=== PATIENT | male | born 1955 | race Caucasian/White ===

== ENCOUNTER 2021-04-06 11:19 | Emergency (ER) | payer OTHER, SELFPAY ==
[2021-04-06 12:04] VITALS: BP 158/65; PULSE 66; RESP 18; TEMP 36.9; O2SAT 97; BMI 25.1
[2021-04-06 13:57] LABS: Basophils % 0.4 %; Eosinophils # 0.1 10^3/uL (0.0-0.8); Eosinophils % 0.8 %; Hematocrit 45.9 % (42.0-52.0); Lymphocytes # 1.7 10^3/uL (0.8-4.8); Lymphocytes % 22.9 %; Mean Corpuscular HGB Conc 32.7 g/dL (30.0-36.0); Mean Corpuscular Hemoglobin 29.3 pg (28.0-34.0); Mean Corpuscular Volume 89.6 fL (80-94); Mean Platelet Volume 12.1 fL (7.4-10.4); Monocytes # 0.5 10^3/uL (0.2-0.9); Neutrophils # 5.08 10^3/uL (1.8-7.7); Neutrophils % 68.6 %; Nucleated Red Blood Cells % 0 %; Platelet Count 187 10^3/cmm (130-400); Red Blood Count 5.12 10^6/uL (4.1-5.3); White Blood Count 7.4 10^3/uL (4.0-10.0)
[2021-04-06 14:17] LABS: Alanine Aminotransferase 17 U/L (0-41); Albumin Level 4.4 g/dL (3.5-5.2); Alkaline Phosphatase 69 IU/L (40-130); Anion Gap 14.8 (5-19); Aspartate Amino Transferase 15 U/L (0-40); Blood Urea Nitrogen 11 mg/dL (8-23); Calcium 9.3 mg/dL (8.5-10.5); Carbon Dioxide 25 mmol/L (22-29); Chloride 104 mmol/L (98-107); Globulin 2.5 g/dL (1.3-4.6); Glomerular Filtration Rate 97.3 mL/min (90-130); Glucose 94 mg/dL (65-115); Osmolality Calculated 289 mOsm/kg (285-295); Potassium 3.8 mmol/L (3.5-5.1); Sodium 140 mmol/L (136-145); Total Bilirubin 0.5 mg/dL (0.15-1.2); Total Protein 6.9 g/dL (6.6-8.7)
== END 2021-04-06 15:18 | disposition left against medical advice (07) ==
PROVIDERS: Family Medicine
DX: Z53.21 Procedure and treatment not carried out due to patient leaving prior to being seen by health care provider (principal)
CPT/HCPCS: 80053; 85025

== ENCOUNTER → 2021-05-12 09:59 | Outpatient (BNVA) | payer OTHER, SELFPAY | PROVIDERS: PCP Family Medicine; Referring Provider Family Medicine; Visit Provider Urology | DX: Z12.5 Encounter for screening for malignant neoplasm of prostate (principal); N40.0 Benign prostatic hyperplasia without lower urinary tract symptoms; R97.20 Elevated prostate specific antigen [PSA] | CPT/HCPCS: 81003; G0103 ==

== ENCOUNTER → 2021-05-19 11:38 | Outpatient (BNVA) | payer OTHER, SELFPAY | PROVIDERS: PCP Family Medicine; Referring Provider Family Medicine; Visit Provider Specialist | DX: G30.9 Alzheimer's disease, unspecified (principal); F02.80 Dementia in other diseases classified elsewhere, unspecified severity, without behavioral disturbance, psychotic disturbance, mood disturbance, and anxiety; Z87.891 Personal history of nicotine dependence | CPT/HCPCS: 96116; 99205 ==

== ENCOUNTER → 2021-08-18 13:50 | Outpatient (BNVA) | payer OTHER, SELFPAY | PROVIDERS: PCP Family Medicine; Visit Provider Specialist | DX: G30.9 Alzheimer's disease, unspecified (principal); F02.80 Dementia in other diseases classified elsewhere, unspecified severity, without behavioral disturbance, psychotic disturbance, mood disturbance, and anxiety; I69.320 Aphasia following cerebral infarction; Z87.891 Personal history of nicotine dependence | CPT/HCPCS: 99213; 99214 ==

== ENCOUNTER 2021-11-03 21:39 | Emergency (ER) | payer OTHER, MEDICARE, SELFPAY ==
[2021-11-03 21:44] VITALS: BP 126/89; PULSE 66; RESP 20; TEMP 36.3; O2SAT 94; BMI 25.8
--- NOTE | 2021-11-03 21:46 | W.ED.ANXIETY ---
HPI - Anxiety General: Chief Complaint: Anxiety Stated Complaint: anxiety Time Seen by Provider: 11/03/21 21:45 History of Present Illness: HPI narrative: Mr. Yuan is a 66-year-old gentleman with history of hypertension and reported Alzheimer's who presents emergency department due to arm tingling and anxiety. He reports being in his baseline health earlier this morning. He got into an argument with his and noticed at that time some left arm tingling. This was mild in intensity and relieved itself over about 2-hour period. He did notice that his blood pressure was elevated in addition of this. He laid down for nap and woke up feeling mildly anxious. He denies associated shortness of breath or specific chest pain. Denies other specific changes in health. No others known provoking or exacerbating factors identified. MD complaint: anxiety and other Onset (ago): hour(s) Symptoms: other Severity: mild Quality: constant and improving Place: home History of similar episodes: No Provoking factors: emotional stress Relieving factors: nothing Exacerbating factors: nothing Associated symptoms: Reports no associated symptoms Review of Systems General: Reports: 10 or more systems reviewed and unremarkable except in HPI and below PFSH ED PFSH: Medical History Benign prostatic hyperplasia without lower urinary tract symptoms Cardiac arrhythmia, unspecified Elevated PSA Mildly elevated PSA with negative TRUS/biopsy in 2010. Large benign feeling AIDE. Essential (primary) hypertension Surgical History History of ankle surgery History of surgery on arm Family History Father , AT AGE 67 Cancer Mother , AT AGE 72 No problems noted. Social History Smoking and tobacco status: former smoker (quit 5 years ago) Alcohol intake: never Marital status: / Current occupational status: retired History of recent travel: No Physical Exam Const: COMMON NORMALS: alert GENERAL APPEARANCE: cooperative and well developed HENMT: COMMON NORMALS: normocephalic and atraumatic HEAD & SCALP: normocephalic and atraumatic THROAT: posterior oropharynx normal Eye: COMMON NORMALS: conjunctivae normal CONJUNCTIVA: Yes conjunctivae normal SCLERA: sclerae normal Neck/C-Spine: COMMON NORMALS: supple GENERAL: Yes trachea midline Resp: COMMON NORMALS: normal respiratory effort EFFORT & INSPECTION: Yes able to speak in complete sentences Cardio: COMMON NORMALS: regular rate and regular rhythm RATE: regular rate RHYTHM: regular rhythm GI: COMMON NORMALS: Soft to palpation PALPATION: Yes Soft to palpation and No Tenderness to palpation present (GI) PERCUSSION: normal to percussion Extremity: GENERAL: Yes normal exam except as noted and No edema Neuro: COMMON NORMALS: moves all extremities SENSORIUM/ORIENTATION: Yes alert and No Orientation impaired Psych: COMMON NORMALS: mental status grossly normal and Normal thought process present THOUGHT PROCESS: Normal thought process present Course ED course: - Patient was seen and evaluated by me at bedside -Vital signs obtained - Initial evaluation notable for exam as above, no reported symptoms persist. - Discussed possible etiology of patient's symptoms including need for further evaluation with labs and imaging as clinically warranted. The patient reported that he feels better and does not want any testing or treatment at this time. - Based on my interaction with the patient he has capacity to make medical decisions. - Based on patient history, evaluation, labs, and imaging as interpreted the most likely cause of the patient's condition is symptoms with uncertain cause - The results of ED evaluation were discussed with the patient including prescriptions and/or symptomatic cares (if applicable) including appropriate and responsible use, followup plan, and return precautions. The patient verbalized understanding and felt safe for discharge. - Patient discharged in satisfactory condition. Note: Click bubbles or prepopulated peña in note writing are used for assistance with data collection and billing and are inherently more limited than narrative and other text portions of this note. Please use narrative for additional clinical history and defer to narrative/free test for any case of contradictory information. If information appears in only free text or click bubble it should be considered present or absent as reported. Please contact note filing writer for clarifications of clinical information or contradictory information. MDM is a brief summary, contradictory or erroneous seeming information should be clarified and full note should be reviewed. Vital Signs: Vital signs: Vital Signs Temperature 97.4 F L 11/03/21 21:44 Pulse Rate 66 11/03/21 21:44 Respiratory Rate 20 H 11/03/21 21:44 Blood Pressure 126/89 11/03/21 21:44 Pulse Oximetry 94 11/03/21 21:44 MDM - Anxiety Medical Records: Attestation: I reviewed the patient's medical records. Lab Data: Attestation: I reviewed the patient's lab results. Discharge Plan Discharge Patient Disposition: Home Clinical Impression: Episode of hypertension, Arm pain Condition: Stable Prescriptions: No Action donepezil [Aricept] 10 mg tablet 10 mg PO DAILY Qty: 30 RF: 5 finasteride 5 mg tablet 5 mg PO DAILY RF: 0 omega-3 fatty acids [Fish Oil Concentrate] 1,000 mg capsule 1,000 mg PO BID RF: 0 lisinopril 10 mg tablet 10 mg PO DAILY RF: 0 tamsulosin 0.4 mg capsule 0.4 mg PO DAILY RF: 0 meclizine 25 mg tablet 25 mg PO TID PRNRF: 0 Discharge Orders: Discharge ED (Routine); Ordered 11/03/21 Ordered By: Robert Martin Referrals: Kristie Vasquez MD [Primary Care Provider] - Patient Instructions: Hypertension (ED), Arm Pain (ED) Activity Restrictions/Additional Instructions: Thank you for visiting the emergency department. You were seen and evaluated for arm pain associated with high blood pressure. The exact cause of the symptoms is unclear. Given that these symptoms can be related to atypical chest pain I recommended labs and imaging as well as EKG which you are declining at this time. Please follow-up with your primary care provider. Return to the emergency department for recurrent symptoms, chest pain, shortness of breath, any new neurologic deficit, or anything else that you are concerned about a feel needs emergency department evaluation. Coding Level of Care Code ED Machine Cell Tuber for Cierra Mao
== END 2021-11-03 22:18 | disposition home or self-care (01) ==
PROVIDERS: Emergency Provider Emergency Medicine; PCP Family Medicine
DX: I10 Essential (primary) hypertension (principal); M79.603 Pain in arm, unspecified; G30.9 Alzheimer's disease, unspecified; F02.80 Dementia in other diseases classified elsewhere, unspecified severity, without behavioral disturbance, psychotic disturbance, mood disturbance, and anxiety; Z87.891 Personal history of nicotine dependence
CPT/HCPCS: 99282

== ENCOUNTER 2021-11-09 16:07 | Emergency (ER) | payer OTHER, MEDICARE, SELFPAY ==
[2021-11-09 16:20] VITALS: BP 141/101; PULSE 70; RESP 16; TEMP 36.8; O2SAT 98
--- NOTE | 2021-11-09 16:24 | ECG_ITS ---
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
[2021-11-09 17:42] LABS: Basophils # 0.1 10^3/uL (0.0-0.1); Basophils % 0.6 %; Eosinophils # 0.1 10^3/uL (0.0-0.8); Eosinophils % 1.3 %; Hematocrit 48.2 % (42.0-52.0); Hemoglobin 16.2 g/dL (11.7-16.6); Lymphocytes # 3.2 10^3/uL (0.8-4.8); Lymphocytes % 32.2 %; Mean Corpuscular HGB Conc 33.6 g/dL (30.0-36.0); Mean Corpuscular Hemoglobin 29.6 pg (28.0-34.0); Mean Platelet Volume 11.5 fL (7.4-10.4); Monocytes # 0.8 10^3/uL (0.2-0.9); Monocytes % 7.9 %; Neutrophils # 5.72 10^3/uL (1.8-7.7); Neutrophils % 57.6 %; Nucleated Red Blood Cells % 0 %; Platelet Count 214 10^3/cmm (130-400); Red Blood Count 5.48 10^6/uL (4.1-5.3); Red Cell Distribution Width 12.7 % (12.1-15.1); White Blood Count 9.9 10^3/uL (4.0-10.0)
[2021-11-09 17:56] LABS: Alanine Aminotransferase 25 U/L (0-41); Albumin Level 4.4 g/dL (3.5-5.2); Alkaline Phosphatase 69 IU/L (40-130); Anion Gap 17.1 (5-19); Aspartate Amino Transferase 16 U/L (0-40); Blood Urea Nitrogen 14 mg/dL (8-23); Carbon Dioxide 22 mmol/L (22-29); Chloride 102 mmol/L (98-107); Globulin 2.8 g/dL (1.3-4.6); Glomerular Filtration Rate 75.2 mL/min (90-130); Glucose 101 mg/dL (65-115); Osmolality Calculated 285 mOsm/kg (285-295); Potassium 4.1 mmol/L (3.5-5.1); Sodium 137 mmol/L (136-145); Total Bilirubin 0.4 mg/dL (0.15-1.2); Total Protein 7.2 g/dL (6.6-8.7)
--- NOTE | 2021-11-09 19:49 | W.ED.GENADLT ---
HPI - General Adult General: Chief complaint: General Medical Stated complaint: HIGH BP DIZZY Time Seen by Provider: 11/09/21 19:20 History of Present Illness: HPI narrative: CC: Elevated BP HPI: [66]yo patient w/ x hx of HTN, vertigo presenting to the ED with complaints that his BP is not well controlled. Patient is on lisinopril 10mg daily. Baseline daily BP of 280/167 at home for the last 2 days with a manual blood pressure in automatic forearm blood pressure. 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 Denies chest pain, SOB, palpitation, N/V/D, pain radiating to the shoulder, headache, vision changes, LOC, or focal neurological deficits. Patient also denies light-headedness, syncope, vertigo abdominal pain, back pain. Tolerating PO meds without issues. Onset: 2 day Duration: ongoing Location: home Severity: mild Associated symptoms: Deny chest pain, dyspnea, nausea, rash, palpitations or vomiting Review of Systems Const: Denies: fever(s) or chills Eyes: Denies: change in vision ENMT: Denies: mouth pain Card: Denies: chest pain or palpitations Resp: Denies: dyspnea or non-productive cough GI: Denies: abdominal pain, nausea, vomiting or diarrhea : Denies: dysuria Musc: Denies: extremity pain Skin/Breast: Denies: rash or new lesions Neuro: Denies: weakness in extremities Psych: Reports: other (Normal mood) Jerrell/Lymph: Denies: easy bruising PFSH ED PFSH: Medical History Benign prostatic hyperplasia without lower urinary tract symptoms Cardiac arrhythmia, unspecified Elevated PSA Mildly elevated PSA with negative TRUS/biopsy in 2010. Large benign feeling AIDE. Essential (primary) hypertension Surgical History History of ankle surgery History of surgery on arm Family History Father , AT AGE 67 Cancer Mother , AT AGE 72 No problems noted. Social History Smoking and tobacco status: former smoker (quit 5 years ago) Alcohol intake: never Marital status: / Current occupational status: retired History of recent travel: No Physical Exam Const: COMMON NORMALS: alert HENMT: COMMON NORMALS: atraumatic HEAD & SCALP: atraumatic MOUTH: moist mucous membranes not abnormal Eye: COMMON NORMALS: EOMs intact bilaterally and conjunctivae normal CONJUNCTIVA: Yes conjunctivae normal Neck/C-Spine: COMMON NORMALS: full ROM and supple Resp: COMMON NORMALS: normal respiratory effort and clear to auscultation bilaterally AUSCULTATION: clear to auscultation bilaterally Cardio: COMMON NORMALS: regular rate RATE: regular rate GI: COMMON NORMALS: Soft to palpation and non-tender PALPATION: Yes Soft to palpation Extremity: COMMON NORMALS: full ROM Neuro: SENSORIUM/ORIENTATION: Yes alert MOTOR EXAM: No Abnormal motor strength present and Other motor observations present (5 out of 5 strength in all extremities, sensation intact in all extremities) Psych: COMMON NORMALS: speech normal SPEECH: Yes normal speech MOOD & AFFECT: Yes euthymic mood Course Vital Signs: Vital signs: Vital Signs Temperature 98.2 F 11/09/21 16:20 Pulse Rate 70 11/09/21 16:20 Respiratory Rate 16 11/09/21 16:20 Blood Pressure 141/101 11/09/21 16:20 Pulse Oximetry 98 11/09/21 16:20 MDM - General Adult MDM Narrative: Medical decision making narrative: [66]yo patient w/ hx of HTN on lisinophril 10mg and vertigo presenting to the ED with high BP readings x 2 day without other medical complaints. BP in the ED of 141/101 on arrival. Given presentation, history and exam, I do not suspect aortic dissection, hypertensive encephalopathy, intracranial hemorrhage, ACS, TIA/CVA, flash pulmonary edema. [7:51pm] On reassessment patient blood pressure 141/101 improved to 126/89 without any intervention. Patient had normal creatinine. I do not suspect the patient has malignant/hypertensive emergency currently. However, patient may have stressors at home for which he has elevated blood pressure. Patient is given close follow-up in 2 days for reassessment of blood pressure to ensure that his numbers are adequately controlled. Patient did not require any intervention in the emergency room today. I have given patient follow up with our patient case coordinator to be seen by our outpatient PCP for blood pressure recheck in 48-72 hrs. Patient aware of a call from our patient case coordinator to schedule for appointment(s) and verbalizes understanding of the importance of following up. Based on history, exam, vital signs, and work up (as indicated) I do not suspect an ongoing emergent medical condition, and I believe the patient is safe for discharge and outpatient follow-up. The plan of care was discussed with the patient and all questions were answered. The patient agrees with the plan of care and is discharged in stable condition with verbal and written instructions, and verbalized understanding and ability to comply. I discussed the diagnosis and treatment plan at length with the patient. The patient understands signs and symptoms (including those which are new or worsening) which should prompt return to the ED. The patient is to seek prompt outpatient follow-up as noted verbally and/or in the discharge instructions. At the time of discharge the patient is well-appearing, well-hydrated, non-toxic, and assures appropriate follow-up as an outpatient. Lab Data: Labs: Lab Results 11/09/21 11/09/21 17:32 17:32 WBC 9.9 10^3/uL 10^3/ uL (4.0-10.0) RBC 5.48 10^6/uL H 10 ^6/uL (4.1-5.3) Hgb 16.2 g/dL g/dL (11.7-16.6) Hct 48.2 % % (42.0-52.0) MCV 88.0 fl fl (80-94) MCH 29.6 pg pg (28.0-34.0) MCHC 33.6 g/dL g/dL (30.0-36.0) RDW 12.7 % % (12.1-15.1) Plt Count 214 10^3/cmm 10^3 /cmm (130-400) MPV 11.5 fL H fL (7.4-10.4) Neut % (Auto) 57.6 % % Lymph % (Auto) 32.2 % % [place] % (Auto) 7.9 % % Eos % (Auto) 1.3 % % Baso % (Auto) 0.6 % % Neut # (Auto) 5.72 10^3/uL 10^3 /uL (1.8-7.7) Lymph # (Auto) 3.2 10^3/uL 10^3/ uL (0.8-4.8) [place] # (Auto) 0.8 10^3/uL 10^3/ uL (0.2-0.9) Eos # (Auto) 0.1 10^3/uL 10^3/ uL (0.0-0.8) Baso # (Auto) 0.1 10^3/uL 10^3/ uL (0.0-0.1) Nucleated RBC % (a uto) 0 % % Nucleated RBCs # 0.0 /100WBC /100W BC Sodium 137 mmol/L mmol/L (136-145) Potassium 4.1 mmol/L mmol/L (3.5-5.1) Chloride 102 mmol/L mmol/L (98-107) Carbon Dioxide 22 mmol/L mmol/L (22-29) Anion Gap 17.1 (5-19) BUN 14 mg/dL mg/dL (8-23) Creatinine 1.0 mg/dL mg/dL (0.7-1.2) GFR Calculation 75.2 mL/min L mL/ min (90-130) Glucose 101 mg/dL mg/dL (65-115) Calculated Osmolal ity 285 mOsm/kg mOsm/ kg (285-295) Calcium 9.0 mg/dL mg/dL (8.5-10.5) Total Bilirubin 0.4 mg/dL mg/dL (0.15-1.2) AST 16 U/L U/L (0-40) ALT 25 U/L U/L (0-41) Alkaline Phosphata se 69 IU/L IU/L (40-130) Total Protein 7.2 g/dL g/dL (6.6-8.7) Albumin 4.4 g/dL g/dL (3.5-5.2) Globulin 2.8 g/dL g/dL (1.3-4.6) Discharge Plan Discharge Patient Disposition: Home Clinical Impression: Hypertension Condition: Stable Prescriptions: No Action donepezil [Aricept] 10 mg tablet 10 mg PO DAILY Qty: 30 RF: 5 finasteride 5 mg tablet 5 mg PO DAILY RF: 0 omega-3 fatty acids [Fish Oil Concentrate] 1,000 mg capsule 1,000 mg PO BID RF: 0 lisinopril 10 mg tablet 10 mg PO DAILY RF: 0 tamsulosin 0.4 mg capsule 0.4 mg PO DAILY RF: 0 meclizine 25 mg tablet 25 mg PO TID PRNRF: 0 Discharge Orders: Discharge ED (Routine); Ordered 11/09/21 Ordered By: Nhung Lopez Referrals: Kristie Vasquez MD [Primary Care Provider] - Discharge Diet: Advance as tolerated Discharge Activity: Resume usual activity Patient Instructions: Chronic Hypertension (ED) Activity Restrictions/Additional Instructions: You need to follow-up with your primary care provider for further adjustment of your blood pressure. Your blood pressure puts you at risk for developing strokes and heart attack. Therefore it is very important for you to follow-up with this number to see if the numbers improve gradually. Because blood pressure adjustment is a gradual process, were not able to change it in 1 visit. Therefore please log your blood pressure and follow-up with your primary care provider in the next 72 hours for further adjustment of your blood pressures. Coding Level of Care Code ED Husbandry Technician for Cierra Mao
[2021-11-09 19:59] VITALS: BP 137/87; PULSE 78; RESP 16; O2SAT 97
--- NOTE | 2021-11-10 09:50 | DCPLANNER ---
proposal manager had message to speak with patient about scheduling a follow up appointment for patient with primary care. proposal manager called phone number [phone], unable to speak with anyone at this time or leave a voicemail.
== END 2021-11-09 19:59 | disposition home or self-care (01) ==
PROVIDERS: Nurse Practitioner Family; Emergency Provider Emergency Medicine; PCP Family Medicine
DX: I10 Essential (primary) hypertension (principal); Z87.891 Personal history of nicotine dependence
CPT/HCPCS: 80053; 85025; 93005; 99283

== ENCOUNTER → 2021-11-18 09:10 | Outpatient (BNVA) | payer OTHER, MEDICARE, SELFPAY | PROVIDERS: PCP Family Medicine; Visit Provider Specialist | DX: G30.9 Alzheimer's disease, unspecified (principal); F02.80 Dementia in other diseases classified elsewhere, unspecified severity, without behavioral disturbance, psychotic disturbance, mood disturbance, and anxiety; R42 Dizziness and giddiness; Z87.891 Personal history of nicotine dependence | CPT/HCPCS: 96116; 99214 ==

== ENCOUNTER → 2022-02-22 08:57 | Outpatient (BNVA) | payer OTHER, MEDICARE, SELFPAY | PROVIDERS: PCP Family Medicine; Visit Provider Specialist | DX: G30.9 Alzheimer's disease, unspecified (principal); F02.80 Dementia in other diseases classified elsewhere, unspecified severity, without behavioral disturbance, psychotic disturbance, mood disturbance, and anxiety; Z87.891 Personal history of nicotine dependence | CPT/HCPCS: 99213; 99214 ==

== ENCOUNTER → 2022-03-15 09:24 | Outpatient (BNVA) | payer OTHER, SELFPAY | PROVIDERS: PCP Family Medicine; Visit Provider Specialist | DX: G30.9 Alzheimer's disease, unspecified (principal); F02.80 Dementia in other diseases classified elsewhere, unspecified severity, without behavioral disturbance, psychotic disturbance, mood disturbance, and anxiety; R11.0 Nausea | CPT/HCPCS: 99213; 99214 ==

== ENCOUNTER 2022-04-06 06:00 | Outpatient (RCR) | payer OTHER, SELFPAY | END 2022-04-22 23:59 | disposition home or self-care (01) | LOC: TPT 06:00 | PROVIDERS: PCP Family Medicine; Referring Provider Specialist; Visit Provider Specialist | DX: R42 Dizziness and giddiness (principal) | CPT/HCPCS: 97110; 97163 ==

== ENCOUNTER 2022-04-23 06:00 | Outpatient (RCR) | payer OTHER, SELFPAY | END 2022-05-23 23:59 | disposition home or self-care (01) | LOC: TPT 06:00 | PROVIDERS: PCP Family Medicine; Referring Provider Specialist; Visit Provider Specialist | DX: R42 Dizziness and giddiness (principal) | CPT/HCPCS: 97110; 97140 ==

== ENCOUNTER → 2022-05-10 14:10 | Outpatient (BNVA) | payer OTHER, SELFPAY | PROVIDERS: PCP Family Medicine; Visit Provider Urology | DX: R97.20 Elevated prostate specific antigen [PSA] (principal) | CPT/HCPCS: 84153 ==

== ENCOUNTER → 2022-05-13 13:02 | Outpatient (BNVA) | payer OTHER, SELFPAY | PROVIDERS: PCP Family Medicine; Visit Provider Urology | DX: N40.0 Benign prostatic hyperplasia without lower urinary tract symptoms (principal); R97.20 Elevated prostate specific antigen [PSA] | CPT/HCPCS: 81003; 99213 ==

== ENCOUNTER 2022-05-24 06:00 | Outpatient (RCR) | payer OTHER, SELFPAY | END 2022-06-02 14:18 | disposition home or self-care (01) | LOC: TPT 06:00 | PROVIDERS: PCP Family Medicine; Referring Provider Specialist; Visit Provider Specialist | DX: R42 Dizziness and giddiness (principal) | CPT/HCPCS: 97110; 97164 ==

== ENCOUNTER 2022-08-10 10:04 | Emergency (ER) | payer OTHER, SELFPAY ==
[2022-08-10] VITALS (7 sets, daily range): BP systolic 125–127; BP diastolic 85–90; PULSE 63–85; RESP 14–20; TEMP 36.7; O2SAT 91–98; BMI 26.5
--- NOTE | 2022-08-10 10:15 | ECG_ITS ---
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 Measurements Intervals [place] Rate: 83 P: 44 CT: 161 QRS: 47 QRSD: 108 T: 54 QT: 358 QTc: 422 Interpretive Statements SINUS RHYTHM WITH OCCASIONAL VENTRICULAR PREMATURE COMPLEXES NONSPECIFIC T-WAVE ABNORMALITY Compared to ECG 11/09/2021 16:27:38 Ventricular premature complex(es) now present T-wave abnormality now present Electronically Signed On 08-11-2022 5:53:41 CDT by Rebekah Eng M.D. [id number]
[2022-08-10 10:38] LABS: Basophils # 0.1 10^3/uL (0.0-0.1); Basophils % 0.8 %; Eosinophils # 0.1 10^3/uL (0.0-0.8); Hematocrit 47.3 % (42.0-52.0); Hemoglobin 16.2 g/dL (11.7-16.6); Lymphocytes # 1.9 10^3/uL (0.8-4.8); Lymphocytes % 24.4 %; Mean Corpuscular HGB Conc 34.2 g/dL (30.0-36.0); Mean Corpuscular Hemoglobin 30.5 pg (28.0-34.0); Mean Corpuscular Volume 89.1 fl (80-94); Mean Platelet Volume 11.7 fL (7.4-10.4); Monocytes # 0.6 10^3/uL (0.2-0.9); Monocytes % 7.3 %; Neutrophils # 5.11 10^3/uL (1.8-7.7); Neutrophils % 66.2 %; Nucleated Red Blood Cells % 0 %; Platelet Count 193 10^3/cmm (130-400); Red Blood Count 5.31 10^6/uL (4.1-5.3); Red Cell Distribution Width 12.3 % (12.1-15.1); White Blood Count 7.7 10^3/uL (4.0-10.0)
--- NOTE | 2022-08-10 10:46 | PC.NURSE ---
PT PLACED ON CONTINUOUS NIBP, SPO2, AND CM
[2022-08-10 11:03] LABS: Alanine Aminotransferase 34 U/L (0-41); Albumin Level 4.3 g/dL (3.5-5.2); Alkaline Phosphatase 64 U/L (40-130); Anion Gap 16.4 (5-19); Aspartate Amino Transferase 29 U/L (0-40); Blood Urea Nitrogen 8 mg/dL (8-23); Calcium 9.6 mg/dL (8.5-10.5); Carbon Dioxide 22 mmol/L (22-29); Chloride 105 mmol/L (98-107); Globulin 3.4 g/dL (1.3-4.6); Glomerular Filtration Rate 84.7 mL/min (90-130); Glucose 110 mg/dL (65-115); Osmolality Calculated 287 mOsm/kg (285-295); Potassium 4.4 mmol/L (3.5-5.1); Sodium 139 mmol/L (136-145); Total Bilirubin 0.7 mg/dL (0.15-1.2); Total Protein 7.7 g/dL (6.6-8.7)
--- NOTE | 2022-08-10 12:18 | W.ED.ARRPALP ---
HPI - Arrhythmia/Palpitations General: Chief Complaint: Arrhythmia/Palpitations Stated Complaint: abnormal heartbeat Time Seen by Provider: 08/10/22 10:10 Source: patient Mode of arrival: ambulatory History of Present Illness: 67-year-old male presents emergency room complaining abnormal heartbeat. He was up and walking this morning he walked around [place] in [place] times he never had any chest pain there is a nurse that stops by to check on him a couple of times a week they noticed an irregular heartbeat and he was directed to the emergency room. He has no known history of any documented arrhythmias he is not on any negative Odilia tropes no recent change in medications. He states he felt a little lightheaded and weak like his eyes were fogging up while he was in route to the hospital. He had about a 20+ mile drive to get here. He never actually did syncopized. He has a history of Alzheimer's disease and has some attendant dizziness with that at times been referred to physical therapy for it in the past by Dr. Gold. On arrival here he denies any chest pain or shortness of breath no abdominal pain he states he feels completely fine now he is not having any further symptoms he never had any rapid heart rate and repeatedly denies any chest pain with exertional activity walking this morning. MD complaint: palpitations Onset (ago): hour(s) Duration: intermittent and now resolved Severity: mild Context: occurred during exertion Associated symptoms: Deny anxiety, cough, diaphoresis, muscle cramps, nausea, paresthesias, pre-syncope, sense of impending doom, short of breath, syncope or vomiting Review of Systems Const: Denies: fever(s), chills or diaphoresis ENMT: Denies: throat pain, ear or mastoid pain, nasal discharge or nasal congestion Card: Denies: syncope or pre-syncope Resp: Denies: dyspnea, productive cough or non-productive cough GI: Denies: abdominal pain, nausea or vomiting : Denies: flank pain, difficulty urinating, dysuria, urinary frequency or urinary urgency Musc: Denies: neck pain, back pain or muscle cramps Skin/Breast: Denies: rash or pruritus Psych: Denies: anxiety PFSH ED PFSH: Medical History Benign prostatic hyperplasia without lower urinary tract symptoms Cardiac arrhythmia, unspecified Elevated PSA Mildly elevated PSA with negative TRUS/biopsy in 2011. Large benign feeling AIDE. Essential (primary) hypertension Surgical History History of ankle surgery History of surgery on arm Family History Father , AT AGE 67 Cancer Mother , AT AGE 72 No problems noted. Social History Smoking and tobacco status: former smoker Alcohol intake: never Marital status: / Current occupational status: retired History of recent travel: No Physical Exam Const: COMMON NORMALS: no acute distress GENERAL APPEARANCE: cooperative and comfortable ORIENTATION/CONSCIOUSNESS: Yes awake HENMT: COMMON NORMALS: normocephalic, atraumatic and hearing grossly normal bilaterally HEAD & SCALP: normocephalic and atraumatic Resp: COMMON NORMALS: normal respiratory effort, No retractions, No use of accessory muscles and clear to auscultation bilaterally AUSCULTATION: clear to auscultation bilaterally Cardio: COMMON NORMALS: regular rate, regular rhythm and No murmurs present (Cardio) RATE: regular rate RHYTHM: regular rhythm GI: COMMON NORMALS: Soft to palpation and No hepatosplenomegaly present AUSCULTATION: Yes normoactive bowel sounds PALPATION: Yes Soft to palpation, No Tenderness to palpation present (GI), No Guarding due to palpation present (GI) and Yes No hepatosplenomegaly present Extremity: COMMON NORMALS: normal to inspection, capillary refill normal, no clubbing, cyanosis or edema, no calf tenderness and no pedal edema Skin: COMMON NORMALS: no rashes or lesions noted GENERAL SKIN EXAM: no rashes or lesions noted Course Vital Signs: Vital signs: Vital Signs Temperature 98.1 F 08/10/22 10:17 Pulse Rate 83 08/10/22 10:17 Respiratory Rate 14 08/10/22 10:17 Blood Pressure 126/87 08/10/22 10:17 Pulse Oximetry 98 08/10/22 10:17 Oxygen Delivery Me thod 08/10/22 10:17 MDM - Arrhythmia/Palpitations Medical Decision Making No arrhythmias she is never had any chest pain labs are normal. We will go and discharge the patient home and going to set him up for an outpatient Holter monitor follow-up with his primary care Medical Records I reviewed the patient's medical records. Lab Data I reviewed the patient's lab results. : 08/10/22 10:30 08/10/22 10:30 Laboratory Results WBC 7.7 10^3/uL (4.0-10.0) 08/10/22 10:30 RBC 5.31 10^6/uL (4.1-5.3) H 08/10/22 10:30 Hgb 16.2 g/dL (11.7-16.6) 08/10/22 10:30 Hct 47.3 % (42.0-52.0) 08/10/22 10:30 MCV 89.1 fl (80-94) 08/10/22 10:30 MCH 30.5 pg (28.0-34.0) 08/10/22 10:30 MCHC 34.2 g/dL (30.0-36.0) 08/10/22 10:30 RDW 12.3 % (12.1-15.1) 08/10/22 10:30 Plt Count 193 10^3/cmm (130-400) 08/10/22 10:30 MPV 11.7 fL (7.4-10.4) H 08/10/22 10:30 Neut % (Auto) 66.2 % 08/10/22 10:30 Lymph % (Auto) 24.4 % 08/10/22 10:30 [place] % (Auto) 7.3 % 08/10/22 10:30 Eos % (Auto) 1.0 % 08/10/22 10:30 Baso % (Auto) 0.8 % 08/10/22 10:30 Neut # (Auto) 5.11 10^3/uL (1.8-7.7) 08/10/22 10:30 Lymph # (Auto) 1.9 10^3/uL (0.8-4.8) 08/10/22 10:30 [place] # (Auto) 0.6 10^3/uL (0.2-0.9) 08/10/22 10:30 Eos # (Auto) 0.1 10^3/uL (0.0-0.8) 08/10/22 10:30 Baso # (Auto) 0.1 10^3/uL (0.0-0.1) 08/10/22 10:30 Nucleated RBC % (auto) 0 % 08/10/22 10:30 Nucleated RBCs # 0.0 /100WBC 08/10/22 10:30 Sodium 139 mmol/L (136-145) 08/10/22 10:30 Potassium 4.4 mmol/L (3.5-5.1) 08/10/22 10:30 Chloride 105 mmol/L (98-107) 08/10/22 10:30 Carbon Dioxide 22 mmol/L (22-29) 08/10/22 10:30 Anion Gap 16.4 (5-19) 08/10/22 10:30 BUN 8 mg/dL (8-23) 08/10/22 10:30 Creatinine 0.9 mg/dL (0.7-1.2) 08/10/22 10:30 GFR Calculation 84.7 mL/min (90-130) L 08/10/22 10:30 Glucose 110 mg/dL (65-115) 08/10/22 10:30 Calculated Osmolality 287 mOsm/kg (285-295) 08/10/22 10:30 Calcium 9.6 mg/dL (8.5-10.5) 08/10/22 10:30 Total Bilirubin 0.7 mg/dL (0.15-1.2) 08/10/22 10:30 AST 29 U/L (0-40) 08/10/22 10:30 ALT 34 U/L (0-41) 08/10/22 10:30 Alkaline Phosphatase 64 U/L (40-130) 08/10/22 10:30 Total Protein 7.7 g/dL (6.6-8.7) 08/10/22 10:30 Albumin 4.3 g/dL (3.5-5.2) 08/10/22 10:30 Globulin 3.4 g/dL (1.3-4.6) 08/10/22 10:30 Discharge Plan Discharge Patient Disposition: Home Clinical Impression: Palpitations, Alzheimer disease Condition: Stable Prescriptions: No Action citalopram 20 mg tablet 20 mg PO DAILY Qty: 30 6RF finasteride 5 mg tablet 5 mg PO DAILY omega-3 fatty acids [Fish Oil Concentrate] 1,000 mg capsule 1,000 mg PO BID lisinopril 10 mg tablet 10 mg PO DAILY Rx Instructions: Take one-half by mouth once a day for heart or blood pressure. tamsulosin 0.4 mg capsule 0.4 mg PO DAILY meclizine 25 mg tablet 25 mg PO TID PRN galantamine 4 mg tablet 4 mg PO BID Qty: 60 5RF Rx Instructions: administer with AM and PM meals memantine 5 mg tablet 5 mg PO BID Qty: 60 5RF Rx Instructions: Take 1 tablet twice a day Discharge Orders: Discharge ED (Routine); Ordered 08/10/22 Ordered By: Yariel Foley Referrals: Kristie Vasquez MD [Primary Care Provider] - Patient Instructions: Opioid Safety, Pain Management Activity Restrictions/Additional Instructions: Case management make arrangements for you to have a outpatient 48-hour Holter monitor. After this is completed follow-up with your primary care doctor. Return to emergency room if any worsening problems. Coding Level of Care Code ED Unloader Operator for Cierra Mao Exam Detailed
--- NOTE | 2022-08-12 10:17 | DCPLANNER ---
Addendum entered by Anne Magaña 08/13/22 13:14: bilingual branch manager received the following message from [facility] regarding follow up appointment: left message to return call to clinic to make new patient appt - [facility] auth/ docs scanned in chart Original Note: bilingual branch manager had message to schedule an outpatient 48 hour halter monitor for patient at [facility]. Patient has [facility] insurance, the test can not be ordered from the ER. bilingual branch manager sent patients information to the front office staff at [facility]. bilingual branch manager also sent patients information to Rika with [facility] for the authorization process could be started.
== END 2022-08-10 12:54 | disposition home or self-care (01) ==
PROVIDERS: Emergency Provider Family Medicine; PCP Family Medicine
DX: R00.2 Palpitations (principal); G30.9 Alzheimer's disease, unspecified; F02.80 Dementia in other diseases classified elsewhere, unspecified severity, without behavioral disturbance, psychotic disturbance, mood disturbance, and anxiety; I10 Essential (primary) hypertension; Z87.891 Personal history of nicotine dependence
CPT/HCPCS: 80053; 85025; 93005; 99284

== ENCOUNTER → 2022-08-24 07:42 | Outpatient (BNVA) | payer OTHER, SELFPAY | PROVIDERS: PCP Family Medicine; Visit Provider Specialist | DX: G30.9 Alzheimer's disease, unspecified (principal); F02.80 Dementia in other diseases classified elsewhere, unspecified severity, without behavioral disturbance, psychotic disturbance, mood disturbance, and anxiety | CPT/HCPCS: 99213 ==

== ENCOUNTER → 2022-10-05 14:27 | Outpatient (BNVA) | payer OTHER, SELFPAY | PROVIDERS: PCP Family Medicine; Visit Provider Internal Medicine Cardiovascular Disease | DX: R00.2 Palpitations (principal); I10 Essential (primary) hypertension; E78.5 Hyperlipidemia, unspecified; R94.31 Abnormal electrocardiogram [ECG] [EKG]; R07.89 Other chest pain | CPT/HCPCS: 93005; 99205 ==

== ENCOUNTER 2022-10-29 09:32 | Emergency (ER) | payer OTHER, SELFPAY ==
[2022-10-29 09:35] VITALS: BP 132/94; PULSE 94; RESP 16; TEMP 36.3; O2SAT 97; BMI 25.8
--- NOTE | 2022-10-29 09:55 | CTR_ITS ---
PROCEDURE INFORMATION: Exam: CT Head Without Contrast Exam date and time: 10/29/2022 10:05 AM Age: 67 years old Clinical indication: Dizziness; Additional info: Dizziness, weakness, near syncope TECHNIQUE: Imaging protocol: Computed tomography of the head without contrast. Radiation optimization: All CT scans at this facility use at least one of these dose optimization techniques: automated exposure control; mA and/or kV adjustment per patient size (includes targeted exams where dose is matched to clinical indication); or iterative reconstruction. COMPARISON: No relevant prior studies available. RADIATION DOSE METRICS: Total DLP (mGy-cm): 1167.58 FINDINGS: Brain: There is brain parenchymal atrophy, related to the patient's age. [id number] nonspecific white matter changes are seen. There are no intracranial masses, mass effect or midline shift. There is no cerebral edema. There is no subarachnoid hemorrhage. There are no intra-or extra-axial fluid collections, intraventricular or intraparenchymal hemorrhage. No definite areas of low attenuation or joel-white matter junction obscuration seen on the noncontrast CT to suggest a subacute stroke - although the underlying white matter changes limit assessment. Cerebral ventricles: The lateral, third and fourth ventricles appear unremarkable. The suprasellar and basilar cisterns appear unremarkable. Paranasal sinuses: The visualized sinuses are unremarkable. Mild leftward deviation of the midline nasal septum is seen. Mastoid air cells: Visualized mastoid air cells are unremarkable. Orbital cavities: The visualized orbits are unremarkable. Bones/joints: No definite acute osseous or skull abnormalities seen. Soft tissues: Unremarkable. Notes: If there is further clinical concern for intracranial pathology, MRI of the brain may be performed for further assessment. CT/CT head wo con* [id number] IMPRESSION: Atrophic changes, as noted above. No non-contrast CT evidence of intracranial hemorrhage, masses or subacute stroke.
--- NOTE | 2022-10-29 10:02 | ECG_ITS ---
[facility] Test Date: 2022-10-29 Pat Name: Josué Jara Department: Room: Gender: Male Conventions Assistant: : 1955 Requested By: Yariel Downing Order Number: [id number] Kelly MD: Rebekah Eng M.D. Measurements Intervals [place] Rate: 63 P: 49 LA: 174 QRS: 51 QRSD: 114 T: 57 QT: 407 QTc: 419 Interpretive Statements SINUS RHYTHM MODERATE INTRAVENTRICULAR CONDUCTION DELAY [110+ ms QRS DURATION] Compared to ECG 08/10/2022 10:15:26 Intraventricular conduction delay now present Ventricular premature complex(es) no longer present T-wave abnormality no longer present Electronically Signed On 10-29-2022 16:54:08 NON PROFIT FINANCIAL CONTROLLER by Rebekah Eng M.D. [id number]
[2022-10-29 10:04] LABS: Add Urine Microscopic? NO; Charge for UA Resulting for Rev
[2022-10-29 10:13] LABS: Bilirubin Urine Neg (Negative); Blood Urine Neg (Negative); Glucose Urine UA Norm (Normal); Ketones Urine Negative (Negative); Leukocyte Esterase Urine Negative (Negative); Nitrate Urine Negative (Negative); Protein Urine Neg (Negative); Specific Gravity, Urine 1.015 (1.005-1.030); Urine Appearance Clear (CLEAR); Urine Color Yellow (Yellow); Urobilinogen Urine Neg (Negative); pH Urine 7 (5-7)
[2022-10-29 10:48] LABS: Basophils % 0.5 %; Eosinophils # 0.1 10^3/uL (0.0-0.8); Eosinophils % 0.6 %; Hematocrit 45.1 % (42.0-52.0); Hemoglobin 15.3 g/dL (11.7-16.6); Lymphocytes # 1.4 10^3/uL (0.8-4.8); Lymphocytes % 17.6 %; Mean Corpuscular HGB Conc 33.9 g/dL (30.0-36.0); Mean Corpuscular Hemoglobin 30.1 pg (28.0-34.0); Mean Corpuscular Volume 88.8 fl (80-94); Mean Platelet Volume 11.1 fL (7.4-10.4); Monocytes # 0.5 10^3/uL (0.2-0.9); Monocytes % 6.9 %; Neutrophils # 5.71 10^3/uL (1.8-7.7); Neutrophils % 74.1 %; Nucleated Red Blood Cells % 0 %; Platelet Count 232 10^3/cmm (130-400); Red Blood Count 5.08 10^6/uL (4.1-5.3); Red Cell Distribution Width 12.3 % (12.1-15.1); White Blood Count 7.7 10^3/uL (4.0-10.0)
--- NOTE | 2022-10-29 10:55 | ED_ITS ---
HPI - Dizziness General: Chief Complaint: Dizziness Stated Complaint: dizzy Time Seen by Provider: 10/29/22 09:45 Source: patient Mode of arrival: ambulatory History of Present Illness: HPI Narrative: 67-year-old male presents emergency room with complaints of dizziness. He states he got up this morning was very dizzy felt like he was going to pass out. This is not a new episode for him this been going on for nearly a year. He feels dizzy when he first stands up that resolves after a bit. He relates it to having begun after he had a skull fracture 10 or more years ago. He uses meclizine occasionally. No recent trauma no other changes. He states he was hoping to come in that we can give him a pill that would make it all stop. He has no lateralizing symptoms. Facial muscles symmetrical and symmetrical use and coordination of extremities gait and balance seem to be somewhat hesitant but are intact. MD elicited complaint: dizziness and lightheadedness Pertinent past history: other (History of skull fracture) Onset (ago): year(s) Severity: mild Description: sense of movement Context: change in body position Exacerbating factors: nothing Relieving factors: nothing Associated symptoms: Denies change in hearing, chest pain, chills, cough, diaphoresis, ear discharge, ear pressure, fevers/chills, headache(s), malaise, nausea, nasal congestion, palpitations, rash, short of breath, syncope, tinnitus, vomiting or weakness Review of Systems Const: Denies: fever(s), chills, fatigue, malaise or diaphoresis ENMT: Denies: ear discharge, change in hearing, tinnitus or nasal congestion Card: Denies: chest pain, palpitations or syncope Resp: Denies: dyspnea, productive cough or non-productive cough GI: Denies: abdominal pain, nausea or vomiting : Denies: flank pain, dysuria, urinary frequency or urinary urgency Skin/Breast: Denies: rash or pruritus Neuro: Denies: headache(s) PFSH ED PFSH: Medical History Benign prostatic hyperplasia without lower urinary tract symptoms Cardiac arrhythmia, unspecified Elevated PSA Mildly elevated PSA with negative TRUS/biopsy in 2010. Large benign feeling AIDE. Essential (primary) hypertension Surgical History History of ankle surgery History of surgery on arm Family History Father , AT AGE 67 Cancer Mother , AT AGE 72 No problems noted. Denies family history of Diabetes CAD (coronary artery disease) Clotting disorder Dementia Chronic kidney disease (CKD) Suicide Anesthesia complication Bleeding disorder Lung disease Stroke Social History Smoking and tobacco status: never smoked Alcohol intake: never Marital status: / Current occupational status: retired History of recent travel: No Physical Exam Const: COMMON NORMALS: no acute distress GENERAL APPEARANCE: cooperative and comfortable ORIENTATION/CONSCIOUSNESS: Yes awake, Yes oriented to person, Yes oriented to place and Yes oriented to time HENMT: COMMON NORMALS: normocephalic, atraumatic, hearing grossly normal bilaterally, external ears normal, EAC's normal, TM's normal bilaterally, Normal nasal mucous membranes and turbinates present, moist oral mucous membranes and oropharynx normal HEAD & SCALP: normocephalic and atraumatic NOSE: Normal nasal mucous membranes and turbinates present EXTERNAL EAR: Yes external ears normal EXTERNAL AUDITORY CANAL: EAC's normal TYMPANIC MEMBRANE: TM's normal bilaterally Eye: COMMON NORMALS: Equal, round and reactive pupils present, EOMs intact bilaterally, conjunctivae normal and no scleral icterus CONJUNCTIVA: Yes conjunctivae normal PUPIL: Yes Equal, round and reactive pupils present Neck/C-Spine: COMMON NORMALS: full ROM, no lymphadenopathy, supple and no JVD Lymph: LYMPHATIC: no lymphadenopathy noted and no lymphedema noted Resp: COMMON NORMALS: normal respiratory effort, No retractions, No use of accessory muscles and clear to auscultation bilaterally AUSCULTATION: clear to auscultation bilaterally Cardio: COMMON NORMALS: no JVD, regular rate, regular rhythm and No murmurs present (Cardio) RATE: regular rate RHYTHM: regular rhythm GI: COMMON NORMALS: Soft to palpation and No hepatosplenomegaly present AUSCULTATION: Yes normoactive bowel sounds PALPATION: Yes Soft to palpation, No Tenderness to palpation present (GI), No Guarding due to palpation present (GI) and Yes No hepatosplenomegaly present Extremity: COMMON NORMALS: normal to inspection, capillary refill normal, no clubbing, cyanosis or edema, no calf tenderness and no pedal edema Neuro: SENSORIUM/ORIENTATION: Yes oriented to person, Yes oriented to place and Yes oriented to time Skin: COMMON NORMALS: no rashes or lesions noted GENERAL SKIN EXAM: no rashes or lesions noted Course Vital Signs: Vital signs: Vital Signs Temperature 97.4 F L 10/29/22 09:35 Pulse Rate 70 10/29/22 12:48 Respiratory Rate 16 10/29/22 12:48 Blood Pressure 153/93 10/29/22 12:48 Pulse Oximetry 95 10/29/22 12:48 Oxygen Delivery Me thod 10/29/22 09:35 MDM - Dizziness Medical Decision Making Very longstanding problem no new findings no new trauma labs unremarkable. Will trial Ativan to use as needed for his dizziness in place of the meclizine and see if that is more efficacious. Follow-up with his primary care doctor. Some of this may also be due to his metoprolol however he is not particular bradycardic and his blood pressures are satisfactory at this time so we did not make any changes to his 10-day hypertensive list. Medical Records I reviewed the patient's medical records. Lab Data I reviewed the patient's lab results. 10/29/22 10:35 10/29/22 10:[address] 10/29/22 09:55 IMPRESSION: Atrophic changes, as noted above. No non-contrast CT evidence of intracranial hemorrhage, masses or subacute stroke. Laboratory Results WBC 7.7 10^3/uL (4.0-10.0) 10/29/22 10:35 RBC 5.08 10^6/uL (4.1-5.3) 10/29/22 10:35 Hgb 15.3 g/dL (11.7-16.6) 10/29/22 10:35 Hct 45.1 % (42.0-52.0) 10/29/22 10:35 MCV 88.8 fl (80-94) 10/29/22 10:35 MCH 30.1 pg (28.0-34.0) 10/29/22 10:35 MCHC 33.9 g/dL (30.0-36.0) 10/29/22 10:35 RDW 12.3 % (12.1-15.1) 10/29/22 10:35 Plt Count 232 10^3/cmm (130-400) 10/29/22 10:35 MPV 11.1 fL (7.4-10.4) H 10/29/22 10:35 Neut % (Auto) 74.1 % 10/29/22 10:35 Lymph % (Auto) 17.6 % 10/29/22 10:35 [place] % (Auto) 6.9 % 10/29/22 10:35 Eos % (Auto) 0.6 % 10/29/22 10:35 Baso % (Auto) 0.5 % 10/29/22 10:35 Neut # (Auto) 5.71 10^3/uL (1.8-7.7) 10/29/22 10:35 Lymph # (Auto) 1.4 10^3/uL (0.8-4.8) 10/29/22 10:35 [place] # (Auto) 0.5 10^3/uL (0.2-0.9) 10/29/22 10:35 Eos # (Auto) 0.1 10^3/uL (0.0-0.8) 10/29/22 10:35 Baso # (Auto) 0.0 10^3/uL (0.0-0.1) 10/29/22 10:35 Nucleated RBC % (auto) 0 % 10/29/22 10:35 Nucleated RBCs # 0.0 /100WBC 10/29/22 10:35 Sodium 138 mmol/L (136-145) 10/29/22 10:35 Potassium 3.8 mmol/L (3.5-5.1) 10/29/22 10:35 Chloride 101 mmol/L (98-107) 10/29/22 10:35 Carbon Dioxide 25 mmol/L (22-29) 10/29/22 10:35 Anion Gap 15.8 (5-19) 10/29/22 10:35 BUN 7 mg/dL (8-23) L 10/29/22 10:35 Creatinine 0.8 mg/dL (0.7-1.2) 10/29/22 10:35 GFR Calculation 97.0 mL/min (90-130) 10/29/22 10:35 Glucose 109 mg/dL (65-115) 10/29/22 10:35 Calculated Osmolality 285 mOsm/kg (285-295) 10/29/22 10:35 Calcium 9.7 mg/dL (8.5-10.5) 10/29/22 10:35 Total Bilirubin 0.6 mg/dL (0.15-1.2) 10/29/22 10:35 AST 21 U/L (0-40) 10/29/22 10:35 ALT 30 U/L (0-41) 10/29/22 10:35 Alkaline Phosphatase 71 U/L (40-130) 10/29/22 10:35 Total Protein 7.3 g/dL (6.6-8.7) 10/29/22 10:35 Albumin 4.5 g/dL (3.5-5.2) 10/29/22 10:35 Globulin 2.8 g/dL (1.3-4.6) 10/29/22 10:35 Urine Color Yellow (Yellow) 10/29/22 10:00 Urine Appearance Clear (CLEAR) 10/29/22 10:00 Urine pH 7 (5-7) 10/29/22 10:00 Ur Specific [place] 1.015 (1.005-1.030) 10/29/22 10:00 Urine Protein Neg (Negative) 10/29/22 10:00 Urine Glucose (UA) Norm (Normal) 10/29/22 10:00 Urine Ketones Negative (Negative) 10/29/22 10:00 Urine Blood Neg (Negative) 10/29/22 10:00 Urine Nitrate Negative (Negative) 10/29/22 10:00 Urine Bilirubin Neg (Negative) 10/29/22 10:00 Urine Urobilinogen Neg mg/dL (Negative) 10/29/22 10:00 Ur Leukocyte Esterase Negative (Negative) 10/29/22 10:00 Discharge Plan Discharge Patient Disposition: Home Clinical Impression: Dizziness, History of fracture of skull Condition: Stable Prescriptions: New Ativan 2 mg tablet 2 mg PO TID PRN (Reason: dizziness) Qty: 10 0RF No Action finasteride 5 mg tablet 5 mg PO DAILY tamsulosin 0.4 mg capsule 0.4 mg PO QPM meclizine 25 mg tablet 25 mg PO TID PRN (Reason: Nausea) aspirin [Adult Aspirin Regimen] 81 mg tablet,delayed release (DR/EC) 81 mg PO DAILY atorvastatin 10 mg tablet 10 mg PO QPM diclofenac sodium [Arthritis Pain (diclofenac)] 1 % gel 2 g topical QID Rx Instructions: apply to single elbow, wrist or hand; for hand includes palm/fingers/back of hand loratadine 10 mg tablet 10 mg PO DAILY memantine 5 mg tablet 5 mg PO BID Qty: 60 5RF metoprolol tartrate 25 mg tablet 25 mg PO BID Qty: 180 3RF magnesium L-lactate [Magtab] 84 mg tablet extended release 84 mg PO BID Qty: 180 3RF Rx Instructions: for PVC's lisinopril 20 mg Tablet 10 mg PO DAILY Fish Oil 300-1,000 mg Capsule 1 cap PO BID Discharge Orders: Discharge ED (Routine); Ordered 10/29/22 Ordered By: Yariel Foley Referrals: Kristie Vasquez MD [Primary Care Provider] - Discharge Diet: Usual diet Discharge Activity: Increase activity as tolerated Activity Restrictions/Additional Instructions: You were seen today for dizziness related to your skull fracture. Since this is a longstanding problem would recommend that you follow-up with neurology or primary care. We will give you Ativan to use as needed in the meantime. Coding Level of Care Code ED Satellite Tv Technician for Cierra Mao
[2022-10-29 11:17] LABS: Alanine Aminotransferase 30 U/L (0-41); Albumin Level 4.5 g/dL (3.5-5.2); Alkaline Phosphatase 71 U/L (40-130); Aspartate Amino Transferase 21 U/L (0-40); Blood Urea Nitrogen 7 mg/dL (8-23); Calcium 9.7 mg/dL (8.5-10.5); Carbon Dioxide 25 mmol/L (22-29); Chloride 101 mmol/L (98-107); Creatinine Clr Calc Pharmacy 99.5557; Globulin 2.8 g/dL (1.3-4.6); Glucose 109 mg/dL (65-115); Osmolality Calculated 285 mOsm/kg (285-295); Sodium 138 mmol/L (136-145); Total Bilirubin 0.6 mg/dL (0.15-1.2); Total Protein 7.3 g/dL (6.6-8.7)
[2022-10-29 11:26] LABS: Anion Gap 15.8 (5-19); Potassium 3.8 mmol/L (3.5-5.1)
[2022-10-29 11:35] VITALS: BP 153/93; PULSE 70; O2SAT 95
[2022-10-29 12:48] VITALS: BP 153/93; PULSE 70; RESP 16; O2SAT 95
== END 2022-10-29 12:49 | disposition home or self-care (01) ==
PROVIDERS: Emergency Provider Family Medicine; PCP Family Medicine
DX: R55 Syncope and collapse (principal); Z79.82 Long term (current) use of aspirin; I10 Essential (primary) hypertension
CPT/HCPCS: 70450; 80053; 81003; 85025; 93005; 99285

== ENCOUNTER → 2022-11-24 08:33 | Outpatient (BNVA) | payer OTHER, SELFPAY | PROVIDERS: PCP Family Medicine; Visit Provider Specialist | DX: G30.9 Alzheimer's disease, unspecified (principal); F02.80 Dementia in other diseases classified elsewhere, unspecified severity, without behavioral disturbance, psychotic disturbance, mood disturbance, and anxiety; H81.10 Benign paroxysmal vertigo, unspecified ear | CPT/HCPCS: 96116; 99214 ==

== ENCOUNTER 2022-12-13 12:09 | Outpatient (CLI) | payer OTHER, SELFPAY ==
[2022-12-13 13:34] LABS: Prostate Specific AG Urology 4.67 ng/mL (0-4)
== END 2022-12-13 12:10 | disposition home or self-care (01) ==
LOC: LAB 12:11
PROVIDERS: PCP Family Medicine; Visit Provider Urology
DX: R97.20 Elevated prostate specific antigen [PSA] (principal)
CPT/HCPCS: 84153

== ENCOUNTER → 2023-02-08 13:31 | Outpatient (BNVA) | payer OTHER, SELFPAY | PROVIDERS: PCP Family Medicine; Visit Provider Internal Medicine Cardiovascular Disease | DX: R07.89 Other chest pain (principal); R94.31 Abnormal electrocardiogram [ECG] [EKG]; E78.5 Hyperlipidemia, unspecified; I10 Essential (primary) hypertension; R00.2 Palpitations; I49.8 Other specified cardiac arrhythmias; Z79.82 Long term (current) use of aspirin | CPT/HCPCS: 99213; 99214 ==

== ENCOUNTER → 2023-02-23 09:39 | Outpatient (BNVA) | payer OTHER, SELFPAY | PROVIDERS: PCP Family Medicine; Visit Provider Specialist | DX: G30.9 Alzheimer's disease, unspecified (principal); F02.C0 Dementia in other diseases classified elsewhere, severe, without behavioral disturbance, psychotic disturbance, mood disturbance, and anxiety | CPT/HCPCS: 99213 ==

== ENCOUNTER → 2023-08-18 09:20 | Outpatient (BNVA) | payer OTHER, SELFPAY | PROVIDERS: Visit Provider Podiatrist Foot & Ankle Surgery | DX: L84 Corns and callosities (principal); L97.522 Non-pressure chronic ulcer of other part of left foot with fat layer exposed; B35.3 Tinea pedis | CPT/HCPCS: 99203 ==

== ENCOUNTER → 2023-08-30 13:28 | Outpatient (BNVA) | payer OTHER, SELFPAY | PROVIDERS: Visit Provider Internal Medicine Cardiovascular Disease | DX: R07.89 Other chest pain (principal); I49.8 Other specified cardiac arrhythmias; I10 Essential (primary) hypertension; E78.5 Hyperlipidemia, unspecified; G30.9 Alzheimer's disease, unspecified; F02.80 Dementia in other diseases classified elsewhere, unspecified severity, without behavioral disturbance, psychotic disturbance, mood disturbance, and anxiety | CPT/HCPCS: 99214 ==

== ENCOUNTER → 2023-09-08 08:39 | Outpatient (BNVA) | payer OTHER, SELFPAY | PROVIDERS: Visit Provider Podiatrist Foot & Ankle Surgery | DX: Z51.89 Encounter for other specified aftercare (principal); L97.522 Non-pressure chronic ulcer of other part of left foot with fat layer exposed; L84 Corns and callosities; B35.3 Tinea pedis | CPT/HCPCS: 99213 ==

== ENCOUNTER 2023-09-13 11:06 | Emergency (ER) | payer OTHER, SELFPAY ==
[2023-09-13 11:15] VITALS: BP 168/80; PULSE 68; RESP 16; TEMP 36.7; O2SAT 98; BMI 25.8
[2023-09-13 11:35] VITALS: BP 160/92; PULSE 62; O2SAT 97
--- NOTE | 2023-09-13 11:54 | ECG_ITS ---
[facility] Test Date: 2023-09-13 Pat Name: Josué Jara Department: Room: Gender: Male Automated Process Operator: : 1955 Requested By: Nandini Hendrix Order Number: [id number] Kelly MD: Myra Escobar M.D. Measurements Intervals [place] Rate: 58 P: 57 OR: 173 QRS: 61 QRSD: 102 T: 64 QT: 445 QTc: 437 Interpretive Statements SINUS BRADYCARDIA otherwise normal Compared to ECG 10/29/2022 10:02:03 No significant change Electronically Signed On 09-13-2023 14:24:04 CASINO CAGE CASHIER by Myra Escobar M.D. [id number]
--- NOTE | 2023-09-13 11:58 | W.ED.GENADLT ---
HPI - General Adult General: Chief complaint: Dizziness Stated complaint: full body tingling/thinks heart attack Time Seen by Provider: 09/13/23 11:09 Source: patient Mode of arrival: ambulatory Limitations: no limitations History of Present Illness: Patient is a 68-year-old male who presents to ED today along with his significant other with a complaint of humming all over. When asked to elaborate he states he feels tingly all over. Symptoms started a few hours after he awoke this morning around 3AM. He is concerned he could be having a heart attack. Denies chest pain, SOB, difficulty breathing. Patient has a history of TIA/CVA and TBI x 2. Tells me he has Alzheimer's. Patient is an extremely poor historian-significant other is not much better.?He has chronic vertigo. He was ambulatory back to his room without difficulty or assistance. Onset (ago): hour(s) Relieving factors: none Exacerbating factors: none Associated symptoms: Reports no associated symptoms and confusion (chronic-history of Alzheimer's); Deny chest pain, dyspnea, headache(s), malaise, nausea, rash, palpitations, syncope or vomiting Treatments prior to arrival: none Review of Systems Const: Denies: fever(s), chills, body aches, fatigue or malaise Eyes: Denies: change in vision, blurry vision, photophobia, floaters or seeing flashes ENMT: Denies: throat pain, odynophagia, ear or mastoid pain, nasal discharge, nasal congestion, post nasal drip or sinus pain Card: Denies: chest pain, palpitations, irregular heart rhythm, edema, swelling of feet/ankles, lightheadedness, syncope, pre-syncope, dyspnea on exertion, orthopnea, leg pain with exertion or acrocyanosis Resp: Denies: dyspnea, productive cough, non-productive cough, wheezing, pain on inspiration, change in phlegm color, hemoptysis or chest congestion GI: Denies: abdominal pain, nausea, vomiting or diarrhea : Denies: flank pain, difficulty urinating, dysuria, urinary frequency, urinary urgency or urinary hesitancy Musc: Reports: joint pain (chronic bilateral shoulder pain); Denies: neck pain, back pain, extremity pain, extremity swelling, joint swelling, joint redness or joint warmth Skin/Breast: Denies: rash Neuro: Reports: vertigo (chronic x 5 years) and confusion (chronic-history of Alzheimer's); Denies: headache(s), numbness in extremities, weakness in extremities, sensory changes, difficulty walking, frequent falls, seizure-like activity or involuntary movements PFSH ED PFSH: Medical History Benign prostatic hyperplasia without lower urinary tract symptoms Cardiac arrhythmia, unspecified Elevated PSA Mildly elevated PSA with negative TRUS/biopsy in 2010. Large benign feeling AIDE. Essential (primary) hypertension Surgical History History of ankle surgery History of surgery on arm Family History Father , AT AGE 67 Cancer Mother , AT AGE 72 No problems noted. Denies family history of Diabetes CAD (coronary artery disease) Clotting disorder Dementia Chronic kidney disease (CKD) Suicide Anesthesia complication Bleeding disorder Lung disease Stroke Social History Smoking and tobacco/nicotine status: never used tobacco/nicotine Alcohol intake: never Substance/Drug Use: never Marital status: / Current occupational status: retired Physical Exam Const: COMMON NORMALS: no acute distress, average body habitus, patient oriented x3, no limitations, alert and well nourished GENERAL APPEARANCE: cooperative ORIENTATION/CONSCIOUSNESS: Yes awake and Yes oriented to person OTHER: he is alert to his name and , he can tell me the make/model (Samantha Alas) that his significant other is in waiting in the parking lot, he knows the president and refers to him as little Angel ; he does not know today's date but tells me he hasn't known the date in years; he knows he is at a hospital HENMT: COMMON NORMALS: normocephalic, atraumatic, hearing grossly normal bilaterally, external ears normal and Normal external nose present HEAD & SCALP: normal to inspection, normocephalic and atraumatic FACE & SINUS: face symmetric and other (slight drooping R corner mouth when speaking but can smile symmetrically) NOSE: Normal external nose present EXTERNAL EAR: Yes external ears normal MOUTH: Normal oral and palatal mucosa present, lip normal, tongue normal (anatomically large tongue-no trouble swallowing/breathing) and other (mild stuttering to speech that patient/significant other states is normal); no drooling TEETH & GINGIVA: Yes edentulous THROAT: posterior oropharynx normal Eye: COMMON NORMALS: Equal, round and reactive pupils present and EOMs intact bilaterally GENERAL EYE: appearance normal, both eyes and all related structures and normal light reflex PUPIL: Yes Equal, round and reactive pupils present DIRECT OPHTHALMOSCOPY: Yes normal light reflex Neck/C-Spine: COMMON NORMALS: full ROM, no lymphadenopathy, supple and no meningeal signs Chest: COMMONS NORMALS: normal inspection of the chest Resp: COMMON NORMALS: normal respiratory effort and clear to auscultation bilaterally AUSCULTATION: clear to auscultation bilaterally Cardio: COMMON NORMALS: regular rate and regular rhythm RATE: regular rate RHYTHM: regular rhythm GI: COMMON NORMALS: Normal to inspection, nondistended, normoactive bowel sounds present, Soft to palpation, non-tender, No hepatosplenomegaly present and no masses PALPATION: Yes Soft to palpation and Yes No hepatosplenomegaly present : COMMON NORMALS: Yes no CVA tenderness BLADDER/KIDNEY EXAM: Yes no CVA tenderness Back/Pelvis: COMMON NORMALS: no CVA tenderness and thoracic and lumbar spine normal to inspection Extremity: COMMON NORMALS: normal to inspection GENERAL: Yes normal exam except as noted Neuro: HINA COMA SCALE: document GCS findings Hina coma scale eye opening: Spontaneous [place] coma scale verbal response: Orientated [place] coma scale motor response: Obey commands [place] coma scale total score: 15 COMMON NORMALS: patient oriented x3, CN's II-XII intact bilaterally, moves all extremities, no focal motor deficits, no sensory deficits noted and gait normal SENSORIUM/ORIENTATION: Yes alert and Yes oriented to person MENINGEAL SIGNS: Yes no meningeal signs COORDINATION/BALANCE: [id number] test normal SPEECH: Other neuro speech findings (see below) GAIT: Yes Normal gait present SENSORY EXAM: Yes other (reporting normal sensation throughout face/extremities) MOTOR EXAM: 5/5 motor strength present throughout COORDINATION: [id number] test normal OTHER: Patient has mild stuttering and occasional mild trouble with word finding-he and significant other states this has slowly worsened over the past few years; previous documentation does report history of trouble with word finding Skin: COMMON NORMALS: no rashes or lesions noted GENERAL SKIN EXAM: no rashes or lesions noted Course Vital Signs: Vital signs: Vital Signs Temperature 98.0 F 09/13/23 11:15 Pulse Rate 87 09/13/23 12:55 Respiratory Rate 16 09/13/23 11:15 Blood Pressure 135/85 09/13/23 12:55 Pulse Oximetry 98 09/13/23 12:55 Oxygen Delivery Me thod Room Air 09/13/23 12:33 MDM - General Adult Medical Decision Making Patient is a 68-year-old male who presents to the ED today with a complaint of humming all over . Later describes this as a full body tingling sensation. He states upon arrival to the emergency department symptoms have improved. For what ever reason he was just concerned whether or not he was having a heart attack. He denies chest pain, shortness of breath, difficulty breathing. On exam I do not appreciate any acute/focal neurologic deficits. Mental status is normal per significant other and previous documentation reviewed and this seems about his baseline. He has significant dementia and previous TBIs x 2. His work up today is benign. Initially had ordered a head CT due to concerns for AMS although reviewing previous documentation and speaking to significant other, I feel this is no longer necessary. Patient will be allowed discharge with instructions to follow up with primary care. Return precautions discussed. Lab Data 09/13/23 12:07 09/13/23 12:07 Laboratory Results WBC 9.18 10^3/uL (3.29-11.43) 09/13/23 12:07 RBC 5.47 10^6/uL (3.85-5.65) 09/13/23 12:07 Hgb 16.20 g/dL (11.27-16.99) 09/13/23 12:07 Hct 47.8 % (37-53) 09/13/23 12:07 MCV 87.4 fl (82-101) 09/13/23 12:07 MCH 29.6 pg (27-33) 09/13/23 12:07 MCHC 33.9 g/dL (30-55) 09/13/23 12:07 RDW 12.5 % (12.1-15.1) 09/13/23 12:07 Plt Count 223 10^3/cmm (157-399) 09/13/23 12:07 MPV 11.6 fL (7.4-10.4) H 09/13/23 12:07 Neut % (Auto) 76.0 % 09/13/23 12:07 Lymph % (Auto) 16.6 % 09/13/23 12:07 [place] % (Auto) 5.8 % 09/13/23 12:07 Eos % (Auto) 1.0 % 09/13/23 12:07 Baso % (Auto) 0.4 % 09/13/23 12:07 Neut # (Auto) 6.98 10^3/uL (1.8-7.7) 09/13/23 12:07 Lymph # (Auto) 1.5 10^3/uL (0.8-4.8) 09/13/23 12:07 [place] # (Auto) 0.5 10^3/uL (0.2-0.9) 09/13/23 12:07 Eos # (Auto) 0.1 10^3/uL (0.0-0.8) 09/13/23 12:07 Baso # (Auto) 0.0 10^3/uL (0.0-0.1) 09/13/23 12:07 Nucleated RBC % (auto) 0 % 09/13/23 12:07 Nucleated RBCs # 0.0 /100WBC 09/13/23 12:07 Sodium 141 mmol/L (136-145) 09/13/23 12:07 Potassium 3.8 mmol/L (3.5-5.1) 09/13/23 12:07 Chloride 104 mmol/L (98-107) 09/13/23 12:07 Carbon Dioxide 24 mmol/L (22-29) 09/13/23 12:07 Anion Gap 16.8 (5-19) 09/13/23 12:07 BUN 8 mg/dL (8-23) 09/13/23 12:07 Creatinine 1.1 mg/dL (0.7-1.2) 09/13/23 12:07 GFR Calculation 67.0 mL/min (90-130) L 09/13/23 12:07 Glucose 111 mg/dL (65-115) 09/13/23 12:07 Calculated Osmolality 291 mOsm/kg (285-295) 09/13/23 12:07 Calcium 9.6 mg/dL (8.5-10.5) 09/13/23 12:07 Total Bilirubin 1.4 mg/dL (0.15-1.2) H 09/13/23 12:07 AST 21 U/L (0-40) 09/13/23 12:07 ALT 26 U/L (0-41) 09/13/23 12:07 Alkaline Phosphatase 78 U/L (40-130) 09/13/23 12:07 Troponin T Baseline 13 ng/L (0-15) 09/13/23 12:07 Total Protein 7.2 g/dL (6.6-8.7) 09/13/23 12:07 Albumin 4.7 g/dL (3.5-5.2) 09/13/23 12:07 Globulin 2.5 g/dL (1.3-4.6) 09/13/23 12:07 Urine Color Yellow (Yellow) 09/13/23 11:55 Urine Appearance Clear (CLEAR) 09/13/23 11:55 Urine pH 8 (5-7) H 09/13/23 11:55 Ur Specific [place] 1.010 (1.005-1.030) 09/13/23 11:55 Urine Protein Neg (Negative) 09/13/23 11:55 Urine Glucose (UA) Norm (Normal) 09/13/23 11:55 Urine Ketones Negative (Negative) 09/13/23 11:55 Urine Blood Neg (Negative) 09/13/23 11:55 Urine Nitrate Negative (Negative) 09/13/23 11:55 Urine Bilirubin Neg (Negative) 09/13/23 11:55 Prot Sulfosalicylic Acd Negative (Negative) 09/13/23 11:55 Urine Urobilinogen Norm mg/dL (Negative) 09/13/23 11:55 Ur Leukocyte Esterase Negative (Negative) 09/13/23 11:55 No radiology studies performed this visit Discharge Plan Discharge Patient Disposition: Home Clinical Impression: Tingling sensation Condition: Stable Prescriptions: No Action finasteride 5 mg tablet 5 mg PO DAILY tamsulosin 0.4 mg capsule 0.4 mg PO QPM meclizine 25 mg tablet 25 mg PO TID PRN (Reason: Nausea) prednisone 20 mg tablet 20 mg PO BID 5 Days Qty: 10 0RF cefdinir 300 mg capsule 300 mg PO BID 10 Days Qty: 20 0RF clotrimazole-betamethasone 1-0.05 % cream 1 applic topical BID 28 Days Qty: 45 2RF aspirin [Adult Aspirin Regimen] 81 mg tablet,delayed release (DR/EC) 81 mg PO DAILY atorvastatin 10 mg tablet 10 mg PO QPM diclofenac sodium [Arthritis Pain (diclofenac)] 1 % gel 2 g topical QID Rx Instructions: apply to single elbow, wrist or hand; for hand includes palm/fingers/back of hand loratadine 10 mg tablet 10 mg PO DAILY galantamine 4 mg tablet 4 mg PO BID Qty: 60 3RF Rx Instructions: administer with AM and PM meals; watch for nausea memantine 10 mg tablet 10 mg PO BID Qty: 60 3RF metoprolol tartrate 25 mg tablet 25 mg PO BID Qty: 180 3RF magnesium L-lactate [Magtab] 84 mg tablet extended release 84 mg PO BID Qty: 180 3RF Rx Instructions: for PVC's lisinopril 20 mg Tablet 10 mg PO DAILY Fish Oil 300-1,000 mg Capsule 1 cap PO BID Ativan 2 mg tablet 2 mg PO TID PRN (Reason: dizziness) Qty: 10 0RF Discharge Orders: Discharge ED (Routine); Ordered 09/13/23 Ordered By: Nandini Hendrix Coding Level of Care Code ED [employer] Anchor for Cierra Mao
[2023-09-13 12:08] VITALS: BP 120/88; PULSE 60; O2SAT 94
[2023-09-13 12:16] LABS: Basophils % 0.4 %; Eosinophils # 0.1 10^3/uL (0.0-0.8); Hematocrit 47.8 % (37-53); Lymphocytes # 1.5 10^3/uL (0.8-4.8); Lymphocytes % 16.6 %; Mean Corpuscular HGB Conc 33.9 g/dL (30-55); Mean Corpuscular Hemoglobin 29.6 pg (27-33); Mean Corpuscular Volume 87.4 fl (82-101); Mean Platelet Volume 11.6 fL (7.4-10.4); Monocytes # 0.5 10^3/uL (0.2-0.9); Monocytes % 5.8 %; Neutrophils # 6.98 10^3/uL (1.8-7.7); Nucleated Red Blood Cells % 0 %; Platelet Count 223 10^3/cmm (157-399); Red Blood Count 5.47 10^6/uL (3.85-5.65); Red Cell Distribution Width 12.5 % (12.1-15.1); White Blood Count 9.18 10^3/uL (3.29-11.43)
[2023-09-13 12:17] LABS: Add Urine Microscopic? NO; Charge for UA Resulting for Rev
[2023-09-13 12:30] LABS: Bilirubin Urine Neg (Negative); Blood Urine Neg (Negative); Glucose Urine UA Norm (Normal); Ketones Urine Negative (Negative); Leukocyte Esterase Urine Negative (Negative); Nitrate Urine Negative (Negative); Protein Urine Neg (Negative); Sulfosalicylic Acid Urine Negative (Negative); Urine Appearance Clear (CLEAR); Urine Color Yellow (Yellow); Urobilinogen Urine Norm (Negative); pH Urine 8 (5-7)
[2023-09-13 12:32] LABS: Troponin(5th) Baseline 13 ng/L (0-15)
[2023-09-13 12:33] VITALS: BP 135/85; O2SAT 93
[2023-09-13 12:36] LABS: Alanine Aminotransferase 26 U/L (0-41); Albumin Level 4.7 g/dL (3.5-5.2); Alkaline Phosphatase 78 U/L (40-130); Anion Gap 16.8 (5-19); Aspartate Amino Transferase 21 U/L (0-40); Blood Urea Nitrogen 8 mg/dL (8-23); Calcium 9.6 mg/dL (8.5-10.5); Carbon Dioxide 24 mmol/L (22-29); Chloride 104 mmol/L (98-107); Globulin 2.5 g/dL (1.3-4.6); Glucose 111 mg/dL (65-115); Osmolality Calculated 291 mOsm/kg (285-295); Potassium 3.8 mmol/L (3.5-5.1); Sodium 141 mmol/L (136-145); Total Bilirubin 1.4 mg/dL (0.15-1.2); Total Protein 7.2 g/dL (6.6-8.7)
[2023-09-13 12:55] VITALS: BP 135/85; PULSE 87; O2SAT 98
== END 2023-09-13 12:57 | disposition home or self-care (01) ==
PROVIDERS: Emergency Provider Physician Assistant
DX: R20.2 Paresthesia of skin (principal); Z79.82 Long term (current) use of aspirin; I10 Essential (primary) hypertension
CPT/HCPCS: 80053; 81003; 84484; 85025; 93005; 93010; 99285

== ENCOUNTER 2023-09-22 15:57 | Emergency (ER) | payer OTHER, SELFPAY ==
[2023-09-22 16:08] VITALS: BP 136/91; PULSE 83; RESP 17; O2SAT 97
--- NOTE | 2023-09-22 16:08 | W.ED.GENADLT ---
Documented by User: Yariel Foley DO 09/23/23 06:37 HPI - General Adult General: Chief complaint: Animal Bite Stated complaint: animal bites on arms Time Seen by Provider: 09/22/23 16:08 Source: patient Mode of arrival: ambulatory History of Present Illness: 68-year-old male presents emergency room after being attacked by family pet. He was in his home and his grand centimeters recently moved and has a large dog patient reports he walked past the dog and the dog began to bite him he has several lacerations on his upper extremities he is unsure of his last tetanus. Onset (ago): minute(s) Location: left, right and upper extremity Associated symptoms: Deny chest pain, dyspnea or rash Review of Systems Const: Denies: fever(s) or chills Card: Denies: chest pain Resp: Denies: dyspnea GI: Denies: abdominal pain : Denies: dysuria, urinary frequency or urinary urgency Musc: Reports: extremity pain; Denies: neck pain or back pain Skin/Breast: Denies: rash PFSH ED PFSH: Medical History Essential (primary) hypertension Cardiac arrhythmia, unspecified Benign prostatic hyperplasia without lower urinary tract symptoms Elevated PSA Mildly elevated PSA with negative TRUS/biopsy in 2010. Large benign feeling AIDE. Surgical History History of ankle surgery History of surgery on arm Family History Father , AT AGE 67 Cancer Mother , AT AGE 72 No problems noted. Denies family history of Diabetes CAD (coronary artery disease) Clotting disorder Dementia Chronic kidney disease (CKD) Suicide Anesthesia complication Bleeding disorder Lung disease Stroke Social History Smoking and tobacco/nicotine status: never used tobacco/nicotine Alcohol intake: never Substance/Drug Use: never Marital status: / Current occupational status: retired Physical Exam Const: GENERAL APPEARANCE: cooperative ORIENTATION/CONSCIOUSNESS: Yes awake, Yes oriented to person, Yes oriented to place and Yes oriented to time HENMT: COMMON NORMALS: normocephalic, atraumatic and hearing grossly normal bilaterally HEAD & SCALP: normocephalic and atraumatic Resp: COMMON NORMALS: normal respiratory effort, No retractions, No use of accessory muscles and clear to auscultation bilaterally AUSCULTATION: clear to auscultation bilaterally Cardio: COMMON NORMALS: regular rate, regular rhythm and No murmurs present (Cardio) RATE: regular rate RHYTHM: regular rhythm Extremity: OTHER: Multiple bites and abrasion in the upper extremities lacerations to the left palm over the hyperthenar eminence laterally about 2-1/2 inches this is gaping. There are also lacerations that are open on the dorsal surface of left forearm. multiple puncture wounds that are not gaping or bleeding at this time. Neuro: SENSORIUM/ORIENTATION: Yes oriented to person, Yes oriented to place and Yes oriented to time Skin: COMMON NORMALS: no rashes or lesions noted GENERAL SKIN EXAM: no rashes or lesions noted Course Vital Signs: Vital signs: Vital Signs Pulse Rate 83 09/22/23 16:08 Respiratory Rate 17 09/22/23 16:08 Blood Pressure 136/91 09/22/23 16:08 Pulse Oximetry 97 09/22/23 16:08 Oxygen Delivery Me thod Room Air 09/22/23 16:08 MDM - General Adult Medical Decision Making X-ray left hand does not show any fractures remainder of the upper extremities patient has full range of motion and function without any deficits neurovascularly is intact. Wounds closed with local anesthesia by Jude Cavazos. Wound care instructions given discharged home on Augmentin 875 twice daily. Apply mupirocin topically to the wounds. Nursing staff to make report to [facility] department patient will follow-up with them when he returns home. Sutures to be removed in 7 to 10 days. Medical Records I reviewed the patient's medical records. Lab Data Radiology Impressions Hand X-Ray 09/22/23 16:36 IMPRESSION: No acute findings. All radiology interpretation(s) finalized by discharge Discharge Plan Discharge Patient Disposition: Home Clinical Impression: Dog bite, Laceration Condition: Stable Prescriptions: New hydrocodone-acetaminophen 5-325 mg tablet 1 tab PO Q6H PRN (Reason: pain) Qty: 5 0RF amoxicillin-pot clavulanate 875-125 mg tablet 1 tab PO BID Qty: 14 0RF mupirocin 2 % ointment 1 applic topical DAILY Qty: 22 0RF No Action finasteride 5 mg tablet 5 mg PO DAILY tamsulosin 0.4 mg capsule 0.4 mg PO QPM meclizine 25 mg tablet 25 mg PO TID PRN (Reason: Nausea) prednisone 20 mg tablet 20 mg PO BID 5 Days Qty: 10 0RF cefdinir 300 mg capsule 300 mg PO BID 10 Days Qty: 20 0RF clotrimazole-betamethasone 1-0.05 % cream 1 applic topical BID 28 Days Qty: 45 2RF aspirin [Adult Aspirin Regimen] 81 mg tablet,delayed release (DR/EC) 81 mg PO DAILY atorvastatin 10 mg tablet 10 mg PO QPM diclofenac sodium [Arthritis Pain (diclofenac)] 1 % gel 2 g topical QID Rx Instructions: apply to single elbow, wrist or hand; for hand includes palm/fingers/back of hand loratadine 10 mg tablet 10 mg PO DAILY galantamine 4 mg tablet 4 mg PO BID Qty: 60 3RF Rx Instructions: administer with AM and PM meals; watch for nausea memantine 10 mg tablet 10 mg PO BID Qty: 60 3RF metoprolol tartrate 25 mg tablet 25 mg PO BID Qty: 180 3RF magnesium L-lactate [Magtab] 84 mg tablet extended release 84 mg PO BID Qty: 180 3RF Rx Instructions: for PVC's lisinopril 20 mg Tablet 10 mg PO DAILY Fish Oil 300-1,000 mg Capsule 1 cap PO BID Ativan 2 mg tablet 2 mg PO TID PRN (Reason: dizziness) Qty: 10 0RF Discharge Orders: Discharge ED (Routine); Ordered 09/22/23 Ordered By: Yariel Foley Referrals: Sofia Gold MD [Primary Care Provider] - Patient Instructions: Animal Bite (ED), Laceration (ED), Opioid Safety, Pain Management Activity Restrictions/Additional Instructions: Thank you for choosing [facility] for your healthcare needs today. Please realize this is an emergency room and that we are providing you with a medical screening exam and this may not be complete and all inclusive of all the testing and or work up that you may need to determine your ailment or severity of your illness. It is very important that you follow up as instructed or that you return to the Emergency Department should you have concerns or if your condition changes or worsens in any way. You should have your sutures removed in 10 days Coding Level of Care Code ED Butadiene Convertor Operator for Chg Fwd Documented by User: KEYANA Peace 09/22/23 17:32 HPI - General Adult General: Chief complaint: Animal Bite Stated complaint: animal bites on arms Time Seen by Provider: 09/22/23 16:08 PFSH ED PFSH: Medical History Essential (primary) hypertension Cardiac arrhythmia, unspecified Benign prostatic hyperplasia without lower urinary tract symptoms Elevated PSA Mildly elevated PSA with negative TRUS/biopsy in 2010. Large benign feeling AIDE. Surgical History History of ankle surgery History of surgery on arm Family History Father , AT AGE 67 Cancer Mother , AT AGE 72 No problems noted. Denies family history of Diabetes CAD (coronary artery disease) Clotting disorder Dementia Chronic kidney disease (CKD) Suicide Anesthesia complication Bleeding disorder Lung disease Stroke Social History Smoking and tobacco/nicotine status: never used tobacco/nicotine Alcohol intake: never Substance/Drug Use: never Marital status: / Current occupational status: retired Procedures Laceration Laceration 1: Site: upper extremity Side (If applicable): right Size (cm): 1 Description: linear Depth: simple, single layer Local Anesthetic: lidocaine 1% Amount of anesthesia used (mL): 1 Pre-repair: wound explored and irrigated extensively Skin layer closed with: nylon Size (cm): 3-0 Number of sutures: 1 Technique: horizontal mattress Laceration 2: Site: upper extremity Side (If applicable): right Size (cm): 2 Description: linear Depth: simple, single layer Local Anesthetic: lidocaine 1% Amount of anesthesia used (mL): 2 Pre-repair: wound explored and irrigated extensively Skin layer closed with: nylon Size (cm): 3-0 Number of sutures: 1 Technique: horizontal mattress Laceration 3: Site: hand Side (If applicable): left Size (cm): 2 Description: linear Depth: simple, single layer Local Anesthetic: lidocaine 2% Amount of anesthesia used (mL): 2 Pre-repair: wound explored and irrigated extensively Skin layer closed with: nylon Size (cm): 3-0 Number of sutures: 3 Technique: simple, interrupted Laceration 4: Site: hand Side (If applicable): left Size (cm): 4 Description: linear Depth: simple, single layer Local Anesthetic: lidocaine 2% Amount of anesthesia used (mL): 5 Pre-repair: wound explored and irrigated extensively Skin layer closed with: nylon Size (cm): 3-0 Number of sutures: 8 Course ED course: 1729, patient was involved in dog attack had several lacerations and injuries to the bilateral forearms and hands. 2 gaping lacerations were noted to the right forearm that were closed with mattress sutures after irrigation and probing for foreign body. 1 laceration to the lateral index finger base I was approximately 2 cm was closed with 3 interrupted sutures after thorough irrigation and evaluation for foreign body and fracture. 1 palmar laceration to the left hand that was approximately 4 cm was thoroughly irrigated and probed for foreign body and other injuries was closed with 8 simple interrupted sutures. Kip Cavazos, TERMINAL WORKER?BC. Vital Signs: Vital signs: Vital Signs Pulse Rate 83 09/22/23 16:08 Respiratory Rate 17 09/22/23 16:08 Blood Pressure 136/91 09/22/23 16:08 Pulse Oximetry 97 09/22/23 16:08 Oxygen Delivery Me thod Room Air 09/22/23 16:08 [facility] - General Adult Lab Data Radiology Impressions Hand X-Ray 09/22/23 16:36 IMPRESSION: No acute findings. Discharge Plan Discharge Patient Disposition: Home Clinical Impression: Dog bite, Laceration Condition: Stable Prescriptions: New hydrocodone-acetaminophen 5-325 mg tablet 1 tab PO Q6H PRN (Reason: pain) Qty: 5 0RF amoxicillin-pot clavulanate 875-125 mg tablet 1 tab PO BID Qty: 14 0RF mupirocin 2 % ointment 1 applic topical DAILY Qty: 22 0RF No Action finasteride 5 mg tablet 5 mg PO DAILY tamsulosin 0.4 mg capsule 0.4 mg PO QPM meclizine 25 mg tablet 25 mg PO TID PRN (Reason: Nausea) prednisone 20 mg tablet 20 mg PO BID 5 Days Qty: 10 0RF cefdinir 300 mg capsule 300 mg PO BID 10 Days Qty: 20 0RF clotrimazole-betamethasone 1-0.05 % cream 1 applic topical BID 28 Days Qty: 45 2RF aspirin [Adult Aspirin Regimen] 81 mg tablet,delayed release (DR/EC) 81 mg PO DAILY atorvastatin 10 mg tablet 10 mg PO QPM diclofenac sodium [Arthritis Pain (diclofenac)] 1 % gel 2 g topical QID Rx Instructions: apply to single elbow, wrist or hand; for hand includes palm/fingers/back of hand loratadine 10 mg tablet 10 mg PO DAILY galantamine 4 mg tablet 4 mg PO BID Qty: 60 3RF Rx Instructions: administer with AM and PM meals; watch for nausea memantine 10 mg tablet 10 mg PO BID Qty: 60 3RF metoprolol tartrate 25 mg tablet 25 mg PO BID Qty: 180 3RF magnesium L-lactate [Magtab] 84 mg tablet extended release 84 mg PO BID Qty: 180 3RF Rx Instructions: for PVC's lisinopril 20 mg Tablet 10 mg PO DAILY Fish Oil 300-1,000 mg Capsule 1 cap PO BID Ativan 2 mg tablet 2 mg PO TID PRN (Reason: dizziness) Qty: 10 0RF Discharge Orders: Discharge ED (Routine); Ordered 09/22/23 Ordered By: Yariel Foley Referrals: Sofia Gold MD [Primary Care Provider] - Patient Instructions: Animal Bite (ED), Laceration (ED), Opioid Safety, Pain Management Activity Restrictions/Additional Instructions: Thank you for choosing [facility] for your healthcare needs today. Please realize this is an emergency room and that we are providing you with a medical screening exam and this may not be complete and all inclusive of all the testing and or work up that you may need to determine your ailment or severity of your illness. It is very important that you follow up as instructed or that you return to the Emergency Department should you have concerns or if your condition changes or worsens in any way. You should have your sutures removed in 10 days Coding Level of Care Code ED Butadiene Convertor Operator for Cierra Mao
--- NOTE | 2023-09-22 16:36 | XRR_ITS ---
PROCEDURE INFORMATION: Exam: XR Left Hand Exam date and time: 09/22/2023 5:09 PM Age: 68 years old Clinical indication: Injury or trauma; Bite; Hand; Left TECHNIQUE: Imaging protocol: Radiologic exam of the left hand. Views: 3 or more views. COMPARISON: No relevant prior studies available. FINDINGS: Bones/joints: There are no acute fractures or dislocations. Patient is status post plate and screw of a distal radius fracture. Soft tissues: There is no radiopaque foreign body noted. There is degenerative disease.. XR/XR hand LT min 3V* [id number] IMPRESSION: No acute findings.
[2023-09-22] MEDS: tetanus-dipt-pertussis 0.5 mL SDV IM (16:58)
[2023-09-22] MEDS: ceFAZolin 1,000 mg SDV 1000 MG IVP (17:01)
[2023-09-22] MEDS: ketorolac 30 mg/mL INJ IVP (17:01)
[2023-09-22] MEDS: lidocaine 1% INJ 10 mL (per mL) 20 ML IM (17:02)
== END 2023-09-22 17:38 | disposition home or self-care (01) ==
PROVIDERS: Emergency Provider Family Medicine; PCP Specialist
DX: S61.452A Open bite of left hand, initial encounter (principal); S51.852A Open bite of left forearm, initial encounter; W54.0XXA Bitten by dog, initial encounter; I10 Essential (primary) hypertension; Z23 Encounter for immunization
CPT/HCPCS: 73130; 90471; 90715; 96374; 96375; 99284; J0690; J1885

== ENCOUNTER 2023-10-13 08:00 | Oncology outpatient (recurring) (ONCR) | payer MEDICARE, SELFPAY ==
[2023-09-29] MEDS: rabies vaccine 2.5 unit SDV IM (14:12)
[2023-10-03] MEDS: rabies vaccine 2.5 unit SDV IM (08:25)
[2023-10-06 07:59] VITALS: BP 121/74; PULSE 56; RESP 16; TEMP 36.4; O2SAT 98
[2023-10-06] MEDS: rabies vaccine 2.5 unit SDV IM (08:16)
[2023-10-13 08:17] VITALS: BP 140/73; PULSE 36; RESP 18; TEMP 36.5
--- NOTE | 2023-10-13 08:38 | PC.NURSE ---
patient to oncology for last rabies vaccine. patient vitals taken and heart rate noted to be 36 upon auscultation. patient denies shortness of breath, only reporting weakness. patient unsure of home medications, denies chest pain. patient taken to ER by this RN and Nicolas Lafleur RN via wheelchair for evaluation.
[2023-10-13 08:41] VITALS: PULSE 36; O2SAT 99
== END 2023-10-23 23:59 | disposition home or self-care (01) ==
PROVIDERS: PCP Specialist; Visit Provider Family Medicine
DX: Z53.9 Procedure and treatment not carried out, unspecified reason
CPT/HCPCS: 90375; 90471; 90675

== ENCOUNTER 2023-10-13 08:32 | Emergency (ER) | payer OTHER, SELFPAY ==
--- NOTE | 2023-10-13 08:37 | ECG_ITS ---
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 Measurements Intervals [place] Rate: 82 P: 62 MN: 162 QRS: 65 QRSD: 99 T: 63 QT: 399 QTc: 467 Interpretive Statements SINUS RHYTHM WITH FREQUENT VENTRICULAR PREMATURE COMPLEXES IN A BIGEMINAL PATTERN ABNORMAL RHYTHM ECG Compared to ECG 09/13/2023 11:54:41 Ventricular premature complex(es) now present Sinus bradycardia no longer present Electronically Signed On 10-14-2023 19:16:12 DIESEL SCOOP OPERATOR by Mary Vick M.D. [id number] f
[2023-10-13 08:39] VITALS: BP 140/9; PULSE 76; RESP 16; TEMP 36.5; O2SAT 99; BMI 24.3
--- NOTE | 2023-10-13 08:48 | ED_ITS ---
HPI - Arrhythmia/Palpitations 2 General: Chief Complaint: Arrhythmia/Palpitations Stated Complaint: low Hr sent from oncology Time Seen by Provider: 10/13/23 08:37 Source: patient Mode of arrival: ambulatory History of Present Illness: 68-year-old male presents emergency room with a AR nurse caregiver. He was directed here from the cancer center here to go there to get his last rabies vaccination and they noted some bradycardia he was otherwise asymptomatic. He is on metoprolol no recent medication changes. He denies being short of breath or having any chest discomfort. He has no fever sweats or chills. He was otherwise asymptomatic at this time he was seen at the cancer center. He feels fine now on states he is anxious because he wants to go home and take care of his dog MD complaint: palpitations Associated symptoms: Reports anxiety; Deny cough, diaphoresis, muscle cramps, nausea, paresthesias, pre-syncope, sense of impending doom, short of breath, syncope or vomiting Review of Systems 2 Const: Denies: fever(s), chills or diaphoresis Card: Denies: chest pain, syncope or pre-syncope Resp: Denies: dyspnea GI: Denies: abdominal pain, nausea or vomiting : Denies: dysuria, urinary frequency or urinary urgency Musc: Denies: neck pain, back pain or muscle cramps Skin/Breast: Denies: rash Psych: Reports: anxiety PFSH ED 2 PFSH: Medical History Essential (primary) hypertension Cardiac arrhythmia, unspecified Benign prostatic hyperplasia without lower urinary tract symptoms Elevated PSA Mildly elevated PSA with negative TRUS/biopsy in 2010. Large benign feeling AIDE. Surgical History History of ankle surgery History of surgery on arm Family History Father , AT AGE 67 Cancer Mother , AT AGE 72 No problems noted. Denies family history of Diabetes CAD (coronary artery disease) Clotting disorder Dementia Chronic kidney disease (CKD) Suicide Anesthesia complication Bleeding disorder Lung disease Stroke Social History Smoking and tobacco/nicotine status: never used tobacco/nicotine Alcohol intake: never Substance/Drug Use: never Marital status: / Current occupational status: retired Physical Exam 2 Const: COMMON NORMALS: no acute distress GENERAL APPEARANCE: cooperative and comfortable ORIENTATION/CONSCIOUSNESS: Yes awake, Yes oriented to person, Yes oriented to place and Yes oriented to time HENMT: COMMON NORMALS: normocephalic, atraumatic and hearing grossly normal bilaterally HEAD & SCALP: normocephalic and atraumatic Resp: COMMON NORMALS: normal respiratory effort, No retractions, No use of accessory muscles and clear to auscultation bilaterally AUSCULTATION: clear to auscultation bilaterally Cardio: COMMON NORMALS: regular rate, regular rhythm and No murmurs present (Cardio) RATE: regular rate RHYTHM: regular rhythm GI: COMMON NORMALS: Soft to palpation and No hepatosplenomegaly present A USCULTATION: Yes normoactive bowel sounds PALPATION: Yes Soft to palpation, No Tenderness to palpation present (GI), No Guarding due to palpation present (GI) and Yes No hepatosplenomegaly present Extremity: COMMON NORMALS: normal to inspection, capillary refill normal, no clubbing, cyanosis or edema, no calf tenderness and no pedal edema Neuro: SENSORIUM/ORIENTATION: Yes oriented to person, Yes oriented to place and Yes oriented to time Skin: COMMON NORMALS: no rashes or lesions noted GENERAL SKIN EXAM: no rashes or lesions noted Course 2 Vital Signs: Vital signs: Vital Signs Temperature 97.7 F 10/13/23 08:39 Pulse Rate 75 10/13/23 10:47 Respiratory Rate 26 H 10/13/23 10:47 Blood Pressure 127/69 10/13/23 10:47 Pulse Oximetry 98 10/13/23 10:47 Oxygen Delivery Me thod Room Air 10/13/23 10:00 MDM - Arrhythmia/Palpitations Medical Decision Making Patient intermittently had just frequent PVCs and for a time had bigeminy that resolved spontaneously he is on metoprolol. Blood pressure was adequate throughout he is asymptomatic. Patient is anxious to leave. Will go and discharge home set him up for 48-hour Holter monitor. Differential Diagnosis Likely palpitations Medical Records I reviewed the patient's medical records. Lab Data I reviewed the patient's lab results. 10/13/23 08:53 10/13/23 08:53 Laboratory Results WBC 8.53 10^3/uL (3.29-11.43) 10/13/23 08:53 RBC 5.08 10^6/uL (3.85-5.65) 10/13/23 08:53 Hgb 15.20 g/dL (11.27-16.99) 10/13/23 08:53 Hct 44.9 % (37-53) 10/13/23 08:53 MCV 88.4 fl (82-101) 10/13/23 08:53 MCH 29.9 pg (27-33) 10/13/23 08:53 MCHC 33.9 g/dL (30-55) 10/13/23 08:53 RDW 13.0 % (12.1-15.1) 10/13/23 08:53 Plt Count 254 10^3/cmm (157-399) 10/13/23 08:53 MPV 12.0 fL (7.4-10.4) H 10/13/23 08:53 Neut % (Auto) 70.1 % 10/13/23 08:53 Lymph % (Auto) 19.6 % 10/13/23 08:53 [place] % (Auto) 8.7 % 10/13/23 08:53 Eos % (Auto) 0.7 % 10/13/23 08:53 Baso % (Auto) 0.5 % 10/13/23 08:53 Neut # (Auto) 5.99 10^3/uL (1.8-7.7) 10/13/23 08:53 Lymph # (Auto) 1.7 10^3/uL (0.8-4.8) 10/13/23 08:53 [place] # (Auto) 0.7 10^3/uL (0.2-0.9) 10/13/23 08:53 Eos # (Auto) 0.1 10^3/uL (0.0-0.8) 10/13/23 08:53 Baso # (Auto) 0.0 10^3/uL (0.0-0.1) 10/13/23 08:53 Nucleated RBC % (auto) 0 % 10/13/23 08:53 Nucleated RBCs # 0.0 /100WBC 10/13/23 08:53 Sodium 139 mmol/L (136-145) 10/13/23 08:53 Potassium 3.9 mmol/L (3.5-5.1) 10/13/23 08:53 Chloride 102 mmol/L (98-107) 10/13/23 08:53 Carbon Dioxide 30 mmol/L (22-29) H 10/13/23 08:53 Anion Gap 10.9 (5-19) 10/13/23 08:53 BUN 9 mg/dL (8-23) 10/13/23 08:53 Creatinine 0.9 mg/dL (0.7-1.2) 10/13/23 08:53 GFR Calculation 84.4 mL/min (90-130) L 10/13/23 08:53 Glucose 110 mg/dL (65-115) 10/13/23 08:53 Calculated Osmolality 287 mOsm/kg (285-295) 10/13/23 08:53 Calcium 9.7 mg/dL (8.5-10.5) 10/13/23 08:53 Magnesium 2.0 mg/dL (1.7-2.3) 10/13/23 08:53 Total Bilirubin 0.5 mg/dL (0.15-1.2) 10/13/23 08:53 AST 14 U/L (0-40) 10/13/23 08:53 ALT 16 U/L (0-41) 10/13/23 08:53 Alkaline Phosphatase 77 U/L (40-130) 10/13/23 08:53 Total Protein 6.9 g/dL (6.6-8.7) 10/13/23 08:53 Albumin 4.1 g/dL (3.5-5.2) 10/13/23 08:53 Globulin 2.8 g/dL (1.3-4.6) 10/13/23 08:53 TSH 0.49 uIU/mL (0.27-4.20) 10/13/23 08:53 No radiology studies performed this visit Discharge Plan Discharge Patient Disposition: Home Clinical Impression: Frequent PVCs, Bigeminy Condition: Stable Prescriptions: No Action finasteride 5 mg tablet 5 mg PO DAILY tamsulosin 0.4 mg capsule 0.4 mg PO QPM meclizine 25 mg tablet 25 mg PO TID PRN (Reason: Nausea) aspirin 81 mg tablet,delayed release (DR/EC) 81 mg PO DAILY loratadine 10 mg tablet 10 mg PO DAILY galantamine 4 mg tablet 4 mg PO BID Qty: 60 3RF Rx Instructions: administer with AM and PM meals; watch for nausea memantine 10 mg tablet 10 mg PO BID Qty: 60 3RF metoprolol tartrate 25 mg tablet 25 mg PO BID Qty: 180 3RF lisinopril 20 mg Tablet 10 mg PO DAILY omega 1-mzu-ype-fish oil [Fish Oil] 300-1,000 mg Capsule 1 cap PO BID atorvastatin 20 mg Tablet 10 mg PO QPM cholecalciferol (vitamin D3) 25 mcg (1,000 unit) Tablet 25 mcg PO DAILY Discharge Orders: Discharge ED (Routine); Ordered 10/13/23 Ordered By: Yariel Foley Referrals: Sofia Gold MD [Primary Care Provider] - Discharge Diet: Usual diet Discharge Activity: Increase activity as tolerated Patient Instructions: Opioid Safety, Pain Management Activity Restrictions/Additional Instructions: Thank you for choosing [facility] for your healthcare needs today. Please realize this is an emergency room and that we are providing you with a medical screening exam and this may not be complete and all inclusive of all the testing and or work up that you may need to determine your ailment or severity of your illness. It is very important that you follow up as instructed or that you return to the Emergency Department should you have concerns or if your condition changes or worsens in any way. You are seen today for reported low heart rate. For time he did have bigeminy which accounts for the low heart rate on peripheral heart rate monitoring. That resolved and your heart rate has been normal blood pressure has been stable you have had intermittent episodes of PVCs. These are generally benign. Will make arrangements for you to have an outpatient 48-hour Holter monitor and follow-up with your primary care doctor. Coding Level of Care Code ED Deburring Technician for Cierra Mao
[2023-10-13 08:54] VITALS: BP 134/66; PULSE 75; RESP 29; O2SAT 100
[2023-10-13 09:29] VITALS: BP 145/101; PULSE 79; RESP 35; O2SAT 95
[2023-10-13 09:35] LABS: Basophils % 0.5 %; Eosinophils # 0.1 10^3/uL (0.0-0.8); Eosinophils % 0.7 %; Hematocrit 44.9 % (37-53); Lymphocytes # 1.7 10^3/uL (0.8-4.8); Lymphocytes % 19.6 %; Mean Corpuscular HGB Conc 33.9 g/dL (30-55); Mean Corpuscular Hemoglobin 29.9 pg (27-33); Mean Corpuscular Volume 88.4 fl (82-101); Monocytes # 0.7 10^3/uL (0.2-0.9); Monocytes % 8.7 %; Neutrophils # 5.99 10^3/uL (1.8-7.7); Neutrophils % 70.1 %; Nucleated Red Blood Cells % 0 %; Platelet Count 254 10^3/cmm (157-399); Red Blood Count 5.08 10^6/uL (3.85-5.65); White Blood Count 8.53 10^3/uL (3.29-11.43)
--- NOTE | 2023-10-13 09:39 | ECG_ITS ---
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 Measurements Intervals [place] Rate: 64 P: 34 VT: 129 QRS: 70 QRSD: 100 T: 66 QT: 406 QTc: 421 Interpretive Statements SINUS RHYTHM WITH FREQUENT VENTRICULAR PREMATURE COMPLEXES ABNORMAL RHYTHM ECG Compared to ECG 10/13/2023 08:42:40 No significant changes Electronically Signed On 10-14-2023 19:31:00 TABULATING SUPERVISOR by Mary Vick M.D. [id number] f
[2023-10-13 09:56] LABS: Alanine Aminotransferase 16 U/L (0-41); Albumin Level 4.1 g/dL (3.5-5.2); Alkaline Phosphatase 77 U/L (40-130); Anion Gap 10.9 (5-19); Aspartate Amino Transferase 14 U/L (0-40); Blood Urea Nitrogen 9 mg/dL (8-23); Calcium 9.7 mg/dL (8.5-10.5); Carbon Dioxide 30 mmol/L (22-29); Chloride 102 mmol/L (98-107); Globulin 2.8 g/dL (1.3-4.6); Glomerular Filtration Rate 84.4 mL/min (90-130); Glucose 110 mg/dL (65-115); Osmolality Calculated 287 mOsm/kg (285-295); Potassium 3.9 mmol/L (3.5-5.1); Sodium 139 mmol/L (136-145); Thyroid Stimulating Hormone 0.49 uIU/mL (0.27-4.20); Total Bilirubin 0.5 mg/dL (0.15-1.2); Total Protein 6.9 g/dL (6.6-8.7)
[2023-10-13 10:00] VITALS: BP 122/81; PULSE 73; RESP 26; O2SAT 99
[2023-10-13 10:47] VITALS: BP 127/69; PULSE 75; RESP 26; O2SAT 98
--- NOTE | 2023-10-16 23:34 | DCPLANNER ---
Message sent to cardiology for a request for 48 hr holter monitor.
== END 2023-10-13 10:52 | disposition home or self-care (01) ==
PROVIDERS: Emergency Provider Family Medicine; PCP Specialist
DX: I49.3 Ventricular premature depolarization (principal); R00.8 Other abnormalities of heart beat; Z79.82 Long term (current) use of aspirin; I10 Essential (primary) hypertension
CPT/HCPCS: 80053; 83735; 84443; 85025; 93005; 99284

== ENCOUNTER 2023-10-26 08:27 | Observation (INO) | payer OTHER, SELFPAY ==
[2023-10-26] VITALS (9 sets, daily range): BP systolic 102–130; BP diastolic 63–88; PULSE 73–110; RESP 14–18; TEMP 36.7–37.4; O2SAT 91–99; BMI 25.8
--- NOTE | 2023-10-26 08:40 | XR_ITS ---
WS: [id number] AP pelvis, bilateral hips, 2 views each, 10/26/2023 Clinical Data: trauma Comparison: None. Findings: The left hip shows no definite fractures. There is minimal sclerosis of the acetabulum. There is loss of the normal spherical shape of the left femoral head. Right hip shows mild sclerosis of the acetabulum. There is an irregular acetabular lip. There are no fractures or dislocations. The pelvis shows no fractures. The bladder is partly full. The SI joints and pubic symphysis are unre markable. The soft tissues are normal. Impression: 1. Moderate bilateral arthritis of both hips. 2. Negative for hip or pelvic fractures.
--- NOTE | 2023-10-26 09:05 | ED_ITS ---
HPI - Extremity Problem 2 General: Chief complaint: Extremity Injury, Lower Stated complaint: fall, hurt left hip Time Seen by Provider: 10/26/23 08:39 Source: patient Mode of arrival: ambulatory History of Present Illness: 68-year-old male moderate amount of marlenlindsay reinoso presents emergency room he has a intermittent chronic vertigo he is fallen twice in the last 2 days complaining primarily of left hip pain difficulty ambulating or bearing weight. He has a power of iron caster with him he has not been taking any of these medications lately. According to the caregiver he is at his normal baseline for speech she has some mild expressive aphasia related to his dementia no known history of stroke. MD Complaint: joint pain Associated symptoms: Deny chest pain, fever(s) or rash Review of Systems 2 Const: Denies: fever(s) or chills Card: Denies: chest pain Resp: Denies: dyspnea GI: Denies: abdominal pain : Denies: dysuria, urinary frequency or urinary urgency Musc: Denies: neck pain or back pain Skin/Breast: Denies: rash PFSH ED 2 PFSH: Medical History Essential (primary) hypertension Cardiac arrhythmia, unspecified Benign prostatic hyperplasia without lower urinary tract symptoms Elevated PSA Mildly elevated PSA with negative TRUS/biopsy in 2010. Large benign feeling AIDE. Surgical History History of ankle surgery History of surgery on arm Family History Father , AT AGE 67 Cancer Mother , AT AGE 72 No problems noted. Denies family history of Diabetes CAD (coronary artery disease) Clotting disorder Dementia Chronic kidney disease (CKD) Suicide Anesthesia complication Bleeding disorder Lung disease Stroke Social History Smoking and tobacco/nicotine status: never used tobacco/nicotine Alcohol intake: never Substance/Drug Use: never Marital status: / Current occupational status: retired Physical Exam 2 Const: COMMON NORMALS: no acute distress GENERAL APPEARANCE: cooperative and comfortable ORIENTATION/CONSCIOUSNESS: Yes awake, Yes oriented to person, Yes oriented to place and Yes oriented to time HENMT: COMMON NORMALS: normocephalic, atraumatic and hearing grossly normal bilaterally HEAD & SCALP: normocephalic and atraumatic Resp: COMMON NORMALS: normal respiratory effort, No retractions, No use of accessory muscles and clear to auscultation bilaterally AUSCULTATION: clear to auscultation bilaterally Cardio: COMMON NORMALS: regular rate, regular rhythm and No murmurs present (Cardio) RATE: regular rate RHYTHM: regular rhythm GI: COMMON NORMALS: Soft to palpation and No hepatosplenomegaly present A USCULTATION: Yes normoactive bowel sounds PALPATION: Yes Soft to palpation, No Tenderness to palpation present (GI), No Guarding due to palpation present (GI) and Yes No hepatosplenomegaly present Extremity: COMMON NORMALS: normal to inspection, capillary refill normal, no clubbing, cyanosis or edema, no calf tenderness and no pedal edema Neuro: SENSORIUM/ORIENTATION: Yes oriented to person, Yes oriented to place and Yes oriented to time Skin: COMMON NORMALS: no rashes or lesions noted GENERAL SKIN EXAM: no rashes or lesions noted Course 2 Vital Signs: Vital signs: Vital Signs Temperature 98.2 F 10/30/23 18:18 Pulse Rate 73 10/30/23 18:18 Respiratory Rate 17 10/30/23 18:18 Blood Pressure 162/99 10/30/23 18:18 Pulse Oximetry 98 10/30/23 18:18 Oxygen Delivery Me thod Room Air 10/30/23 17:24 MDM - Extremity (Nontraumatic) Medical Decision Making Left hip pain plain film negative CT does not show any acute fracture patient has some cognitive decline and is unable to walk or ambulate take care of himself family will admit for failure to thrive. He has no focal neurologic deficit was indicated of a stroke at this time. Discussed with hospitalist orders written Medical Records I reviewed the patient's medical records. Lab Data I reviewed the patient's lab results. 10/29/23 04:56 10/29/23 04:[address] 10/26/23 09:29 IMPRESSION: 1. No acute traumatic bony pathology. 2. Degenerative changes of hips, sacroiliac joints and lower lumbar spine as described. 3. Prostatomegaly with urinary bladder wall thickening consistent with outlet obstruction. Calcifications contiguous with urinary bladder wall possibly representing layering tiny calculi and/or mural calcifications. Lumbar Spine CT 10/26/23 13:56 IMPRESSION: No acute pathology. Severe degenerative disc disease at L2-3 and severe facet arthropathy at L5-S1. Laboratory Results WBC 9.45 10^3/uL (3.29-11.43) 10/26/23 12:23 RBC 4.89 10^6/uL (3.85-5.65) 10/26/23 12:23 Hgb 14.50 g/dL (11.27-16.99) 10/26/23 12:23 Hct 43.6 % (37-53) 10/26/23 12:23 MCV 89.2 fl (82-101) 10/26/23 12:23 MCH 29.7 pg (27-33) 10/26/23 12:23 MCHC 33.3 g/dL (30-55) 10/26/23 12:23 RDW 13.2 % (12.1-15.1) 10/26/23 12:23 Plt Count 217 10^3/cmm (157-399) 10/26/23 12:23 MPV 10.8 fL (7.4-10.4) H 10/26/23 12:23 Neut % (Auto) 71.0 % 10/26/23 12:23 Lymph % (Auto) 13.4 % 10/26/23 12:23 [place] % (Auto) 14.6 % 10/26/23 12:23 Eos % (Auto) 0.4 % 10/26/23 12:23 Baso % (Auto) 0.4 % 10/26/23 12:23 Neut # (Auto) 6.70 10^3/uL (1.8-7.7) 10/26/23 12:23 Lymph # (Auto) 1.3 10^3/uL (0.8-4.8) 10/26/23 12:23 [place] # (Auto) 1.4 10^3/uL (0.2-0.9) H 10/26/23 12:23 Eos # (Auto) 0.0 10^3/uL (0.0-0.8) 10/26/23 12:23 Baso # (Auto) 0.0 10^3/uL (0.0-0.1) 10/26/23 12:23 Nucleated RBC % (auto) 0 % 10/26/23 12:23 Nucleated RBCs # 0.0 /100WBC 10/26/23 12:23 Sodium 133 mmol/L (136-145) L 10/26/23 12:23 Potassium 3.9 mmol/L (3.5-5.1) 10/26/23 12:23 Chloride 96 mmol/L (98-107) L 10/26/23 12:23 Carbon Dioxide 23 mmol/L (22-29) 10/26/23 12:23 Anion Gap 17.9 (5-19) 10/26/23 12:23 BUN 12 mg/dL (8-23) 10/26/23 12:23 Creatinine 1.0 mg/dL (0.7-1.2) 10/26/23 12:23 GFR Calculation 74.8 mL/min (90-130) L 10/26/23 12:23 Glucose 98 mg/dL (65-115) 10/26/23 12:23 Estimat Average Glucose 120 10/26/23 12:23 Hemoglobin A1c 5.8 % (4.0-6.0) 10/26/23 12:23 Calculated Osmolality 276 mOsm/kg (285-295) L 10/26/23 12:23 Calcium 9.5 mg/dL (8.5-10.5) 10/26/23 12:23 Total Bilirubin 2.0 mg/dL (0.15-1.2) H 10/26/23 12:23 AST 14 U/L (0-40) 10/26/23 12:23 ALT 14 U/L (0-41) 10/26/23 12:23 Alkaline Phosphatase 72 U/L (40-130) 10/26/23 12:23 Total Protein 7.5 g/dL (6.6-8.7) 10/26/23 12:23 Albumin 4.1 g/dL (3.5-5.2) 10/26/23 12:23 Globulin 3.4 g/dL (1.3-4.6) 10/26/23 12:23 TSH 0.91 uIU/mL (0.27-4.20) 10/26/23 12:23 All radiology interpretation(s) finalized by discharge Discharge Plan Discharge Patient Disposition: Admitted As Inpatient Admit Provider: Cynthia,Sarah Clinical Impression: Benign essential HTN, Benign positional vertigo, Alzheimer disease, Adult failure to thrive, Status post fall Condition: Stable Discharge Diet: Regular Discharge Activity: Resume usual activity Coding Level of Care Code ED Certified Professional Coder for Cierra Mao
--- NOTE | 2023-10-26 09:29 | CTR_ITS ---
PROCEDURE INFORMATION: Exam: CT Pelvis Without Contrast; Skeletal Exam date and time: 10/26/2023 10:04 AM Age: 68 years old Clinical indication: Injury or trauma; Blunt trauma (contusions or hematomas); Patient HX: C/O bilateral hip pain with worsening ability to bear weight since a fall two days ago. ; Additional info: Left hip pain unable to bear weight TECHNIQUE: Imaging protocol: Computed tomography of the pelvis without contrast. Exam focused on the skeleton. Radiation optimization: All CT scans at this facility use at least one of these dose optimization techniques: automated exposure control; mA and/or kV adjustment per patient size (includes targeted exams where dose is matched to clinical indication); or iterative reconstruction. COMPARISON: CR XR hip BI 2V wo/w pel [id number] 10/26/2023 8:46 AM RADIATION DOSE METRICS: Total DLP (mGy-cm): 315.69 FINDINGS: Stomach and bowel: Colonic diverticulosis without evidence of focal inflammatory change. Urinary bladder: Urinary bladder wall is thickened and there are calcifications contiguous with the posterior bladder wall which may represent intraluminal layering small calculi and/or mural calcifications. Reproductive: Marked prostatomegaly. Bones/joints: Mild degenerative changes sacroiliac joints and mild to moderate degenerative changes of bilateral hip joints. No fracture or dislocation. Degenerative change at the symphysis pubis. Minimal anterolisthesis of L5 on S1 with mild degenerative disc disease at L4-5. Soft tissues: Moderate fat containing umbilical hernia. Small fat containing left inguinal hernia. Other findings: Evaluation limited by motion artifacts. CT/CT bony pelvis [id number] IMPRESSION: 1. No acute traumatic bony pathology. 2. Degenerative changes of hips, sacroiliac joints and lower lumbar spine as described. 3. Prostatomegaly with urinary bladder wall thickening consistent with outlet obstruction. Calcifications contiguous with urinary bladder wall possibly representing layering tiny calculi and/or mural calcifications.
--- NOTE | 2023-10-26 11:49 | PC.NURSE ---
Pt stood at bedside, pt unable to bear weight on left leg. Dr Foley aware.
[2023-10-26 12:35] LABS: Basophils % 0.4 %; Eosinophils % 0.4 %; Hematocrit 43.6 % (37-53); Lymphocytes # 1.3 10^3/uL (0.8-4.8); Lymphocytes % 13.4 %; Mean Corpuscular HGB Conc 33.3 g/dL (30-55); Mean Corpuscular Hemoglobin 29.7 pg (27-33); Mean Corpuscular Volume 89.2 fl (82-101); Mean Platelet Volume 10.8 fL (7.4-10.4); Monocytes # 1.4 10^3/uL (0.2-0.9); Monocytes % 14.6 %; Nucleated Red Blood Cells % 0 %; Platelet Count 217 10^3/cmm (157-399); Red Blood Count 4.89 10^6/uL (3.85-5.65); Red Cell Distribution Width 13.2 % (12.1-15.1); White Blood Count 9.45 10^3/uL (3.29-11.43)
--- NOTE | 2023-10-26 12:44 | PC.PHAR ---
Addendum entered by Andra Bowman 10/27/23 08:11: still [facility] 10/27/22 Original Note: have called pts home health nurse 3 times to verify home medications for this pt- pts visitor sts he is unsure of what pt is taling and there have been changes on the [facility] list as well
[2023-10-26 12:55] LABS: Alanine Aminotransferase 14 U/L (0-41); Albumin Level 4.1 g/dL (3.5-5.2); Alkaline Phosphatase 72 U/L (40-130); Anion Gap 17.9 (5-19); Aspartate Amino Transferase 14 U/L (0-40); Blood Urea Nitrogen 12 mg/dL (8-23); Calcium 9.5 mg/dL (8.5-10.5); Carbon Dioxide 23 mmol/L (22-29); Chloride 96 mmol/L (98-107); Globulin 3.4 g/dL (1.3-4.6); Glomerular Filtration Rate 74.8 mL/min (90-130); Glucose 98 mg/dL (65-115); Osmolality Calculated 276 mOsm/kg (285-295); Potassium 3.9 mmol/L (3.5-5.1); Sodium 133 mmol/L (136-145); Total Protein 7.5 g/dL (6.6-8.7)
--- NOTE | 2023-10-26 13:20 | PM.HP ---
Providers/Chief Complaint Primary Care Provider: Sofia Gold MD Chief Complaint: fall, hurt left hip History of Present Illness Josué Jara is a 68 year old male with history of hypertension, BPH, cardiac arrhythmia?, Dementia presented to the hospital after a fall. He was brought in by his neighbor. His neighbor has been taking care of him. He has a power of assistant district attorney as well. Neighbor states patient has not been taking his medications lately. Patient does have a history of chronic vertigo and he is fallen twice in the last 2 days and he landed on his hip currently having difficulty ambulating or bearing any weight. He had a pelvic CT done in the ER which did not show any overt fractures. Patient does have mild expressive aphasia related to dementia however no known history of stroke. Patient is unable to care for himself at home. Initial labs obtained in ER are unremarkable. Patient being admitted for possible placement to shelter. Pt states he stopped taking his meds 10 days prior. He seems to be confused. When asked who was the president, he stated it he will be kissing the camera. He lives with kenney at home. Its the year 1960. List of all medications in system show aspirin, atorvastatin, finasteride, galantamine, lisinopril, loratadine, meclizine, memantine, Lopressor, tamsulosin. Apparently patient not taking any medications at this time. Medications/Allergies Home Medications Medication Instructions Recorded Confirmed Last Taken Type finasteride 5 mg tablet 5 mg PO DAILY 04/28/21 10/13/23 10/13/23 History meclizine 25 mg tablet 25 mg PO TID PRN Nausea 04/28/21 10/13/23 Unknown History tamsulosin 0.4 mg capsule 0.4 mg PO QPM 04/28/21 10/13/23 10/12/23 History aspirin 81 mg tablet,delayed 81 mg PO DAILY 10/05/22 10/13/23 10/13/23 History release loratadine 10 mg tablet 10 mg PO DAILY 10/05/22 10/13/23 10/13/23 History metoprolol tartrate 25 mg tablet 25 mg PO BID #180 tabs 10/27/22 10/13/23 10/13/23 Rx lisinopril 20 mg tablet 10 mg PO DAILY 10/29/22 10/13/23 10/13/23 History omega 8-ant-kzi-fish oil 300 1 cap PO BID 10/29/22 10/13/23 10/13/23 History mg-1,000 mg capsule (Fish Oil) galantamine 4 mg tablet 4 mg PO BID #60 tabs 11/24/22 10/13/23 10/13/23 Rx memantine 10 mg tablet 10 mg PO BID #60 tabs 11/24/22 10/13/23 10/13/23 Rx atorvastatin 20 mg tablet 10 mg PO QPM 10/13/23 10/13/23 10/12/23 History cholecalciferol (vitamin D3) 25 25 mcg PO DAILY 10/13/23 10/13/23 10/13/23 History mcg (1,000 unit) tablet Allergies Allergy/AdvReac Type Severity Reaction Status Date / Time No Known Allergies Allergy Verified 10/26/23 09:18 PFSH Acute PFSH: Medical History Essential (primary) hypertension Cardiac arrhythmia, unspecified Benign prostatic hyperplasia without lower urinary tract symptoms Elevated PSA Mildly elevated PSA with negative TRUS/biopsy in 2010. Large benign feeling AIDE. Surgical History History of ankle surgery History of surgery on arm Family History Father , AT AGE 67 Cancer Mother , AT AGE 72 No problems noted. Denies family history of Diabetes CAD (coronary artery disease) Clotting disorder Dementia Chronic kidney disease (CKD) Suicide Anesthesia complication Bleeding disorder Lung disease Stroke Social History Smoking and tobacco/nicotine status: never used tobacco/nicotine Alcohol intake: never Substance/Drug Use: never Marital status: / Current occupational status: retired Vitals/I&O/Wt Last Vital Signs Temp 98.2 F 10/26/23 08:35 Pulse 88 10/26/23 11:35 Resp 18 10/26/23 11:35 BP 119/88 10/26/23 11:35 Pulse Ox 99 10/26/23 11:35 O2 Del Method Room Air 10/26/23 11:35 Weight last 48 hrs Weight 81.647 kg Physical Exam Narrative: General: Alert oriented x2, patient seen laying in bed HEENT: Normocephalic, atraumatic, EOMI, room air Cardio: Regular rate rhythm, normal S1-S2, Respiratory: Good bilateral air entry, no wheezes no rhonchi appreciated, cleart to auscultation b/l GI: Abdomen soft, nontender, nondistended, bowel sounds + Extremities: WNL, no signs of cauda equina Data 10/26/23 12:23 10/26/23 12:23 A&P Assessment and plan (1) Benign essential HTN: (2) Ventricular arrhythmia: (3) Dyslipidemia: (4) Vertigo: (5) Benign positional vertigo: (6) Alzheimer disease: Plan #Failure to thrive #Hypertension #Noncompliant to medication #Dementia #Status post fall #Chronic vertigo #Expressive aphasia possibly secondary to dementia? No actual history of stroke #Unable to care for himself at home ? Consult case management for possible placement ? Initial labs unremarkable ? Continue to monitor in hospital till placed for blood pressure heart rate temperature. Saturating 99% on room air. ? Will restart galantamine, memantine at this time. ? Check TSH ? Check hemoglobin A1c ? Check vitamin B12 level ? Check head CT - Check lumbar CT due to complaint of back pain radiating down to legs. Full code DVT prophylaxis: Lovenox 40 daily Attestations Medical Necessity Statement*: Requires observation stay in the hospital for possible placement in shelter. Diagnoses Benign essential HTN I10 Ventricular arrhythmia I49.9 Dyslipidemia E78.5 Vertigo R42 Benign positional vertigo H81.10 Alzheimer disease G30.9; F02.80
--- NOTE | 2023-10-26 13:34 | CT_ITS ---
WS: [id number] CT HEAD TECHNIQUE: Noncontrast CT of the head obtained from the skullbase to the vertex. CLINICAL INFORMATION: r/o stroke COMPARISON: 10/29/2022 DLP: 1108.[address] scans at [facility] use at least one of these dose optimization techniques: automated e xposure control; mA and/or kV adjustment per patient size (includes targeted exams where dose is matc hed to clinical indication); or iterative reconstruction. FINDINGS: No evidence of intracranial hemorrhage or mass effect. Ventricular system and basal cisterns are meza nt. Mild small vessel changes with moderate parenchymal volume loss. No extra-axial fluid collections . No evidence of mass or mass effect. Intracranial vascular calcification. Mild mucosal thickening in the ethmoid air cells. Normal visualized soft tissues. IMPRESSION: 1. No evidence of intracranial hemorrhage or mass effect. 2. No acute intracranial findings.
--- NOTE | 2023-10-26 13:47 | PC.NURSE ---
[place] and soda provided to eat at pt request
--- NOTE | 2023-10-26 13:56 | CTR_ITS ---
PROCEDURE INFORMATION: Exam: CT Lumbar Spine Without Contrast Exam date and time: 10/26/2023 2:01 PM Age: 68 years old Clinical indication: Low back pain TECHNIQUE: Imaging protocol: Computed tomography of the lumbar spine without contrast. Radiation optimization: All CT scans at this facility use at least one of these dose optimization techniques: automated exposure control; mA and/or kV adjustment per patient size (includes targeted exams where dose is matched to clinical indication); or iterative reconstruction. COMPARISON: CT pelvis wo con [id number] 10/26/2023 10:04 AM RADIATION DOSE METRICS: Total DLP (mGy-cm): 657 FINDINGS: Bones/joints: Mild dextrocurvature. Severe degenerative disc disease at L2-3, asymmetrically greater at the left aspect of the disc space. Mild degenerative disc disease at L3-4, asymmetrically greater at the right aspect of the disc space. Degenerative facet arthropathy, greatest at L5-S1. No fracture or dislocation. Kidneys and ureters: Calcification lower right renal sinus indeterminate for nonobstructive calculus versus vascular calcification. Soft tissues: Unremarkable. CT/CT lumbar spine wo con* [id number] IMPRESSION: No acute pathology. Severe degenerative disc disease at L2-3 and severe facet arthropathy at L5-S1.
[2023-10-26 14:07] LABS: Thyroid Stimulating Hormone 0.91 uIU/mL (0.27-4.20)
[2023-10-26] MEDS: enoxaparin 40 mg/0.4 mL Syringe SUBCUT (14:13)
[2023-10-26 14:38] LABS: Estmated Average Glucose 120; Hemoglobin A1C 5.8 % (4.0-6.0)
[2023-10-26 15:52] LABS: Add Urine Microscopic? NO; Charge for UA Resulting for Rev
[2023-10-26 16:02] LABS: Urine Appearance Clear (CLEAR); Urine Color Yellow (Yellow)
[2023-10-26 16:03] LABS: Bilirubin Urine Neg (Negative); Blood Urine Neg (Negative); Glucose Urine UA Norm (Normal); Ketones Urine 1+ (Negative); Leukocyte Esterase Urine Negative (Negative); Nitrate Urine Negative (Negative); Protein Urine Neg (Negative); Urobilinogen Urine Norm (Negative); pH Urine 5 (5-7)
[2023-10-26] MEDS: sodium chloride 0.9% 1,000 ML 75 ML IV (18:00)
[2023-10-26] MEDS: atorvastatin 40 mg Tablet 20 MG PO (18:03)
[2023-10-26] MEDS: metoprolol tartrate 25 mg Tablet PO (18:04)
[2023-10-26] MEDS: tamsulosin 0.4 mg Capsule PO (18:04)
[2023-10-26] MEDS: omega-3 fatty acids 1,000 mg Capsule 1000 MG PO (18:04)
[2023-10-26] MEDS: memantine 5 mg tablet 10 MG PO (18:04)
[2023-10-26] MEDS: HYDROcodone-acetaminophen 5-325 mg Tablet 1 TAB PO (20:44)
[2023-10-27] MEDS: HYDROcodone-acetaminophen 5-325 mg Tablet 1 TAB PO ×2 (01:57→08:08)
[2023-10-27 03:07] VITALS: BP 100/67; PULSE 92; RESP 16; O2SAT 95
[2023-10-27] MEDS: sodium chloride 0.9% 1,000 ML 75 ML IV ×2 (03:07→21:36)
[2023-10-27 06:25] LABS: Basophils % 0.5 %; Eosinophils # 0.1 10^3/uL (0.0-0.8); Eosinophils % 1.2 %; Lymphocytes # 1.3 10^3/uL (0.8-4.8); Mean Corpuscular HGB Conc 33.5 g/dL (30-55); Mean Corpuscular Hemoglobin 29.3 pg (27-33); Mean Corpuscular Volume 87.3 fl (82-101); Monocytes # 1.2 10^3/uL (0.2-0.9); Monocytes % 13.5 %; Neutrophils % 69.4 %; Nucleated Red Blood Cells % 0 %; Platelet Count 195 10^3/cmm (157-399); Red Blood Count 4.58 10^6/uL (3.85-5.65); Red Cell Distribution Width 13.1 % (12.1-15.1); White Blood Count 8.49 10^3/uL (3.29-11.43)
[2023-10-27 07:01] LABS: Alanine Aminotransferase 10 U/L (0-41); Albumin Level 3.6 g/dL (3.5-5.2); Alkaline Phosphatase 64 U/L (40-130); Anion Gap 15.9 (5-19); Aspartate Amino Transferase 12 U/L (0-40); Blood Urea Nitrogen 12 mg/dL (8-23); Calcium 8.8 mg/dL (8.5-10.5); Carbon Dioxide 20 mmol/L (22-29); Chloride 103 mmol/L (98-107); Creatinine Clr Calc Pharmacy 93.5894; Globulin 2.3 g/dL (1.3-4.6); Glomerular Filtration Rate 96.7 mL/min (90-130); Glucose 99 mg/dL (65-115); Osmolality Calculated 280 mOsm/kg (285-295); Phosphorus 2.3 mg/dL (2.5-4.5); Potassium 3.9 mmol/L (3.5-5.1); Sodium 135 mmol/L (136-145); Total Bilirubin 1.2 mg/dL (0.15-1.2); Total Protein 5.9 g/dL (6.6-8.7)
[2023-10-27 07:46] VITALS: BP 127/81; PULSE 82; RESP 16; TEMP 36.6; O2SAT 99
[2023-10-27] MEDS: finasteride 5 mg Tablet PO (08:08)
[2023-10-27] MEDS: memantine 5 mg tablet 10 MG PO ×2 (08:08→17:23)
[2023-10-27] MEDS: aspirin 81 mg EC Tablet PO (08:08)
[2023-10-27] MEDS: cholecalciferol (vitamin D3) 1,000 unit Tablet 1000 UNIT PO (08:08)
[2023-10-27] MEDS: metoprolol tartrate 25 mg Tablet PO ×2 (08:08→17:24)
[2023-10-27] MEDS: omega-3 fatty acids 1,000 mg Capsule 1000 MG PO ×2 (08:08→17:24)
--- NOTE | 2023-10-27 09:08 | PC.PHAR ---
PT UNABLE TO VERIFY HOME MEDICATIONS- UNABLE TO GET [facility] OF HOME HEALTH NURSE FOR TWO DAYS- [facility]- CURRENT MED LIST SHOWS FINASTERIDE, LISINOPRIL, AND TAMSULOSIN DISCONTINUED
--- NOTE | 2023-10-27 11:07 | PC.CHAP ---
Pastoral Care Encounter/Spiritual Assessment Type of Contact [] Declined general agent visit [] Patient/Family/Request visit [] Outpatient visit [x] Follow-up visit [] Physician referral [] Code/Alert [x] Routine visit [] Staff referral [] Actively dying [] Patient sleeping [] Family support [] [] Out of room [] Palliative care [] [] Receiving care in room [] Pre-surgical visit [] Trauma [] Long length of stay [] ICU visit [] Other: Relational/Emotional Strength [] Patient feels connected with others/family/visitors/staff [] Distress [] Loneliness/isolation [] Abandonment Spirituality of Patient [] Person of Karen [] Attends Gnosticism of their Karen [] Believes in Prayer [] Reads Bible or Amish materials [] There are Spiritual issues to be addressed [employer]le [employer] Interventions [] Prayer [] Active listening [] Non-anxious presence [] Spiritual/emotional support [] Crisis/trauma care [] Spiritual counseling [] Bereavement support [] Provided bereavement packet [] Provided Bible/devotional materials [] Provided toy/stuffed animal, coloring book to patient or family member [] Provided Communion [] Anointing/[place] [] Salvation [] Completed spiritual assessment [] Other: Impact on Illness or Injury [] Angry [] Fearful [] Anxious [] Often cries [] Exhaustion [] Unable to work [] Unable to attend yazdanism [] Unable to walk/stand [] Unable to read [] Unable to drive [] Unable to eat/drink [] Unable to sleep [] Unable to be with family [] Patient intubated [] Other: Summary Follow-up visit Time spent with patient 5 mins
[2023-10-27 11:32] VITALS: BP 103/69; PULSE 65; RESP 16; TEMP 36.3; O2SAT 97
--- NOTE | 2023-10-27 11:52 | PC.OT ---
OT EVALUATION ATTEMPTED. PATIENT SLEEPING SOUNDLY; SNORING DOES NOT AWAKEN TO MY REQUEST. 1:1 SITTER PRESENT. EVALUATION TO BE ATTEMPTED AT A LATER TIME.
--- NOTE | 2023-10-27 12:30 | P.PN_ITS ---
Subjective 2 Subjective: Confused due to dementia Vitals/I&O/Wt Last Vital Signs Temp 97.3 F L 10/27/23 11:32 Pulse 65 10/27/23 11:32 Resp 16 10/27/23 11:32 BP 103/69 10/27/23 11:32 Pulse Ox 97 10/27/23 11:32 O2 Del Method Room Air 10/27/23 11:32 10/26/23 10/27/23 10/27/23 22:59 06:59 14:59 Intake Total 240 / 240 923.75 / 1163.75 360 / 360 Output Total 450 / 450 Balance 240 / 240 473.75 / 713.75 360 / 360 Weight last 48 hrs Weight 72.62 kg Weight 81.647 kg Weight 81.647 kg Physical Exam 2 Narrative: General: confused HEENT: Normocephalic, atraumatic, EOMI, room air Cardio: Regular rate rhythm, normal S1-S2, Respiratory: CTA B/L GI: Abdomen soft, nontender, Extremities: WNL, Data 10/27/23 06:17 10/27/23 06:17 A&P Assessment and plan (1) Benign essential HTN: (2) Ventricular arrhythmia: (3) Dyslipidemia: (4) Vertigo: (5) Benign positional vertigo: (6) Alzheimer disease: Plan #Failure to thrive #Hypertension #Noncompliant to medication #Dementia #Status post fall #Chronic vertigo #Expressive aphasia possibly secondary to dementia? No actual history of stroke #Unable to care for himself at home ? Consult case management for possible placement ? Initial labs unremarkable ? Continue to monitor in hospital till placed for blood pressure heart rate temperature. Saturating 99% on room air. ? continue galantamine, memantine at this time. ? TSH 0.91 ? hemoglobin A1c 5.8 ? Check head CT - negative for stroke - Check lumbar CT due to complaint of back pain radiating down to legs. No acute pathology. Severe degenerative disc disease at L2-3 and severe facet arthropathy at L5-S1. Full code DVT prophylaxis: Lovenox 40 daily Disposition: Awaiting placement Attestations 2 Medical Necessity Statement*: Requires observation stay in the hospital for possible placement in [facility]. Diagnoses Benign essential HTN I10 Ventricular arrhythmia I49.9 Dyslipidemia E78.5 Vertigo R42 Benign positional vertigo H81.10 Alzheimer disease G30.9; F02.80
[2023-10-27] MEDS: enoxaparin 40 mg/0.4 mL Syringe SUBCUT (14:00)
[2023-10-27 15:53] LABS: Vitamin B12 353 pg/mL (232-1245)
--- NOTE | 2023-10-27 15:53 | PM.CONSULT ---
Providers/Reason For Consult Consulting Physician/Specialty*: Deejay Mooney MD neurology and epilepsy Reason for Consult*: The altered mental status and patient with history of senile dementia of the Alzheimer's type and reported history of dog bites by a pitbull 2-1/2 months ago and history of receiving rabies vaccines although patient missed his last rabies vaccination Attending Physician: Sarah Marie MD Primary Care Provider: Sofia Gold MD History of Present Illness History of Present Illness Josué Jara is a 68 year old male with a history of senile dementia of the Alzheimer's type, treated with galantamine and Namenda, ventricular arrhythmia, benign positional vertigo, dyslipidemia, elevated PSA and essential hypertension. The patient has a legal guardian. According to the history presented by the attending physician and nurses caring for the patient, the patient was admitted on 10/26/2023 secondary to intermittent dizziness and falling and injuring his hip. There was report the patient had been off of Namenda and galantamine for 10 days. Reason patient was not taking his dementia medication is not clear. There was also reports that the patient experienced several dog bites by a pit bull 2-1/2 months prior to admission. Patient has received rabies vaccination but apparently missed the last rabies vaccine dose. Patient was reported to become more agitated and confused and therefore neurology consult was obtained. The patient has remained afebrile and basic blood work for CBC and comprehensive metabolic panel and thyroid profile was unrevealing. Noncontrast head CT was obtained and reported to reveal no acute findings. CT of the lumbar spine was obtained and revealed Severe degenerative disc disease at L2-3 and severe facet arthropathy at L5-S1 but no acute findings. Past medical history: Senile dementia of the Alzheimer's type Dyslipidemia Ventricular arrhythmia Benign positional vertigo Elevated PSA Essential hypertension Drug allergies: None Current home medications: Namenda 10 mg p.o. twice daily for dementia Galantamine 4 mg p.o. twice daily for dementia Aspirin 81 mg p.o. daily Lipitor 10 mg p.o. q. evening Vitamin D3 25 mcg p.o. daily Claritin 10 mg p.o. daily Meclizine 25 mg p.o. 3 times daily, as needed Metoprolol 25 mg p.o. twice daily [place]-3 fatty acid 1 p.o. twice daily Habits: Patient denies drug use Family history: Unknown Review of Systems General: Reports: 10 or more systems reviewed and unremarkable except in HPI and below Skin/Breast: Reports: other (Nail discoloration suggestive of toenail fungus and poorly kept nails) Medications/Allergies Home Medications Medication Instructions Recorded Confirmed Last Taken Type meclizine 25 mg tablet 25 mg PO TID PRN Nausea 04/28/21 10/27/23 Unknown History aspirin 81 mg tablet,delayed 81 mg PO DAILY 10/05/22 10/27/23 10/13/23 History release loratadine 10 mg tablet 10 mg PO DAILY 10/05/22 10/27/23 10/13/23 History metoprolol tartrate 25 mg tablet 25 mg PO BID #180 tabs 10/27/22 10/27/23 10/13/23 Rx omega 8-mes-hcg-fish oil 300 1 cap PO BID 10/29/22 10/27/23 10/13/23 History mg-1,000 mg capsule (Fish Oil) galantamine 4 mg tablet 4 mg PO BID #60 tabs 11/24/22 10/27/23 10/13/23 Rx memantine 10 mg tablet 10 mg PO BID #60 tabs 11/24/22 10/27/23 10/13/23 Rx atorvastatin 20 mg tablet 10 mg PO QPM 10/13/23 10/27/23 10/12/23 History cholecalciferol (vitamin D3) 25 25 mcg PO DAILY 10/13/23 10/27/23 10/13/23 History mcg (1,000 unit) tablet Allergies Allergy/AdvReac Type Severity Reaction Status Date / Time No Known Allergies Allergy Verified 10/26/23 09:18 Current Medications Generic Name Dose Route Start Last Admin Trade Name Freq PRN Reason Stop Dose Admin Hydrocodone Bitart/Acetaminophen 1 tab 10/26/23 14:44 10/27/23 08:08 Hydrocodone-Acetaminophen 5-325 Mg Tablet PO 1 tab Q4H PRN Administration MODERATE TO SEVERE PAIN Aspirin 81 mg 10/27/23 09:00 10/27/23 08:08 Aspirin 81 Mg Ec Tablet PO 81 mg DAILY RAMON Administration Atorvastatin Calcium 20 mg 10/26/23 18:00 10/26/23 18:03 Atorvastatin 40 Mg Tablet PO 20 mg QPM RAMON Administration Enoxaparin Sodium 40 mg 10/26/23 13:45 10/27/23 14:00 Enoxaparin 40 Mg/0.4 Ml Syringe SUBCUT 40 mg Q24H RAMON Administration Finasteride 5 mg 10/27/23 09:00 10/27/23 08:08 Finasteride 5 Mg Tablet PO 5 mg DAILY RAMON Administration Sodium Chloride 1,000 mls @ 75 mls/hr 10/26/23 13:45 10/27/23 06:33 Sodium Chloride 0.9% IV 75 mls/hr .[id number] RAMON Infusion Memantine 10 mg 10/26/23 18:00 10/27/23 08:08 Memantine 5 Mg Tablet PO 10 mg BID RAMON Administration Metoprolol Tartrate 25 mg 10/26/23 18:00 10/27/23 08:08 Metoprolol Tartrate 25 Mg Tablet PO 25 mg BID RAMON Administration Non-Formulary Medication 4 mg 10/26/23 18:00 10/27/23 08:06 Galantamine PO Not Given BID RAMON Qyalz-1-Grcy Ethyl Esters 1,000 mg 10/26/23 18:00 10/27/23 08:08 [place]-3 Fatty Acids 1,000 Mg Capsule PO 1,000 mg BID RAMON Administration Tamsulosin HCl 0.4 mg 10/26/23 18:00 10/26/23 18:04 Tamsulosin 0.4 Mg Capsule PO 0.4 mg QPM RAMON Administration Vitamin D 1,000 unit 10/27/23 09:00 10/27/23 08:08 Cholecalciferol (Vitamin D3) 1,000 Unit Tablet PO 1,000 unit DAILY RAMON Administration PFSH Acute PFSH: Medical History Essential (primary) hypertension Cardiac arrhythmia, unspecified Benign prostatic hyperplasia without lower urinary tract symptoms Elevated PSA Mildly elevated PSA with negative TRUS/biopsy in 2010. Large benign feeling AIDE. Surgical History History of ankle surgery History of surgery on arm Family History Father , AT AGE 67 Cancer Mother , AT AGE 72 No problems noted. Denies family history of Diabetes CAD (coronary artery disease) Clotting disorder Dementia Chronic kidney disease (CKD) Suicide Anesthesia complication Bleeding disorder Lung disease Stroke Social History Smoking and tobacco/nicotine status: never used tobacco/nicotine Alcohol intake: never Substance/Drug Use: never Marital status: / Current occupational status: retired Vitals/I&O/Wt Last Vital Signs Temp 97.3 F L 10/27/23 11:32 Pulse 65 10/27/23 11:32 Resp 16 10/27/23 11:32 BP 103/69 10/27/23 11:32 Pulse Ox 97 10/27/23 11:32 O2 Del Method Room Air 10/27/23 11:32 10/27/23 10/27/23 10/27/23 06:59 14:59 22:59 Intake Total 923.75 / 1163.75 600 / 600 Output Total 450 / 450 Balance 473.75 / 713.75 600 / 600 Weight last 48 hrs Weight 160 lb 1.6 oz Weight 180 lb Weight 180 lb Physical Exam Narrative: The patient is currently alert and oriented to person. Patient was able to tell me his complete name and his date of . He knew he was in the hospital. He was initially agitated but after talking to the patient for a few moments he was calm and was answering questions. Patient did not know the year but he stated that he does not keep up with current issues. Head atraumatic. Cranial nerves II through XII grossly intact pupils 4 mm extraocular movements intact motor testing 5/5 bilaterally. There was no obvious signs of ataxia. Lungs revealed no obvious wheezing. Heart reported to be regular rhythm and rate. Extremities were negative for cyanosis or edema but positive for discoloration of some of his toenails suggestive of toenail fungus and poorly kept nails. Data 10/27/23 06:17 10/27/23 06:17 A&P Assessment and plan (1) 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: Impression: 1. Alzheimer's disease with reported agitation (patient reported to be off Namenda and galantamine for 10 days) 2. Tenea pedis 3. Ventricular arrhythmia 4. History of being bitten by a pit bull 2-1/2 months ago with multiple bite and patient reported to undergo rabies vaccination although he missed his last rabies vaccine dose (clinically the patient does not display signs suggestive of rabies) Plan: 1. Restart galantamine 4 mg p.o. twice daily for dementia 2. Restart Namenda 10 mg p.o. twice daily for dementia 3. Since galantamine is not on the formulary I informed the nurse to start Aricept 10 mg p.o. nightly until the patient's home medication of galantamine can be obtained from the family or guardian and brought to the hospital 4. Seroquel 25 mg p.o. twice daily for agitation 5. Agree with obtaining lumbar puncture under fluoroscopy by radiology to evaluate for infection and obtain cell count, differential count, glucose, protein, cryptococcal antigen, and PCR to rabies, herpes simplex virus, CMV, pneumococcus, meningococcus, H. influenzae, West Nile virus (2) Tinea pedis: Consult Attestations Medical Necessity Statement: Patient evaluated by neurology for dementia and reports of change in sensorium/confusion Coding Level of Care Code 51133 Diagnoses 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 G30.9; F02.818 Tinea pedis B35.3
[2023-10-27 16:42] LABS: Ammonia 37 umol/L (16-60)
[2023-10-27] MEDS: tamsulosin 0.4 mg Capsule PO (17:24)
[2023-10-27] MEDS: quetiapine 25 mg Tablet PO (17:24)
[2023-10-27] MEDS: atorvastatin 40 mg Tablet 20 MG PO (17:24)
[2023-10-27] MEDS: saline nasal spray 44mL Btl 1 SPRAY NASAL (18:23)
[2023-10-27 18:41] LABS: Add Urine Microscopic? NO
[2023-10-27 19:02] LABS: Add Urine Culture? No; Bacteria Urine TRACE /hpf; Bilirubin Urine Neg (Negative); Blood Urine Neg (Negative); Glucose Urine UA Norm (Normal); Ketones Urine Negative (Negative); Leukocyte Esterase Urine Negative (Negative); Nitrate Urine Negative (Negative); Protein Urine Neg (Negative); RBC Urine 0-4 /hpf (0-2); Specific Gravity, Urine 1.005 (1.005-1.030); Squamous Epithelial Cell Urine 0-4 /hpf (0-5); Urine Appearance Clear (CLEAR); Urine Color Light yellow (Yellow); Urobilinogen Urine Norm (Negative); WBC Urine 0-4 /hpf (0-5); pH Urine 5 (5-7)
[2023-10-27 19:48] VITALS: BP 131/73; PULSE 77; RESP 18; TEMP 36.6; O2SAT 100
[2023-10-27] MEDS: donepezil 5 MG Tablet 10 MG PO (21:36)
[2023-10-28] VITALS: BP 112/73; PULSE 65; RESP 17; TEMP 37.1; O2SAT 98
[2023-10-28 04:50] VITALS: BP 120/81; PULSE 66; RESP 18; TEMP 37.1; O2SAT 96
[2023-10-28 08:00] VITALS: BP 129/90; PULSE 69; RESP 16; TEMP 36.4; O2SAT 96
[2023-10-28] MEDS: memantine 5 mg tablet 10 MG PO ×2 (11:46→18:03)
[2023-10-28] MEDS: cholecalciferol (vitamin D3) 1,000 unit Tablet 1000 UNIT PO (11:46)
[2023-10-28] MEDS: quetiapine 25 mg Tablet PO ×2 (11:46→18:03)
[2023-10-28] MEDS: sodium chloride 0.9% 1,000 ML 75 ML IV (11:47)
[2023-10-28] MEDS: omega-3 fatty acids 1,000 mg Capsule 1000 MG PO ×2 (11:47→18:03)
[2023-10-28] MEDS: finasteride 5 mg Tablet PO (11:47)
[2023-10-28] MEDS: metoprolol tartrate 25 mg Tablet PO ×2 (11:47→18:03)
[2023-10-28 12:30] VITALS: BP 139/79; PULSE 74; RESP 17; TEMP 36.7; O2SAT 94
[2023-10-28 13:13] LABS: Cyto Order Verification No Order
[2023-10-28 13:22] LABS: CSF Mononuclear # 0.001 10^3/uL (50-90); Mononuclear WBC CSF % 50 % (50-90); Polynuclear Cells ,CSF # 0.001 10^3/uL (0-10); Polynuclear WBC CSF % 50 % (0-10); Red Blood Cell CSF 0 10^3/uL (0-0); White Blood Cell CSF 2 /uL (0-5)
[2023-10-28 13:26] LABS: CSF Specific Gravity 1.005
[2023-10-28 13:36] LABS: Appearance CSF CLEAR (CLEAR); Color CSF COLORLESS (COLORLESS)
--- NOTE | 2023-10-28 13:39 | P.PN_ITS ---
Subjective 2 Subjective: seen this morning no acute events overnight patient going for LP today Talked with patient's guardian yesterday. Patient was attacked by a pit bull him back in September. He does have a history of examines dementia. Since he got bit by the 2 pitbull he has been having lots of anxiety and his mental status has changed. Patient's guardian feels that something is wrong ever since he got bit. He is not sure if this is playing anxiety, worsening dementia or something else going on. Patient has had a fall at home. He usually is very physically active. He says the dog was an indoor dog however deduced from around. It was eventually short-term by the [facility] department. Patient was getting rabies vaccines as an outpatient however has missed his last dose. Guardian cannot confirm where he was getting them. He first said maybe at Dr. Gold's office then he said somewhere in [place] then he said maybe his primary?. He told a similar story to corrections caseworker as well. Patient is confused however mental status a lot better this morning. Neurology consulted on him yesterday. He is going for lumbar puncture today. Vitals/I&O/Wt Last Vital Signs Temp 98.0 F 10/28/23 12:30 Pulse 74 10/28/23 12:30 Resp 17 10/28/23 12:30 BP 139/79 10/28/23 12:30 Pulse Ox 94 10/28/23 12:30 O2 Del Method Room Air 10/28/23 12:30 10/27/23 10/28/23 10/28/23 22:59 06:59 14:59 Intake Total 1240 / 1840 480 / 2320 1000 / 1000 Output Total 100 / 100 Balance 1140 / 1740 480 / 2220 1000 / 1000 Weight last 48 hrs Weight 72.62 kg Weight 72.62 kg Weight 81.647 kg Physical Exam 2 Narrative: General: Alert oriented to self and place. HEENT: Normocephalic, atraumatic, EOMI, room air Cardio: Regular rate rhythm, normal S1-S2, Respiratory: CTA B/L GI: Abdomen soft, nontender, Extremities: WNL, Data 10/27/23 06:17 10/27/23 06:17 A&P Assessment and plan (1) Benign essential HTN: (2) Ventricular arrhythmia: (3) Dyslipidemia: (4) Vertigo: (5) Benign positional vertigo: (6) Alzheimer disease: Plan #Alzheimer's dementia #Hypertension #Noncompliant to medication #Dementia #Status post fall #Chronic vertigo #Expressive aphasia possibly secondary to dementia? #Unable to care for himself at home #Recent dog bite currently on rabies vaccines. ? Consult case management for possible placement ? Initial labs unremarkable ? Continue to monitor in hospital till placed for blood pressure heart rate temperature. Saturating 99% on room air. ? continue galantamine, memantine at this time. ? TSH 0.91 ? hemoglobin A1c 5.8 ? Check head CT - negative for stroke - Check lumbar CT due to complaint of back pain radiating down to legs. No acute pathology. Severe degenerative disc disease at L2-3 and severe facet arthropathy at L5-S1. ? Continue Seroquel at night. Neurology consult appreciated ? Check LP today. Look for lymphocytic pleocytosis check for Lyme disease, Crellin encephalitis, VDRL. If all negative this is most likely worsening of existing dementia. This could be component of PTSD as well after having a dog bite. I personally do not believe patient has rabies as he has no symptoms of that at this time. Will wait for LP completion and CSF study is to come back. ? I will order terbinafine for his tinea pedis. Full code DVT prophylaxis: Lovenox 40 daily Disposition: Awaiting placement Attestations 2 Medical Necessity Statement*: Requires observation stay FOR WORKUP OF AMS Diagnoses Benign essential HTN I10 Ventricular arrhythmia I49.9 Dyslipidemia E78.5 Vertigo R42 Benign positional vertigo H81.10 Alzheimer disease G30.9; F02.80
--- NOTE | 2023-10-28 15:31 | FL_ITS ---
WS: [id number] LUMBAR PUNCTURE CLINICAL INFORMATION: lumbar COMPARISON: None. TECHNIQUE: Informed consent: The procedure and its potential risk and complications were discussed with the kareen ent. Patient's power of finance attorney consented to examination. Timeout: A timeout was performed to confirm correct patient, procedure, and site. Patient was prepped and draped in the usual sterile fashion. Lidocaine 1% was used for local anesthes ia. Utilizing fluoroscopic guidance, a 3.5 inch 22-gauge spinal needle was advanced into the subarach noid space at L4-5 via LEFT oblique sublaminar approach. Free flow of clear CSF was obtained. 14 cc o f CSF was collected and sent the lab for further analysis. FLUOROSCOPIC TIME: 3min [id number] # of spot films: 1 IMPRESSION: Fluoroscopically guided lumbar puncture. No immediate complications
[2023-10-28 16:10] VITALS: BP 129/77; PULSE 71; RESP 17; TEMP 36.9; O2SAT 100
[2023-10-28] MEDS: atorvastatin 40 mg Tablet 20 MG PO (18:03)
[2023-10-28] MEDS: tamsulosin 0.4 mg Capsule PO (18:03)
[2023-10-28] MEDS: terbinafine 1% Cream 15 gm 1 APPLIC TOPICAL (18:06)
[2023-10-28 20:00] VITALS: BP 111/73; PULSE 76; RESP 17; TEMP 36.4; O2SAT 98
[2023-10-28] MEDS: donepezil 5 MG Tablet 10 MG PO (21:26)
[2023-10-29] VITALS: BP 128/83; PULSE 63; RESP 17; TEMP 36.8; O2SAT 97
[2023-10-29] MEDS: sodium chloride 0.9% 1,000 ML 75 ML IV ×2 (01:43→16:35)
[2023-10-29 03:58] VITALS: BP 120/74; PULSE 65; RESP 16; TEMP 36.6; O2SAT 97
[2023-10-29 05:39] LABS: Basophils % 0.5 %; Eosinophils # 0.1 10^3/uL (0.0-0.8); Eosinophils % 1.2 %; Hematocrit 39.4 % (37-53); Lymphocytes # 1.3 10^3/uL (0.8-4.8); Lymphocytes % 17.2 %; Mean Corpuscular Hemoglobin 29.5 pg (27-33); Mean Corpuscular Volume 89.5 fl (82-101); Monocytes # 0.8 10^3/uL (0.2-0.9); Monocytes % 10.5 %; Neutrophils # 5.48 10^3/uL (1.8-7.7); Neutrophils % 70.2 %; Nucleated Red Blood Cells % 0 %; Platelet Count 218 10^3/cmm (157-399); Red Cell Distribution Width 13.2 % (12.1-15.1)
[2023-10-29 06:00] VITALS: BMI 22.9
[2023-10-29 06:03] LABS: Anion Gap 14.9 (5-19); Blood Urea Nitrogen 7 mg/dL (8-23); Calcium 8.7 mg/dL (8.5-10.5); Carbon Dioxide 23 mmol/L (22-29); Chloride 107 mmol/L (98-107); Creatinine Clr Calc Pharmacy 93.5894; Glomerular Filtration Rate 96.7 mL/min (90-130); Glucose 120 mg/dL (65-115); Osmolality Calculated 291 mOsm/kg (285-295); Potassium 3.9 mmol/L (3.5-5.1); Sodium 141 mmol/L (136-145)
[2023-10-29 07:50] VITALS: BP 130/86; PULSE 80; RESP 16; TEMP 36.3; O2SAT 99
[2023-10-29 08:00] VITALS: BP 132/63; PULSE 73; RESP 17
[2023-10-29] MEDS: finasteride 5 mg Tablet PO (08:30)
[2023-10-29] MEDS: omega-3 fatty acids 1,000 mg Capsule 1000 MG PO ×2 (08:30→17:26)
[2023-10-29] MEDS: cholecalciferol (vitamin D3) 1,000 unit Tablet 1000 UNIT PO (08:30)
[2023-10-29] MEDS: memantine 5 mg tablet 10 MG PO ×2 (08:30→17:26)
[2023-10-29] MEDS: quetiapine 25 mg Tablet PO ×2 (08:30→17:26)
[2023-10-29] MEDS: metoprolol tartrate 25 mg Tablet PO ×2 (08:30→17:26)
[2023-10-29] MEDS: terbinafine 1% Cream 15 gm 1 APPLIC TOPICAL ×2 (08:31→17:26)
[2023-10-29 11:16] VITALS: BP 132/63; PULSE 73; RESP 17; O2SAT 97
--- NOTE | 2023-10-29 12:18 | P.PN_ITS ---
Subjective 2 Subjective: History of Present Illness Josué Jara is a 68 year old male with a history of senile dementia of the Alzheimer's type, treated with galantamine and Namenda, ventricular arrhythmia, benign positional vertigo, dyslipidemia, elevated PSA and essential hypertension. The patient has a legal guardian. According to the history presented by the attending physician and nurses caring for the patient, the patient was admitted on 10/26/2023 secondary to intermittent dizziness and falling and injuring his hip. There was report the patient had been off of Namenda and galantamine for 10 days. Reason patient was not taking his dementia medication is not clear. There was also reports that the patient experienced several dog bites by a pit bull 2-1/2 months prior to admission. Patient has received rabies vaccination but apparently missed the last rabies vaccine dose. Patient was reported to become more agitated and confused and therefore neurology consult was obtained. The patient has remained afebrile and basic blood work for CBC and comprehensive metabolic panel and thyroid profile was unrevealing. Noncontrast head CT was obtained and reported to reveal no acute findings. CT of the lumbar spine was obtained and revealed Severe degenerative disc disease at L2-3 and severe facet arthropathy at L5-S1 but no acute findings. The patient is alert and in no apparent distress today. He is sitting at his bedside table eating lunch. Patient denied any complaints this morning. Patient afebrile temperature 97.4. Other vital signs stable. Lumbar puncture under fluoroscopy by radiology performed on 10/28/2023 without issues. CSF WBC 2 RBC 0 PCR results pending. According to the patient's nurse, the caregiver has not brought the patient's galantamine therefore he has been continued on Aricept 10 mg p.o. nightly until patient's home galantamine medication can be resumed. Once galantamine has been resumed Aricept will be discontinued. Past medical history: Senile dementia of the Alzheimer's type Dyslipidemia Ventricular arrhythmia Benign positional vertigo Elevated PSA Essential hypertension Drug allergies: None Current home medications: Namenda 10 mg p.o. twice daily for dementia Galantamine 4 mg p.o. twice daily for dementia Aspirin 81 mg p.o. daily Lipitor 10 mg p.o. q. evening Vitamin D3 25 mcg p.o. daily Claritin 10 mg p.o. daily Meclizine 25 mg p.o. 3 times daily, as needed Metoprolol 25 mg p.o. twice daily [place]-3 fatty acid 1 p.o. twice daily Habits: Patient denies drug use Family history: Unknown Review of Systems General: Reports: 10 or mor e systems reviewed and unremarkable except in HPI and below Skin/Breast: Reports: other (Na il discoloration s uggestive of toena il fungus and poor ly kept nails) Vitals/I&O/Wt Last Vital Signs Temp 97.4 F L 10/29/23 07:50 Pulse 73 10/29/23 11:16 Resp 17 10/29/23 11:16 BP 132/63 10/29/23 11:16 Pulse Ox 97 10/29/23 11:16 O2 Del Method Room Air 10/29/23 11:16 10/28/23 10/29/23 10/29/23 22:59 06:59 14:59 Intake Total 480 / 1480 1000 / 2480 240 / 240 Balance 480 / 1480 1000 / 2480 240 / 240 Weight last 48 hrs Weight 160 lb 1.6 oz Weight 160 lb 1.6 oz Physical Exam 2 Narrative: The patient is currently alert and oriented to person. Patient was able to tell me his complete name and his date of . He knew he was in the hospital. He was initially agitated but after talking to the patient for a few moments he was calm and was answering questions. Patient did not know the year but he stated that he does not keep up with current issues. Head atraumatic. Cranial nerves II through XII grossly intact pupils 4 mm extraocular movements intact motor testing 5/5 bilaterally. There was no obvious signs of ataxia. Lungs revealed no obvious wheezing. Heart reported to be regular rhythm and rate. Extremities were negative for cyanosis or edema but positive for discoloration of some of his toenails suggestive of toenail fungus and poorly kept nails. Data 10/29/23 04:56 10/29/23 04:56 Micro: Microbiology 10/28/23 11:19 Cryptococcal Antigen (CSF) - Final Cerebrospinal Fluid 10/28/23 11:14 Gram Stain - Final Cerebrospinal Fluid A&P Assessment and plan (1) Alzheimer's disease with behavioral disturbance: Impression: 1. Alzheimer's disease with reported agitation (patient reported to be off Namenda and galantamine for 10 days) 2. Tenea pedis 3. Ventricular arrhythmia 4. History of being bitten by a pit bull 2-1/2 months ago with multiple bite and patient reported to undergo rabies vaccination although he missed his last rabies vaccine dose (clinically the patient does not display signs suggestive of rabies) Plan: 1. Restart galantamine 4 mg p.o. twice daily for dementia 2. Restart Namenda 10 mg p.o. twice daily for dementia 3. Since galantamine is not on the formulary I informed the nurse to start Aricept 10 mg p.o. nightly until the patient's home medication of galantamine can be obtained from the family or guardian and brought to the hospital. 4. Seroquel 25 mg p.o. twice daily for agitation 5. Discontinue Aricept once patient has been restarted on galantamine 6. Follow-up results of date pending cerebrospinal fluid results 7. Recommend completing the patient's rabies vaccinations protocol when possible Attestations 2 Medical Necessity Statement*: Patient evaluated by neurology for change in mental status and history of senile dementia with Alzheimer's type and history of being bitten by a pit bull and receiving rabies vaccinations and missing his last dose of rabies vaccination. Coding Level of Care Code 56268 Diagnoses Alzheimer's disease with behavioral disturbance G30.9; F02.818
--- NOTE | 2023-10-29 13:46 | P.PN_ITS ---
Subjective 2 Subjective: seen today doing well less confused Vitals/I&O/Wt Last Vital Signs Temp 97.4 F L 10/29/23 07:50 Pulse 73 10/29/23 11:16 Resp 17 10/29/23 11:16 BP 132/63 10/29/23 11:16 Pulse Ox 97 10/29/23 11:16 O2 Del Method Room Air 10/29/23 11:16 10/28/23 10/29/23 10/29/23 22:59 06:59 14:59 Intake Total 480 / 1480 1000 / 2480 480 / 480 Balance 480 / 1480 1000 / 2480 480 / 480 Weight last 48 hrs Weight 72.62 kg Weight 72.62 kg Physical Exam 2 Narrative: General: Alert oriented to self and place. HEENT: Normocephalic, atraumatic, EOMI, room air Cardio: Regular rate rhythm, normal S1-S2, Respiratory: CTA B/L GI: Abdomen soft, nontender, Extremities: WNL, Data 10/29/23 04:56 10/29/23 04:56 Micro: Microbiology 10/28/23 11:19 Cryptococcal Antigen (CSF) - Final Cerebrospinal Fluid 10/28/23 11:14 Gram Stain - Final Cerebrospinal Fluid A&P Assessment and plan (1) Benign essential HTN: (2) Ventricular arrhythmia: (3) Dyslipidemia: (4) Vertigo: (5) Benign positional vertigo: (6) Alzheimer disease: Plan #Alzheimer's dementia #Hypertension #Noncompliant to medication #Dementia #Status post fall #Chronic vertigo #Expressive aphasia possibly secondary to dementia? #Unable to care for himself at home #Recent dog bite currently on rabies vaccines. ? Consult case management for possible placement ? Initial labs unremarkable ? Continue to monitor in hospital till placed for blood pressure heart rate temperature. Saturating 99% on room air. ? continue galantamine, memantine at this time. ? TSH 0.91 ? hemoglobin A1c 5.8 ? Check head CT - negative for stroke - Check lumbar CT due to complaint of back pain radiating down to legs. No acute pathology. Severe degenerative disc disease at L2-3 and severe facet arthropathy at L5-S1. ? Continue Seroquel at night. Neurology consult appreciated ? CSF ok check for Lyme disease, Derby encephalitis, VDRL. If all negative this is most likely worsening of existing dementia. This could be component of PTSD as well after having a dog bite. I personally do not believe patient has rabies as he has no symptoms of that at this time. CSF study is to come back. ? I will order terbinafine for his tinea pedis. Full code DVT prophylaxis: Lovenox 40 daily Disposition: Awaiting placement Attestations 2 Medical Necessity Statement*: Requires observation stay FOR WORKUP OF AMS Diagnoses Benign essential HTN I10 Ventricular arrhythmia I49.9 Dyslipidemia E78.5 Vertigo R42 Benign positional vertigo H81.10 Alzheimer disease G30.9; F02.80
[2023-10-29] MEDS: atorvastatin 40 mg Tablet 20 MG PO (17:25)
[2023-10-29] MEDS: tamsulosin 0.4 mg Capsule PO (17:26)
[2023-10-29 20:00] VITALS: BP 111/71; PULSE 78; RESP 17; TEMP 36.6; O2SAT 96
[2023-10-29] MEDS: donepezil 5 MG Tablet 10 MG PO (22:37)
[2023-10-30] VITALS: BP 147/86; PULSE 67; RESP 17; TEMP 36.6; O2SAT 98
[2023-10-30 04:00] VITALS: BP 150/84; PULSE 75; RESP 18; TEMP 36.3; O2SAT 100
[2023-10-30 05:23] VITALS: BMI 24.5
[2023-10-30] MEDS: sodium chloride 0.9% 1,000 ML 75 ML IV (05:47)
[2023-10-30 08:39] VITALS: BP 146/94; PULSE 68; RESP 20; TEMP 36.6; O2SAT 99
[2023-10-30] MEDS: terbinafine 1% Cream 15 gm 1 APPLIC TOPICAL (08:54)
[2023-10-30] MEDS: cholecalciferol (vitamin D3) 1,000 unit Tablet 1000 UNIT PO (08:54)
[2023-10-30] MEDS: finasteride 5 mg Tablet PO (08:54)
[2023-10-30] MEDS: metoprolol tartrate 25 mg Tablet PO (08:55)
[2023-10-30] MEDS: quetiapine 25 mg Tablet PO (08:55)
[2023-10-30] MEDS: memantine 5 mg tablet 10 MG PO (08:55)
[2023-10-30] MEDS: omega-3 fatty acids 1,000 mg Capsule 1000 MG PO (08:55)
[2023-10-30 12:20] VITALS: BP 142/95; PULSE 74; RESP 19; TEMP 36.7; O2SAT 99
--- NOTE | 2023-10-30 15:15 | PM.DCS ---
Discharge Providers Date of Admission: 10/26/23 12:40 Date of Discharge: October 30, 2023 Attending Provider at Admission: Sarah Marie MD Attending Provider at Discharge: Sarah Marie MD Primary Care Provider: Sofia Gold MD Diagnoses at Discharge Discharge Diagnosis (1) Benign essential HTN: Status: Acute (2) Ventricular arrhythmia: Status: Acute (3) Dyslipidemia: Status: Acute (4) Vertigo: Status: Acute (5) Benign positional vertigo: Status: Acute (6) Alzheimer disease: Status: Acute Reason for Visit Reason for Visit: fall, hurt left hip Brief History: Josué Jara is a 68 year old male with history of hypertension, BPH, cardiac arrhythmia?, Dementia presented to the hospital after a fall. He was brought in by his neighbor. His neighbor has been taking care of him. He has a power of appliance sales associate as well. Neighbor states patient has not been taking his medications lately. Patient does have a history of chronic vertigo and he is fallen twice in the last 2 days and he landed on his hip currently having difficulty ambulating or bearing any weight. He had a pelvic CT done in the ER which did not show any overt fractures. Patient does have mild expressive aphasia related to dementia however no known history of stroke. Patient is unable to care for himself at home. Initial labs obtained in ER are unremarkable. Patient being admitted for possible placement to halfway. Pt states he stopped taking his meds 10 days prior. He seems to be confused. When asked who was the president, he stated it he will be kissing the camera. He lives with [facility] at home. Its the year 1960. List of all medications in system show aspirin, atorvastatin, finasteride, galantamine, lisinopril, loratadine, meclizine, memantine, Lopressor, tamsulosin. Apparently patient not taking any medications at this time. Hospital Course Hospital Course During hospital stay patient was seen by neurology. LP was done which was unremarkable. CSF cultures and further studies pending at this time. However cell count is 0. I do not suspect infection at this time. Altered mental status has also improved. Patient is back to his baseline. Seroquel was added and. His home medications were restarted. Head CT negative for stroke. Lumbar CT done which showed severe degenerative disc disease at L2-L3. Patient recommended to complete his rabies vaccines at discharge by following up with primary care doctor. Terbinafine topically ordered for tinea pedis. Saw patient this morning he is singing and dancing in his room brushing his hair and said to me check out the slick hairstyle . I called patient's guardian over the phone Mr. Menard and explained to him that patient was improved and doing better. Derian states that he would like to take him home at this time. He will come and pick him up. We will discharge patient home in stable condition. He is to follow-up with cardiology as previously scheduled to get set up with a home event monitor which apparently has been ordered already. He will go home and his existing home medications along with the addition of Seroquel 25 twice daily. Patient recommended to follow-up with his primary care physician as an outpatient. He is stable for discharge. Home health services have been set up for him as per nursing staff. Physical Exam Narrative: General: Alert oriented to self and place. HEENT: Normocephalic, atraumatic, EOMI, room air Cardio: Regular rate rhythm, normal S1-S2, Respiratory: CTA B/L GI: Abdomen soft, nontender, Extremities: WNL, Discharge Data Studies Completed and Pending Completed Studies During Hospitalization Category Date Time Status CT bony pelvis [id number] Stat Cat Scan 10/26/23 09:[address] head wo con* [id number] Stat Cat Scan 10/26/23 13:[address] lumbar spine wo con* [id number] Routine Cat Scan 10/26/23 13:56 Completed FL guided lumbarpunc dx* [id number] Routine Exams 10/28/23 15:31 Completed XR hip BI 2V wo/w pel [id number] Stat Exams 10/26/23 08:40 Completed Pending at discharge Category Date Time Status Blood Cultures ([facility]) Routine Lab 10/27/23 16:42 Results Blood Cultures ([facility]) Routine Lab 10/27/23 16:46 Results CMV PCR [CYTOMEGALOVIRUS DNA, QN, REAL] Routine Lab 10/28/23 11:15 Received CSF Culture & Gram Stain Stat Lab 10/27/23 15:31 Results CSF Culture Stat Lab 10/28/23 11:19 Results Cryptococcal Antigen (CSF) Stat Lab 10/28/23 11:19 Results Herpes Simplex 1&2 IgG AB Routine Lab 10/28/23 13:44 Ordered Lymes Disease Antibodies CSF Stat Lab 10/27/23 15:31 Received Miscellaneous Test Routine Lab 10/28/23 11:15 Received Miscellaneous Test Routine Lab 10/28/23 11:15 Received [facility].Virus IFA CSF Stat Lab 10/27/23 15:31 Received Urine Culture Stat Lab 10/27/23 14:50 Uncollected VDRL on CSF Stat Lab 10/27/23 15:31 Received West Nile Virus AB Panel,CSF Stat Lab 10/28/23 11:15 Received Radiology Impressions Pelvis CT 10/26/23 09:29 IMPRESSION: 1. No acute traumatic bony pathology. 2. Degenerative changes of hips, sacroiliac joints and lower lumbar spine as described. 3. Prostatomegaly with urinary bladder wall thickening consistent with outlet obstruction. Calcifications contiguous with urinary bladder wall possibly representing layering tiny calculi and/or mural calcifications. Lumbar Spine CT 10/26/23 13:56 IMPRESSION: No acute pathology. Severe degenerative disc disease at L2-3 and severe facet arthropathy at L5-S1. Laboratory Results WBC 7.80 10^3/uL (3.29-11.43) 10/29/23 04:56 RBC 4.40 10^6/uL (3.85-5.65) 10/29/23 04:56 Hgb 13.00 g/dL (11.27-16.99) 10/29/23 04:56 Hct 39.4 % (37-53) 10/29/23 04:56 MCV 89.5 fl (82-101) 10/29/23 04:56 MCH 29.5 pg (27-33) 10/29/23 04:56 MCHC 33.0 g/dL (30-55) 10/29/23 04:56 RDW 13.2 % (12.1-15.1) 10/29/23 04:56 Plt Count 218 10^3/cmm (157-399) 10/29/23 04:56 MPV 11.0 fL (7.4-10.4) H 10/29/23 04:56 Neut % (Auto) 70.2 % 10/29/23 04:56 Lymph % (Auto) 17.2 % 10/29/23 04:56 [place] % (Auto) 10.5 % 10/29/23 04:56 Eos % (Auto) 1.2 % 10/29/23 04:56 Baso % (Auto) 0.5 % 10/29/23 04:56 Neut # (Auto) 5.48 10^3/uL (1.8-7.7) 10/29/23 04:56 Lymph # (Auto) 1.3 10^3/uL (0.8-4.8) 10/29/23 04:56 Sierra # (Auto) 0.8 10^3/uL (0.2-0.9) 10/29/23 04:56 Eos # (Auto) 0.1 10^3/uL (0.0-0.8) 10/29/23 04:56 Baso # (Auto) 0.0 10^3/uL (0.0-0.1) 10/29/23 04:56 Nucleated RBC % (auto) 0 % 10/29/23 04:56 Nucleated RBCs # 0.0 /100WBC 10/29/23 04:56 Sodium 141 mmol/L (136-145) 10/29/23 04:56 Potassium 3.9 mmol/L (3.5-5.1) 10/29/23 04:56 Chloride 107 mmol/L (98-107) 10/29/23 04:56 Carbon Dioxide 23 mmol/L (22-29) 10/29/23 04:56 Anion Gap 14.9 (5-19) 10/29/23 04:56 BUN 7 mg/dL (8-23) L 10/29/23 04:56 Creatinine 0.8 mg/dL (0.7-1.2) 10/29/23 04:56 GFR Calculation 96.7 mL/min (90-130) 10/29/23 04:56 Glucose 120 mg/dL (65-115) H 10/29/23 04:56 Estimat Average Glucose 120 10/26/23 12:23 Hemoglobin A1c 5.8 % (4.0-6.0) 10/26/23 12:23 Calculated Osmolality 291 mOsm/kg (285-295) 10/29/23 04:56 Calcium 8.7 mg/dL (8.5-10.5) 10/29/23 04:56 Phosphorus 2.3 mg/dL (2.5-4.5) L 10/27/23 06:17 Magnesium 2.0 mg/dL (1.7-2.3) 10/27/23 06:17 Total Bilirubin 1.2 mg/dL (0.15-1.2) 10/27/23 06:17 AST 12 U/L (0-40) 10/27/23 06:17 ALT 10 U/L (0-41) 10/27/23 06:17 Alkaline Phosphatase 64 U/L (40-130) 10/27/23 06:17 Ammonia 37 umol/L (16-60) 10/27/23 15:50 Total Protein 5.9 g/dL (6.6-8.7) L D 10/27/23 06:17 Albumin 3.6 g/dL (3.5-5.2) 10/27/23 06:17 Globulin 2.3 g/dL (1.3-4.6) 10/27/23 06:17 Vitamin B12 353 pg/mL (232-1245) 10/27/23 06:17 TSH 0.91 uIU/mL (0.27-4.20) 10/26/23 12:23 Urine Color Light yellow (Yellow) 10/27/23 18:35 Urine Appearance Clear (CLEAR) 10/27/23 18:35 Urine pH 5 (5-7) 10/27/23 18:35 Ur Specific [employer] 1.005 (1.005-1.030) 10/27/23 18:35 Urine Protein Neg (Negative) 10/27/23 18:35 Urine Glucose (UA) Norm (Normal) 10/27/23 18:35 Urine Ketones Negative (Negative) 10/27/23 18:35 Urine Blood Neg (Negative) 10/27/23 18:35 Urine Nitrate Negative (Negative) 10/27/23 18:35 Urine Bilirubin Neg (Negative) 10/27/23 18:35 Urine Urobilinogen Norm mg/dL (Negative) 10/27/23 18:35 Ur Leukocyte Esterase Negative (Negative) 10/27/23 18:35 Urine RBC 0-4 /hpf (0-2) H 10/27/23 18:35 Urine WBC 0-4 /hpf (0-5) H 10/27/23 18:35 Ur Squamous Epith Cells 0-4 /hpf (0-5) H 10/27/23 18:35 Amorphous Sediment Not Reportable 10/27/23 18:35 Urine Bacteria Trace /hpf (NONE) 10/27/23 18:35 CSF Appearance Clear (CLEAR) 10/28/23 11:14 CSF Color Colorless (COLORLESS) 10/28/23 11:14 CSF Specific [employer] 1.005 10/28/23 11:14 CSF WBC 2 /uL (0-5) 10/28/23 11:14 CSF RBC 0 10^3/uL (0-0) 10/28/23 11:14 CSF Mononuclear # Auto 0.001 10^3/uL (50-90) L 10/28/23 11:14 CSF Mononuclear WBCs % 50 % (50-90) 10/28/23 11:14 CSF Polynuclear WBCs # 0.001 10^3/uL (0-10) 10/28/23 11:14 CSF Polynuclear WBCs % 50 % (0-10) H 10/28/23 11:14 Vitals Last Vital Signs Temp 98.0 F 10/30/23 12:20 Pulse 74 10/30/23 12:20 Resp 19 H 10/30/23 12:20 BP 142/95 10/30/23 12:20 Pulse Ox 99 10/30/23 12:20 O2 Del Method Room Air 10/30/23 12:20 Discharge Plan Discharge Patient Disposition: Home Health Service Condition: Stable Prescriptions: New quetiapine 25 mg Tablet 25 mg PO BID Qty: 60 0RF terbinafine HCl 1 % Cream 1 applic topical BID 14 Days Qty: 30 0RF tamsulosin 0.4 mg Capsule 0.4 mg PO QPM Qty: 30 0RF finasteride 5 mg Tablet 5 mg PO DAILY Qty: 30 0RF Continued meclizine 25 mg tablet 25 mg PO TID PRN (Reason: Nausea) aspirin 81 mg tablet,delayed release (DR/EC) 81 mg PO DAILY loratadine 10 mg tablet 10 mg PO DAILY galantamine 4 mg tablet 4 mg PO BID Qty: 60 3RF Rx Instructions: administer with AM and PM meals; watch for nausea memantine 10 mg tablet 10 mg PO BID Qty: 60 3RF metoprolol tartrate 25 mg tablet 25 mg PO BID Qty: 180 3RF omega 8-vno-qes-fish oil [Fish Oil] 300-1,000 mg Capsule 1 cap PO BID atorvastatin 20 mg Tablet 10 mg PO QPM cholecalciferol (vitamin D3) 25 mcg (1,000 unit) Tablet 25 mcg PO DAILY Discharge Orders: Discharge Order (Routine); Ordered 10/30/23 Ordered By: Sarah Marie Referrals: Sofia Gold MD [Primary Care Provider] - 4-7 days (We have notified your physician's clinic of the need for a follow-up appointment to be scheduled. If you have not heard from them within the next 2 business days, please call them directly. ) Discharge Diet: Regular Discharge Activity: Resume usual activity Patient Instructions: Finasteride (By mouth), Terbinafine (On the skin), Tamsulosin (By mouth) (Flomax), Quetiapine (By mouth), Alzheimer Disease (DC), Opioid Safety Discharge Attestations Time Spent in Discharge Care*: greater than 30 min Quality Metrics Clinical Quality Measures [ No reported AMI, CVA or VTE this stay] Coding Level of Care Code Acute Code for Chg Fwd Diagnoses Benign essential HTN I10 Ventricular arrhythmia I49.9 Dyslipidemia E78.5 Vertigo R42 Benign positional vertigo H81.10 Alzheimer disease G30.9; F02.80
[2023-10-30 17:24] VITALS: BP 162/99; PULSE 73; RESP 19; TEMP 36.8; O2SAT 98
[2023-10-30 18:18] VITALS: BP 162/99; PULSE 73; RESP 17; TEMP 36.8; O2SAT 98
[2023-10-31 04:20] LABS: CMV DNA By PCR NOT DETECTED; CMV DNA, QN PCR NOT DETECTED Log IU/mL; SOURCE CEREBROSPINAL FLUID
--- NOTE | 2023-10-31 15:14 | PC.SOCIAL ---
Rabies Vaccines Per review of vaccinations, patient has received 3 doses of rabies vaccine at [facility]. Called IT for clarification of location, Dawson reports that they were administered in the Infusion Center. Spoke with Heather, she states that he was due for day 15 on 10/13. She states that they will need a new order because it has been so far out. Called and spoke with Siobhan at Dr. Lopez's office and explained the situation. Requested that order for vaccine be sent to infusion center so that they can schedule patient.
[2023-11-01] LABS: VDRL on CSF NON-REACTIVE
[2023-11-01 19:44] LABS: Lyme Disease AB (IGG),IBL NO BANDS DETECTED; Lyme Disease AB (IGM), IBL NO BANDS DETECTED
[2023-11-01 20:34] LABS: St. Louis Enceph.Virus IGG CSF <1:1; St. Louis Enceph.Virus IGM CSF <1:1
[2023-11-03 16:55] LABS: West Nile Virus AB (IGG) <1.30 index; West Nile Virus AB (IGM) <0.90 index
== END 2023-10-30 18:25 | disposition home health service (06) ==
LOC: ER 13:40 → MEDSURG 14:04
PROVIDERS: Family Medicine; Admitting Provider Internal Medicine; Emergency Provider Family Medicine; PCP Specialist; Visit Provider Internal Medicine
DX: I49.9 Cardiac arrhythmia, unspecified (principal); I10 Essential (primary) hypertension; E78.5 Hyperlipidemia, unspecified; H81.10 Benign paroxysmal vertigo, unspecified ear; G30.9 Alzheimer's disease, unspecified; F02.80 Dementia in other diseases classified elsewhere, unspecified severity, without behavioral disturbance, psychotic disturbance, mood disturbance, and anxiety; N40.0 Benign prostatic hyperplasia without lower urinary tract symptoms; Z91.81 History of falling; Z91.148 Patient's other noncompliance with medication regimen for other reason; M47.896 Other spondylosis, lumbar region; R47.01 Aphasia; T14.8XXA Other injury of unspecified body region, initial encounter; W54.0XXA Bitten by dog, initial encounter
CPT/HCPCS: 36415; 62328; 70450; 72131; 72192; 73521; 80048; 80053; 80503; 81001; 81003; 82140; 82607; 83036; 83735; 84100; 84315; 84443; 85025; 86592; 86617; 86653; 86788; 86789; 87040; 87070; 87075; 87205; 87327; 87496; 89050; 96372; 97161; 97165; 99285; G0378; J1650; J7030

== ENCOUNTER → 2023-11-03 12:04 | Outpatient (BNVA) | payer OTHER, SELFPAY | PROVIDERS: PCP Specialist; Visit Provider Specialist | DX: Z09 Encounter for follow-up examination after completed treatment for conditions other than malignant neoplasm (principal); G30.9 Alzheimer's disease, unspecified; F02.818 Dementia in other diseases classified elsewhere, unspecified severity, with other behavioral disturbance; R00.1 Bradycardia, unspecified; I49.1 Atrial premature depolarization; I49.3 Ventricular premature depolarization; I48.91 Unspecified atrial fibrillation | CPT/HCPCS: 96116; 93225; 99215 ==

== ENCOUNTER 2023-11-23 08:43 | Outpatient (CLI) | payer OTHER, SELFPAY ==
--- NOTE | 2023-11-23 | ECG_ITS ---
[facility] Test Date: 2023-11-23 Pat Name: Josué Jara Department: Room: Gender: Male Blind Teacher: : 1955 Requested By: Mary Vick Order Number: [id number] Kelly MD: Lee Hicks M.D. Interpretive Statements NAME OF STUDY: LEXISCAN SESTAMIBI STRESS TEST INDICATION: [Ventricular Arrhythmia] Procedure: At the baseline, the blood pressure was 120/78 mmHg with a heart rate of 70 bpm. The electrocardiogram showed normal sinus rhythm, normal axis with normal ST and T's. The Lexiscan was infused over a period of 20 seconds. A total of 0.4 mg of Lexiscan was infused. The stress phase was continued for a total of 5 minutes. Heart rate was at the end of stress phase was 93 bpm and a blood pressure of 111/76 mmHg. The EKG at the peak infusion revealed normal sinus rhythm with no significant ST-T wave changes. Sestamibi was injected 20 seconds after the Lexiscan infusion. PVCs are seen. Blood pressure at the end of recovery phase was 110/63 mmHg with a heart rate of 92 bpm. PVCs seen. Conclusion: 1. Normal EKG response to Lexiscan infusion 2. No Lexiscan induced chest pain. Frequent PVCs seen. 3. Normal blood pressure and heart rate response. 4. Sestamibi/sestamibi perfusion scan pending; see separate report. Electronically Signed On 11-27-2023 12:18:31 BILLET EXAMINER by Lee Hicks M.D. [email or web address]
[2023-11-23 09:18] VITALS: BMI 25.1
--- NOTE | 2023-11-23 09:31 | NMCV_ITS ---
NM elizabet perf SPECT r/s* [id number] Josué Jara Age: 68 Gender: M : 1955 Exam Date: 11/23/2023 09:58 Ordering Phys: Mary Vick MD ([email or web address]) Technologist: DAISY Sheldon Exam Location: [facility] Indications: CORONARY ANGIOPLASTY STATUS STRESS TEST Please see separate stress test report in [facility] for full findings IMAGE PROTOCOL Rest/Stress 1 Lexiscan Day Radiopharmaceutical Dose (mCi) Administration Site Administered by Rest: Tc-99m 11.0 IV DAISY Cash Sestamibi Stress:Tc-99m 32.8 IV DAISY Cash Sestamibi Rest: 23-Nov-2023 60 Discovery 630 Stress: 23-Nov-2023 30 Discovery 630 0.4mg Lexiscan. Supine position only as patient was unable to lay prone. SPECT RESULTS Technical Quality: Good Raw Data Analysis: Normal Image Corrections: Patient motion artifact - motion correction applied. Patient has dementia and has difficulty lying still. Summed Stress Score: 3 Summed Rest Score: 6 Summed Difference Score: 2 PERFUSION FINDINGS Small sized area of reduced radiotracer uptake is seen in inferior and apical inferior jaffe. This improves on stress images. This is consistent with attenuation artifact in RCA territory. No evidence of ischemia FUNCTIONAL RESULTS (calculated via Gated SPECT) Stress Image LV EF (%): 54 Stress EDV (mL):76 TID: 0.58 Stress ESV (mL):35 FUNCTIONAL FINDINGS: There is normal left ventricular systolic function. IMPRESSIONS 1. Attenuation artifact seen in the inferior wall. No evidence of ischemia 2. LV systolic function is normal Lee Hicks MD (Electronically Signed) Final Date: 26 November 2023 13:40 S
[2023-11-23] MEDS: regadenoson 0.4 Mg/5 ml Syringe IVP (11:07)
[2023-11-23 11:57] VITALS: BP 112/65; PULSE 62
== END 2023-11-23 08:44 | disposition home or self-care (01) ==
PROVIDERS: PCP Nurse Practitioner Family; Visit Provider Internal Medicine Cardiovascular Disease
DX: I49.8 Other specified cardiac arrhythmias (principal); I49.3 Ventricular premature depolarization; Z98.61 Coronary angioplasty status
CPT/HCPCS: 36415; 78452; 93017; 96374; A9500; J2785

== ENCOUNTER → 2023-12-06 11:25 | Outpatient (BNVA) | payer OTHER, SELFPAY | PROVIDERS: PCP Nurse Practitioner Family; Visit Provider Podiatrist Foot & Ankle Surgery | DX: L60.8 Other nail disorders (principal); Z51.89 Encounter for other specified aftercare; L97.522 Non-pressure chronic ulcer of other part of left foot with fat layer exposed; L84 Corns and callosities; B35.3 Tinea pedis | CPT/HCPCS: 99213 ==

== ENCOUNTER 2024-02-17 09:54 | Oncology outpatient (recurring) (ONCR) | payer OTHER, SELFPAY ==
--- NOTE | 2024-02-17 10:11 | USCV_ITS ---
Josué Jara Age: 69 Gender: M : 1955 Exam Date: 02/17/2024 10:24 Ordering Phys: Seema Zee SUPERVISOR CRACK OFF SUPERVISOR CRACK OFF Technologist: CHILO Exam Location: [facility] [place] Indication: AAA SCREENING HISTORY: Diameter (cm) AP x Transverse x Length Velocity (cm/s) Waveform Prox Aorta: 2.20 x 2.10 x 74.00 Triphasic Mid Aorta: 2.10 x 1.90 x 75.10 Triphasic Distal Aorta: 1.60 x 1.70 x 65.60 Triphasic Right Iliac Prox: 0.80 x 0.80 x 57.80 Triphasic Left Iliac Prox: 0.70 x 0.60 x 80.90 Triphasic Stent Prox Landing x x Aneurysmal Sac Max x x Lt Lat Sac Dim Rt Lat Sac Dim Stent Dist Landing x x Right Iliac Stent x x Left Iliac Stent x x Right Renal Art Left Renal Art FINDINGS: Comparison: none available. No evidence of abdominal aortic or bilateral iliac aneurysm. Ectatic abdominal aorta with evidence of atherosclerotic plaque noted. CONCLUSIONS No evidence of abdominal aortic or bilateral iliac aneurysm. Dr. Janelle Sheriff DO (Electronically Signed) Final Date: 17 February 2024 12:22 S
== END 2024-02-21 23:59 | disposition home or self-care (01) ==
LOC: ONCMED 09:55 → RAD 10:00 → ONCMED 03-12 14:50
PROVIDERS: PCP Psychiatry & Neurology Neurology; Visit Provider Family Medicine
DX: Z13.89 Encounter for screening for other disorder (principal); I70.0 Atherosclerosis of aorta
CPT/HCPCS: 76706

== ENCOUNTER → 2024-03-15 15:02 | Outpatient (BNVA) | payer OTHER, SELFPAY | PROVIDERS: PCP Psychiatry & Neurology Neurology; Visit Provider Podiatrist Foot & Ankle Surgery | DX: B35.1 Tinea unguium (principal); L60.3 Nail dystrophy; L60.0 Ingrowing nail | CPT/HCPCS: 11750; A6219 ==

== ENCOUNTER → 2024-03-29 14:08 | Outpatient (BNVA) | payer OTHER, SELFPAY | PROVIDERS: PCP Psychiatry & Neurology Neurology; Visit Provider Podiatrist Foot & Ankle Surgery | DX: L60.3 Nail dystrophy (principal); L60.0 Ingrowing nail | CPT/HCPCS: 99213 ==

== ENCOUNTER 2024-05-05 10:01 | Emergency (ER) | payer OTHER, MEDICARE, SELFPAY ==
[2024-05-05 10:09] VITALS: BP 111/78; PULSE 74; RESP 17; TEMP 36.9; O2SAT 98; BMI 24.3
--- NOTE | 2024-05-05 10:26 | CTR_ITS ---
PROCEDURE INFORMATION: Exam: CT Head Without Contrast Exam date and time: 05/05/2024 10:37 AM Age: 69 years old Clinical indication: Injury or trauma; Fall; Blunt trauma (contusions or hematomas); Altered mental status/memory loss; Additional info: Confusion S/P fall yesterday TECHNIQUE: Imaging protocol: Computed tomography of the head without contrast. Radiation optimization: All CT scans at this facility use at least one of these dose optimization techniques: automated exposure control; mA and/or kV adjustment per patient size (includes targeted exams where dose is matched to clinical indication); or iterative reconstruction. COMPARISON: CT head wo con* [id number] 10/26/2023 1:58 PM RADIATION DOSE METRICS: Total DLP (mGy-cm): 905.68 FINDINGS: Brain: Normal. No hemorrhage. Unremarkable white matter. No mass effect. Cerebral ventricles: No ventriculomegaly. Paranasal sinuses: Visualized sinuses are unremarkable. No fluid levels. Mastoid air cells: Visualized mastoid air cells are well aerated. Orbital cavities: Post bilateral cataract surgery. Bones: Unremarkable. No acute fracture. Soft tissues: Unremarkable. CT/CT head wo con* [id number] IMPRESSION: No intracranial posttraumatic changes.
--- NOTE | 2024-05-05 10:27 | ED_ITS ---
HPI - Wound/Laceration General: Chief Complaint: Wound/Laceration Stated Complaint: Fall chin lac Time Seen by Provider: 05/05/24 10:07 History of Present Illness: 69-year-old male presents the emergency department chief complaint of laceration patient apparently had a fall yesterday patient does not recall the fall there is concerns of possible dementia patient presents to the ER with a delayed laceration he sustained to his chin to due to unknown reasons patient reports he sustained no other associated injuries patient endorses he is unsure when his last tetanus shot was. Patient presents to the emergency department for further assessment and management. Associated symptoms: Denies chills, fever(s), nausea or vomiting Review of Systems General: Reports: 10 or more systems reviewed and unremarkable except in HPI and below Const: Denies: fever(s), chills, fatigue or malaise Eyes: Denies: change in vision or blurry vision Card: Denies: chest pain or palpitations Resp: Denies: dyspnea or productive cough GI: Denies: abdominal pain, nausea or vomiting : Denies: flank pain Musc: Denies: extremity pain or extremity swelling Skin/Breast: Reports: other (Laceration wound noted to the chin.); Denies: rash or pruritus Neuro: Reports: confusion; Denies: headache(s) Psych: Denies: anxiety or depression Jerrell/Lymph: Denies: easy bleeding All/Imm: Denies: urticaria, throat swelling or facial swelling PFSH ED PFSH: Medical History Essential (primary) hypertension Cardiac arrhythmia, unspecified Benign prostatic hyperplasia without lower urinary tract symptoms Elevated PSA Mildly elevated PSA with negative TRUS/biopsy in 2010. Large benign feeling AIDE. Surgical History History of ankle surgery History of surgery on arm Family History Father , AT AGE 67 Cancer Mother , AT AGE 72 No problems noted. Denies family history of Diabetes CAD (coronary artery disease) Clotting disorder Dementia Chronic kidney disease (CKD) Suicide Anesthesia complication Bleeding disorder Lung disease Stroke Social History Smoking and tobacco/nicotine status: never used tobacco/nicotine Alcohol intake: never Substance/Drug Use: never Marital status: / Current occupational status: retired Physical Exam Const: COMMON NORMALS: no acute distress (patient appears to be somewhat confused no focal neurodeficits appreci), patient oriented x3 and healthy appearing HENMT: COMMON NORMALS: normocephalic and atraumatic HEAD & SCALP: normocephalic and atraumatic Eye: COMMON NORMALS: Equal, round and reactive pupils present and EOMs intact bilaterally PUPIL: Yes Equal, round and reactive pupils present Neck/C-Spine: COMMON NORMALS: full ROM, supple and no JVD Lymph: LYMPHATIC: no lymphadenopathy noted Chest: COMMONS NORMALS: normal inspection of the chest and normal palpation of entire chest wall Resp: COMMON NORMALS: normal respiratory effort, No retractions and clear to auscultation bilaterally EFFORT & INSPECTION: Yes able to speak in complete sentences and Yes symmetric chest movement AUSCULTATION: clear to auscultation bilaterally Cardio: COMMON NORMALS: no JVD, regular rate and regular rhythm RATE: regular rate RHYTHM: regular rhythm GI: COMMON NORMALS: Normal to inspection, nondistended, normoactive bowel sounds present, Soft to palpation and non-tender INSPECTION: Yes normal to inspection PALPATION: Yes Soft to palpation : COMMON NORMALS: Yes no CVA tenderness BLADDER/KIDNEY EXAM: Yes no CVA tenderness Back/Pelvis: COMMON NORMALS: no CVA tenderness Extremity: COMMON NORMALS: normal to inspection and full ROM Neuro: COMMON NORMALS: patient oriented x3, CN's II-XII intact bilaterally, moves all extremities and no focal motor deficits Psych: COMMON NORMALS: mental status grossly normal, Normal thought process present, cooperative and normal affect THOUGHT PROCESS: Normal thought proce ss present Skin: COMMON NORMALS: negative for no rashes or lesions noted (What appears to be old wound dehisced laceration appreciated the chin appea) GENERAL SKIN EXAM: rashes and/or lesions noted (What appears to be old wound dehisced laceration appreciated the chin appea) Course Vital Signs: Vital signs: Vital Signs Temperature 98.4 F 05/05/24 10:09 Pulse Rate 74 05/05/24 10:09 Respiratory Rate 17 05/05/24 10:09 Blood Pressure 111/78 05/05/24 10:09 Pulse Oximetry 98 05/05/24 10:09 Oxygen Delivery Me thod Room Air 05/05/24 10:09 MDM - Wound/Laceration Medical Decision Making Due to patient's symptoms and condition basic wound care will be applied to the chin patient undergo a CT imaging of the head without contrast to further rule out underlying concerns of head injury as well as tetanus immunization will be updated. Lab Data Radiology Impressions Head CT 05/05/24 10:26 IMPRESSION: No intracranial posttraumatic changes. All radiology interpretation(s) finalized by discharge Discharge Plan Discharge Patient Disposition: Home Clinical Impression: Laceration of chin Qualifiers: Encounter type: sequela Qualified Code(s): S01.81XS - Laceration without foreign body of other part of head, sequela Condition: Stable Prescriptions: No Action meclizine 25 mg tablet 25 mg PO TID PRN (Reason: Nausea) aspirin 81 mg tablet,delayed release (DR/EC) 81 mg PO DAILY loratadine 10 mg tablet 10 mg PO DAILY galantamine 4 mg tablet 4 mg PO BID Qty: 60 3RF Rx Instructions: administer with AM and PM meals; watch for nausea memantine 10 mg tablet 10 mg PO BID Qty: 60 3RF metoprolol tartrate 25 mg tablet 25 mg PO BID Qty: 180 3RF omega 5-wgx-pbx-fish oil [Fish Oil] 300-1,000 mg Capsule 1 cap PO BID quetiapine 25 mg Tablet 25 mg PO BID Qty: 60 0RF tamsulosin 0.4 mg Capsule 0.4 mg PO QPM Qty: 30 0RF finasteride 5 mg Tablet 5 mg PO DAILY Qty: 30 0RF atorvastatin 20 mg Tablet 10 mg PO QPM cholecalciferol (vitamin D3) 25 mcg (1,000 unit) Tablet 25 mcg PO DAILY Discharge Orders: Discharge ED (Routine); Ordered 05/05/24 Ordered By: Bob Figueroa Referrals: Seema Zee FNP [Primary Care Provider] - 4-7 days Discharge Diet: Advance as tolerated Patient Instructions: Laceration (DC), Acute Wound Care (ED), Chronic Wound Care (ED), Chronic Wounds (ED) Activity Restrictions/Additional Instructions: Due to your laceration being greater than 18 hours old you it cannot be stitched or staple basic wound care to the affected area until it completely heals keep the wound clean dry intact and cover with triple biotic ointment a referral for web content & social media manager has been placed for your request for further options and outpatient availability of resources. Please return the interim if any of your symptoms persist or worse. Coding Level of Care Code ED Rod Straightener for Cierra Mao
[2024-05-05] MEDS: tetanus-dipt-pertussis 0.5 mL SDV IM (10:57)
--- NOTE | 2024-05-05 10:58 | PC.NURSE ---
per legal guardian at bedside pt lives alone and has been attempting to run off, states pt has dementia and sees Seema Zee for PCP, states Seroquel was increased yesterday from 25mg BID to 50mg BID. legal guardian has concern of pt living alone, this nurse informed Dr. Figueroa of concerns.
--- NOTE | 2024-05-05 11:00 | PC.NURSE ---
pt wound cleaned with normal saline, no foreign objects noted, clean and dry. applied Telfa non-stick dressing, gauze, and wrapped with coban
[2024-05-05 12:01] VITALS: RESP 15
--- NOTE | 2024-05-08 09:57 | PC.SOCIAL ---
HH order sent to [facility] and Rika at [place].
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
--- NOTE | 2024-05-08 14:44 | PC.SOCIAL ---
MAX Price from [facility] calls and reports that they are unable to accept patient. She states that they have had patient on services in the past and he is not appropriate for HH. She also reports he does not have a caregiver.
== END 2024-05-05 12:12 | disposition home or self-care (01) ==
PROVIDERS: Emergency Provider Emergency Medicine; PCP Nurse Practitioner Family
DX: S01.81XA Laceration without foreign body of other part of head, initial encounter (principal); W19.XXXA Unspecified fall, initial encounter; F03.90 Unspecified dementia, unspecified severity, without behavioral disturbance, psychotic disturbance, mood disturbance, and anxiety; I10 Essential (primary) hypertension; Z79.82 Long term (current) use of aspirin; Z23 Encounter for immunization
CPT/HCPCS: 70450; 90715; 99284

== ENCOUNTER 2024-07-02 10:34 | Emergency (ER) | payer OTHER, MEDICARE, SELFPAY ==
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
--- NOTE | 2024-07-02 11:05 | PC.PHAR ---
[facility] 07/02/24 11:04am
--- NOTE | 2024-07-02 11:11 | ECG_ITS ---
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 Measurements Intervals [place] Rate: 51 P: 60 DE: 145 QRS: 75 QRSD: 109 T: 68 QT: 445 QTc: 410 Interpretive Statements SINUS BRADYCARDIA Compared to ECG 05/07/2024 11:18:05 Sinus rhythm no longer present Intraventricular conduction delay no longer present Electronically Signed On 07-03-2024 7:51:49 CDT by Lee Hicks M.D. [id number]
[2024-07-02 11:38] LABS: Basophils % 0.3 %; Eosinophils % 0.4 %; Hematocrit 44.9 % (37-53); Lymphocytes # 1.5 10^3/uL (0.8-4.8); Lymphocytes % 14.3 %; Mean Corpuscular HGB Conc 33.4 g/dL (30-55); Mean Corpuscular Hemoglobin 30.2 pg (27-33); Mean Corpuscular Volume 90.5 fl (82-101); Mean Platelet Volume 11.7 fL (7.4-10.4); Monocytes # 0.9 10^3/uL (0.2-0.9); Monocytes % 8.2 %; Neutrophils # 8.18 10^3/uL (1.8-7.7); Neutrophils % 76.6 %; Nucleated Red Blood Cells % 0 %; Platelet Count 171 10^3/cmm (157-399); Red Blood Count 4.96 10^6/uL (3.85-5.65); Red Cell Distribution Width 12.6 % (12.1-15.1); White Blood Count 10.66 10^3/uL (3.29-11.43)
[2024-07-02 11:53] LABS: SARS Covid-2 Antigen negative (Negative)
[2024-07-02 11:57] LABS: RSV Transfer Patient (ED) Negative (Negative)
[2024-07-02 12:04] LABS: Influenza A by IFA Negative (Negative); Influenza B by IFA Negative (Negative)
[2024-07-02 12:09] LABS: Alanine Aminotransferase 31 U/L (0-41); Albumin Level 4.5 g/dL (3.5-5.2); Alkaline Phosphatase 75 U/L (40-130); Anion Gap 15.2 (5-19); Aspartate Amino Transferase 23 U/L (0-40); Blood Urea Nitrogen 19 mg/dL (8-23); Calcium 9.2 mg/dL (8.5-10.5); Carbon Dioxide 25 mmol/L (22-29); Chloride 103 mmol/L (98-107); Globulin 2.9 g/dL (1.3-4.6); Glomerular Filtration Rate 96.4 mL/min (90-130); Glucose 103 mg/dL (65-115); Osmolality Calculated 291 mOsm/kg (285-295); Potassium 4.2 mmol/L (3.5-5.1); Sodium 139 mmol/L (136-145); Thyroid Stimulating Hormone 0.66 uIU/mL (0.27-4.20); Total Bilirubin 0.9 mg/dL (0.15-1.2); Total Protein 7.4 g/dL (6.6-8.7)
[2024-07-02 12:11] LABS: Acetaminophen < 5.0 ug/mL (10-30); Alcohol Level < 10 mg/dL (0-10); Salicylate < 0.3 mg/dL (3-10)
[2024-07-02 13:14] VITALS: BP 117/74; PULSE 53; TEMP 36.7; O2SAT 95
[2024-07-02 14:31] LABS: Charge for UA Resulting for Rev
[2024-07-02 14:35] LABS: Bilirubin Urine Negative (Negative); Blood Urine Negative (Negative); Glucose Urine UA Negative (Normal); Ketones Urine Negative (Negative); Leukocyte Esterase Urine Negative (Negative); Nitrate Urine Negative (Negative); Protein Urine Negative (Negative); Specific Gravity, Urine 1.008 (1.005-1.030); Urine Appearance Clear (CLEAR); Urine Color Yellow (Yellow); pH Urine 6.5 (5-7)
[2024-07-02 14:40] LABS: Bacteria Urine None Seen /hpf; RBC Urine 0-2 /hpf (0-2); Squamous Epithelial Cell Urine 0-5 /hpf (0-5); WBC Urine 0-5 /hpf (0-5)
[2024-07-02 14:44] LABS: Amphetamines Screen Urine Negative (Negative); Barbiturates Screen Urine Negative (Negative); Benzodiazepines Screen Urine Negative (Negative); Cocaine Screen Urine Negative (Negative); Opiate Screen Urine Negative (Negative); PCP Screen Urine Negative (Negative); THC Screen Urine Negative (Negative)
--- NOTE | 2024-07-02 15:18 | PC.SOCIAL ---
Spoke with patient's DPSTACY who states that he prefers for patient to go to [facility]. Reached out to [facility] in [place], they do not have a jony-psych unit; and they are the only hospital in [place]. Called [facility]. They have a [place] and [place] location, both are approximately [place] from [place]. Updated ADONAY Menard. He states that he would prefer [place] if able, as his daughter lives there and it is closer to him. Called referral line back and connected [facility] Delatorre for doc-doc. Asked [facility] to fax referral.
== END 2024-07-02 18:57 ==
PROVIDERS: Emergency Provider Physician Assistant; PCP Nurse Practitioner Family
DX: G30.9 Alzheimer's disease, unspecified (principal); F02.811 Dementia in other diseases classified elsewhere, unspecified severity, with agitation; I10 Essential (primary) hypertension; Z87.891 Personal history of nicotine dependence; Z11.52 Encounter for screening for COVID-19
CPT/HCPCS: 36415; 80053; 80306; 80307; 81003; 81015; 84443; 85025; 87426; 87804; 87899; 93005; 99285

== ENCOUNTER 2024-07-22 10:05 | Emergency (ER) | payer OTHER, MEDICARE, SELFPAY ==
[2024-07-22 10:06] VITALS: BP 141/97; PULSE 75; RESP 20; TEMP 36.8; O2SAT 98; BMI 23.6
--- NOTE | 2024-07-22 10:15 | ED_ITS ---
HPI - General Adult 2 General: Chief complaint: Altered Mental Status Stated complaint: AMS; anxiety Time Seen by Provider: 07/22/24 10:07 Source: patient and EMS Mode of arrival: EMS Limitations: altered mental status History of Present Illness: 69-year-old male with a history of demen tia patient currently lives alone he had been in a dispute with his caregiver from what I gather from EMS. Patient was found today wandering in a parking lot very confused and anxious PD had called EMS who brought patient here. Patient is able to tell me his name but is quite confused. He has no other complaints this time Related Data Home Medications Medication Instructions Recorded Confirmed meclizine 25 mg tablet 25 mg PO TID PRN Nausea 04/28/21 07/02/24 aspirin 81 mg tablet,delayed 81 mg PO DAILY 10/05/22 07/02/24 release loratadine 10 mg tablet 10 mg PO DAILY 10/05/22 07/02/24 omega 5-vdd-erm-fish oil 300 1 cap PO BID 10/29/22 07/02/24 mg-1,000 mg capsule (Fish Oil) atorvastatin 20 mg tablet 10 mg PO QPM 10/13/23 07/02/24 cholecalciferol (vitamin D3) 25 25 mcg PO DAILY 10/13/23 07/02/24 mcg (1,000 unit) tablet azelastine 137 mcg (0.1 %) nasal 2 spray intranasal BID 07/02/24 07/02/24 spray divalproex 500 mg tablet,extended 500 mg PO BEDTIME 07/02/24 07/02/24 release 24 hr fluticasone propionate 50 2 spray intranasal DAILY 07/02/24 07/02/24 mcg/actuation nasal spray,suspension food supplemt, lactose-reduced 1 ea PO DAILY 07/02/24 07/02/24 galantamine 12 mg tablet 12 mg PO BID 07/02/24 07/02/24 lisinopril 20 mg tablet 10 mg PO DAILY 07/02/24 07/02/24 paroxetine HCl 10 mg tablet 10 mg PO DAILY 07/02/24 07/02/24 quetiapine 100 mg tablet 50 mg PO BID 07/02/24 07/02/24 terbinafine HCl 1 % topical cream 1 applic topical BID 07/02/24 07/02/24 Previous Rx's Medication Instructions Recorded metoprolol tartrate 25 mg tablet 25 mg PO BID #180 tabs 10/27/22 memantine 10 mg tablet 10 mg PO BID #60 tabs 11/24/22 finasteride 5 mg tablet 5 mg PO DAILY #30 tabs 10/30/23 tamsulosin 0.4 mg capsule 0.4 mg PO QPM #30 caps 10/30/23 Allergies Allergy/AdvReac Type Severity Reaction Status Date / Time No Known Allergies Allergy Verified 05/10/24 09:06 Review of Systems 2 General: Reports: ROS unobtainable due to mental status PFSH ED 2 PFSH: Medical History Essential (primary) hypertension Cardiac arrhythmia, unspecified Benign prostatic hyperplasia without lower urinary tract symptoms Elevated PSA Mildly elevated PSA with negative TRUS/biopsy in 2010. Large benign feeling AIDE. Surgical History History of ankle surgery History of surgery on arm Family History Father , AT AGE 67 Cancer Mother , AT AGE 72 No problems noted. Denies family history of Diabetes CAD (coronary artery disease) Clotting disorder Dementia Chronic kidney disease (CKD) Suicide Anesthesia complication Bleeding disorder Lung disease Stroke Social History Smoking and tobacco/nicotine status: former use of tobacco/nicotine Alcohol intake: never Substance/Drug Use: never Marital status: / Current occupational status: retired Physical Exam 2 Const: COMMON NORMALS: alert; negative for patient oriented x3 EXAM LIMITATIONS: altered mental status O RIENTATION/CONSCIOUSNESS: Yes oriented to person; not oriented to place and not oriented to time HENMT: COMMON NORMALS: normocephalic and atraumatic HEAD & SCALP: n ormocephalic and atraumatic Eye: COMMON NORMALS: conjunctivae normal CONJUNCTIVA: Yes conjunctivae normal Neck/C-Spine: COMMON NORMALS: full ROM and supple Chest: COMMONS NORMALS: normal inspection of the chest Resp: COMMON NORMALS: normal respiratory effort Cardio: COMMON NORMALS: regular rate, regular rhythm and No murmurs present (Cardio) RATE: regular rate RHYTHM: regular rhythm GI: COMMON NORMALS: Normal to inspection, nondistended, normoactive bowel sounds present, Soft to palpation, non-tender and no masses PALPATION: Yes Soft to palpation Extremity: COMMON NORMALS: normal to inspection and full ROM Neuro: COMMON NORMALS: moves all extremities and no focal motor deficits; negative for patient oriented x3 SENSORIUM/ORIENTATION: Yes alert, Yes oriented to person, No oriented to place and No oriented to time Psych: COMMON NORMALS: mental status grossly normal, Normal thought process present and cooperative THOUGHT PROCESS: Normal thought process present Skin: COMMON NORMALS: no rashes or lesions noted and no wounds GENERAL SKIN EXAM: no rashes or lesions noted Course 2 Vital Signs: Vital signs: Vital Signs Temperature 97.8 F 07/22/24 18:00 Pulse Rate 77 07/22/24 18:00 Respiratory Rate 20 H 07/22/24 10:06 Blood Pressure 155/93 07/22/24 18:00 Pulse Oximetry 97 07/22/24 18:00 Oxygen Delivery Me thod Room Air 07/22/24 18:00 MDM - General Adult Medical Decision Making Patient presents here with history dementia with some behavioral disturbances I did speak to geriatric psych facility [facility] who will accept patient he has been medically cleared will transfer there for higher level of care of geriatric psych Medical Records I reviewed the patient's medical records. Lab Data I reviewed the patient's lab results. 07/22/24 11:08 07/22/24 11:08 Laboratory Results WBC 9.66 10^3/uL (3.29-11.43) 07/22/24 11:08 RBC 5.00 10^6/uL (3.85-5.65) 07/22/24 11:08 Hgb 15.10 g/dL (11.27-16.99) 07/22/24 11:08 Hct 44.5 % (37-53) 07/22/24 11:08 MCV 89.0 fl (82-101) 07/22/24 11:08 MCH 30.2 pg (27-33) 07/22/24 11:08 MCHC 33.9 g/dL (30-55) 07/22/24 11:08 RDW 12.4 % (12.1-15.1) 07/22/24 11:08 Plt Count 180 10^3/cmm (157-399) 07/22/24 11:08 MPV 11.5 fL (7.4-10.4) H 07/22/24 11:08 Neut % (Auto) 75.4 % 07/22/24 11:08 Lymph % (Auto) 15.1 % 07/22/24 11:08 [place] % (Auto) 8.8 % 07/22/24 11:08 Eos % (Auto) 0.0 % 07/22/24 11:08 Baso % (Auto) 0.4 % 07/22/24 11:08 Neut # (Auto) 7.28 10^3/uL (1.8-7.7) 07/22/24 11:08 Lymph # (Auto) 1.5 10^3/uL (0.8-4.8) 07/22/24 11:08 [place] # (Auto) 0.9 10^3/uL (0.2-0.9) 07/22/24 11:08 Eos # (Auto) 0.0 10^3/uL (0.0-0.8) 07/22/24 11:08 Baso # (Auto) 0.0 10^3/uL (0.0-0.1) 07/22/24 11:08 Nucleated RBC % (auto) 0 % 07/22/24 11:08 Nucleated RBCs # 0.0 /100WBC 07/22/24 11:08 Sodium 137 mmol/L (136-145) 07/22/24 11:08 Potassium 3.8 mmol/L (3.5-5.1) 07/22/24 11:08 Chloride 103 mmol/L (98-107) 07/22/24 11:08 Carbon Dioxide 23 mmol/L (22-29) 07/22/24 11:08 Anion Gap 14.8 (5-19) 07/22/24 11:08 BUN 16 mg/dL (8-23) 07/22/24 11:08 Creatinine 1.0 mg/dL (0.7-1.2) 07/22/24 11:08 GFR Calculation 74.5 mL/min (90-130) L 07/22/24 11:08 Glucose 113 mg/dL (65-115) 07/22/24 11:08 Calculated Osmolality 286 mOsm/kg (285-295) 07/22/24 11:08 Calcium 9.3 mg/dL (8.5-10.5) 07/22/24 11:08 Total Bilirubin 1.1 mg/dL (0.15-1.2) 07/22/24 11:08 AST 22 U/L (0-40) 07/22/24 11:08 ALT 25 U/L (0-41) 07/22/24 11:08 Alkaline Phosphatase 70 U/L (40-130) 07/22/24 11:08 Total Protein 7.3 g/dL (6.6-8.7) 07/22/24 11:08 Albumin 4.5 g/dL (3.5-5.2) 07/22/24 11:08 Globulin 2.8 g/dL (1.3-4.6) 07/22/24 11:08 Lipase 29 U/L (13-60) 07/22/24 11:08 TSH 0.79 uIU/mL (0.27-4.20) 07/22/24 11:08 Ethyl Alcohol < 10 mg/dL (0-10) 07/22/24 11:08 Coronavirus (PCR) Negative (Negative) 07/22/24 17:58 Influenza A (PCR) Negative (Negative) 07/22/24 17:58 Influenza Type B (PCR) Negative (Negative) 07/22/24 17:58 RSV (PCR) Negative (Negative) 07/22/24 17:58 All radiology interpretation(s) finalized by discharge EKG Data EKG 1: I personally reviewed and interpreted this EKG as follows: EKG interpretation date: 07/22/24 EKG interpretation time: 10:48 Interpretation: nsr hr [address] or t wave abnormalities qrs 101 qtc 428 Discharge Plan Discharge Patient Disposition: Xfer Psychiatric Hosp Clinical Impression: 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 Prescriptions: No Action meclizine 25 mg tablet 25 mg PO TID PRN (Reason: Nausea) aspirin 81 mg tablet,delayed release (DR/EC) 81 mg PO DAILY loratadine 10 mg tablet 10 mg PO DAILY memantine 10 mg tablet 10 mg PO BID Qty: 60 3RF metoprolol tartrate 25 mg tablet 25 mg PO BID Qty: 180 3RF omega 2-bxf-kaw-fish oil [Fish Oil] 300-1,000 mg Capsule 1 cap PO BID tamsulosin 0.4 mg Capsule 0.4 mg PO QPM Qty: 30 0RF finasteride 5 mg Tablet 5 mg PO DAILY Qty: 30 0RF terbinafine HCl 1 % Cream 1 applic TOPICAL BID paroxetine HCl 10 mg Tablet 10 mg PO DAILY galantamine 12 mg Tablet 12 mg PO BID Rx Instructions: administer with AM and PM meals lisinopril 20 mg Tablet 10 mg PO DAILY quetiapine 100 mg Tablet 50 mg PO BID divalproex 500 mg tablet extended release 24 hr 500 mg PO BEDTIME azelastine 137 mcg (0.1 %) [place],Non-Aerosol 2 spray INTRANASAL BID Rx Instructions: administer into each nostril fluticasone propionate 50 mcg/actuation [place],Suspension 2 spray INTRANASAL DAILY Rx Instructions: administer into each nostril Ensure Plus Liquid 1 ea PO DAILY atorvastatin 20 mg Tablet 10 mg PO QPM cholecalciferol (vitamin D3) 25 mcg (1,000 unit) Tablet 25 mcg PO DAILY Referrals: Seema Zee FNP [Primary Care Provider] - Discharge Diet: Advance as tolerated Discharge Activity: Resume usual activity Patient Instructions: Dementia (ED) Coding Level of Care Code ED Glass Inserter for Cierra Mao
--- NOTE | 2024-07-22 10:48 | ECG_ITS ---
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 Measurements Intervals [place] Rate: 75 P: 51 ND: 160 QRS: 64 QRSD: 101 T: 54 QT: 400 QTc: 447 Interpretive Statements SINUS RHYTHM Compared to ECG 07/02/2024 12:00:16 Sinus bradycardia no longer present Electronically Signed On 07-23-2024 18:48:17 CDT by Lee Hicks M.D. [email or web address] [email or web address] hospital for women and infantsMinerva Biotechnologiessuburban community hospital & brentwood hospitalCatamaran/store/OM/[id number]
[2024-07-22 11:13] LABS: Basophils % 0.4 %; Hematocrit 44.5 % (37-53); Lymphocytes # 1.5 10^3/uL (0.8-4.8); Lymphocytes % 15.1 %; Mean Corpuscular HGB Conc 33.9 g/dL (30-55); Mean Corpuscular Hemoglobin 30.2 pg (27-33); Mean Platelet Volume 11.5 fL (7.4-10.4); Monocytes # 0.9 10^3/uL (0.2-0.9); Monocytes % 8.8 %; Neutrophils # 7.28 10^3/uL (1.8-7.7); Neutrophils % 75.4 %; Nucleated Red Blood Cells % 0 %; Platelet Count 180 10^3/cmm (157-399); Red Cell Distribution Width 12.4 % (12.1-15.1); White Blood Count 9.66 10^3/uL (3.29-11.43)
[2024-07-22 11:29] LABS: Alanine Aminotransferase 25 U/L (0-41); Albumin Level 4.5 g/dL (3.5-5.2); Alkaline Phosphatase 70 U/L (40-130); Anion Gap 14.8 (5-19); Aspartate Amino Transferase 22 U/L (0-40); Blood Urea Nitrogen 16 mg/dL (8-23); Calcium 9.3 mg/dL (8.5-10.5); Carbon Dioxide 23 mmol/L (22-29); Chloride 103 mmol/L (98-107); Creatinine Clr Calc Pharmacy 74.7613; Globulin 2.8 g/dL (1.3-4.6); Glomerular Filtration Rate 74.5 mL/min (90-130); Glucose 113 mg/dL (65-115); Lipase 29 U/L (13-60); Osmolality Calculated 286 mOsm/kg (285-295); Potassium 3.8 mmol/L (3.5-5.1); Sodium 137 mmol/L (136-145); Total Bilirubin 1.1 mg/dL (0.15-1.2); Total Protein 7.3 g/dL (6.6-8.7)
--- NOTE | 2024-07-22 17:30 | ECG_ITS ---
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 Measurements Intervals [place] Rate: 76 P: 28 W[place]: 133 QRS: 37 QRSD: 105 T: 44 QT: 383 QTc: 433 Interpretive Statements SINUS RHYTHM Compared to ECG 07/22/2024 10:48:42 No significant changes Electronically Signed On 07-23-2024 18:46:22 CDT by Lee Hicks M.D. [email or web address]/[id number]
--- NOTE | 2024-07-22 17:34 | PC.NURSE ---
PATIENT GUARDIAN APPEARED AND PATIENT BECAME ESCALATED. PATIENT STATES THAT HE DOES NOT WANT TO GO WITH THE GUARDIAN. GUARDIAN SPEAKS WITH SISTER JACKI ON THE PHONE AND STATES THAT SHE COULD TAKE HIM, BUT GUARDIAN DOES NOT FEEL COMFORTABLE WITH THAT DECISION. GUARDIAN STATES THAT HE WOULD LIKE PATIENT TO BE PLACED IN A FACILITY [place]. PATIENT HAS BEEN THERE PRIOR AND WAS SUCCESSFUL WITH TREATMENT. PROVIDER NOTIFIED AND IS OK WITH DECISION. SEARCH FOR PLACEMENT STARTED.
[2024-07-22 18:00] VITALS: BP 155/93; PULSE 77; TEMP 36.6; O2SAT 97
[2024-07-22 18:02] LABS: Thyroid Stimulating Hormone 0.79 uIU/mL (0.27-4.20)
[2024-07-22 18:03] LABS: Alcohol Level < 10 mg/dL (0-10)
[2024-07-22 18:42] LABS: Covid PCR NEGATIVE (Negative); Influenza A NEGATIVE (Negative); Influenza B NEGATIVE (Negative); Respiratory Syncytial Virus Ce NEGATIVE (Negative)
[2024-07-22 22:07] VITALS: BP 164/72; PULSE 78; O2SAT 98
== END 2024-07-22 22:08 ==
PROVIDERS: Emergency Provider Emergency Medicine; PCP Nurse Practitioner Family
DX: G30.1 Alzheimer's disease with late onset (principal); F02.818 Dementia in other diseases classified elsewhere, unspecified severity, with other behavioral disturbance; Z79.82 Long term (current) use of aspirin; Z11.52 Encounter for screening for COVID-19; Z87.891 Personal history of nicotine dependence; I10 Essential (primary) hypertension
CPT/HCPCS: 0241U; 36415; 80053; 80307; 83690; 84443; 85025; 93005; 99284

== ENCOUNTER → 2025-03-13 14:23 | Outpatient (BNVA) | payer OTHER, SELFPAY | PROVIDERS: PCP Nurse Practitioner Family; Visit Provider Internal Medicine | DX: G30.9 Alzheimer's disease, unspecified (principal); F02.80 Dementia in other diseases classified elsewhere, unspecified severity, without behavioral disturbance, psychotic disturbance, mood disturbance, and anxiety; I48.91 Unspecified atrial fibrillation; I10 Essential (primary) hypertension; E78.5 Hyperlipidemia, unspecified; Z79.82 Long term (current) use of aspirin | CPT/HCPCS: 99213 ==